=== PATIENT | female | born 1950 | race Caucasian/White ===

== ENCOUNTER → 2016-09-15 | Outpatient (CLI) | payer MEDICARE ==
--- NOTE | 2016-09-18 09:15 | MM ---
Reason for exam: screening (asymptomatic). Last mammogram was performed 12 years ago. History: Patient is postmenopausal, has history of other cancer at age 38, and is nulliparous. Physical Findings: A clinical breast exam by your physician is recommended on an annual basis and results should be correlated with mammographic findings. MG 3D Screening Mammo W/Cad Bilateral CC and MLO view(s) were taken. Prior study comparison: September 05, 2004, left breast diagnostic mammogram. March 02, 2004, left breast special view mammogram. There are scattered fibroglandular densities. Benign calcifications. There is no discrete abnormality. No significant changes when compared with prior studies. ASSESSMENT: Benign, BI-RAD 2 RECOMMENDATION: Routine screening mammogram of both breasts in 1 year.
== END | disposition home or self-care (01) ==
LOC: MERGE 09-12 07:20 → RADMAMWWP 07:30
PROVIDERS: ATTEND Family Medicine
DX: Z12.31 Encounter for screening mammogram for malignant neoplasm of breast (principal)
CPT/HCPCS: 77063; G0202

== ENCOUNTER 2017-03-27 07:39 | Day surgery (SDC) | payer MEDICARE ==
[2017-03-23 09:06] VITALS: BMI 36.7
[~2017-03-27 07:39] MED LIST: LACTATED RINGERS 1,000 ML IV SCH
[2017-03-27 08:08] VITALS: TEMP 97.7
[2017-03-27 08:09] LABS: Glucose,Whole Blood 184 mg/dL (75-99)
[2017-03-27] MEDS ORDERED: LIDOCAINE 1% 20 ML VIAL (10MG/ML) FOR IV START INTRADERMA ONE (08:10)
[2017-03-27] MEDS ORDERED: PROPOFOL 10 MG/ML 20 ML VIAL IV ONE (08:46)
[2017-03-27 09:15] VITALS: RESP 18
--- NOTE | 2017-03-27 09:19 | P.PCN ---
Date of Procedure: 03/27/17 Preoperative Diagnosis: Postoperative Diagnosis: Procedure(s) Performed: Procedure: Colonoscopy and polypectomy. Preoperative diagnosis: Screening for neoplasia. Postoperative diagnosis: 1. Sigmoid diverticulosis with no evidence of acute diverticulitis or strictures. 2. Two small polyps snared at around the splenic and hepatic flexures but no large polyps or cancer. 3. Less than ideal preparation. Preparation: HalfLytely prep. Sedation: Was provided by anesthesia. Brief clinical history: The patient is a 67-year-old female who is referred for this evaluation for screening for neoplasia. She had a prior colonoscopy around 10 years ago. She has no abdominal complaints bleeding or anemia. She does have some change in bowels for some time and she reported passing pebble- like stools whenever she has to urinate. No bleeding or other alarm symptoms. No family history of colon cancer. Procedure: With the patient on her left lateral decubitus position and after informed consent and adequate sedation, the perianal area was inspected and it did not show any fissures or fistulas. There were no masses felt on digital rectal examination. The Olympus CFQ 160L video colonoscope was then inserted in the rectum in the usual fashion and advanced to the cecum. The preparation was less than ideal especially on the left side with solid fecal material and fecal debris that could not be washed off totally. There were multiple diverticular orifices seen scattered in the sigmoid with no evidence of acute diverticulitis or strictures. The mucosa appeared healthy. There were 2 small polyps one around the hepatic flexure and one around the splenic flexure which were snared and retrieved by suction but there were no large polyps or cancer. The patient tolerated the procedure well. Plan: The patient was reassured. Discussed dietary measures. Will await pathology results. I anticipate repeating this exam in 3 years. She will follow-up with you as planned. Implants: Indications for Procedure: Operative Findings: Description of Procedure:
[2017-03-27 09:46] LABS: Glucose,Whole Blood 183 mg/dL (75-99)
[2017-03-27 09:47] VITALS: BP 117/78; PULSE 66
== END 2017-03-27 10:00 | disposition home or self-care (01) ==
LOC: ORWHC2ENDO 07:39
DX: Z12.11 Encounter for screening for malignant neoplasm of colon (principal); D12.3 Benign neoplasm of transverse colon; K63.5 Polyp of colon; K57.30 Diverticulosis of large intestine without perforation or abscess without bleeding; J44.9 Chronic obstructive pulmonary disease, unspecified; E11.9 Type 2 diabetes mellitus without complications; I10 Essential (primary) hypertension; E78.5 Hyperlipidemia, unspecified; Z79.84 Long term (current) use of oral hypoglycemic drugs; Z79.51 Long term (current) use of inhaled steroids; Z79.899 Other long term (current) drug therapy
CPT/HCPCS: 88305; 45385; J2704

== ENCOUNTER → 2017-10-10 | Outpatient (CLI) | payer MEDICARE ==
--- NOTE | 2017-10-15 10:22 | MM ---
Reason for exam: screening (asymptomatic). Last mammogram was performed 1 year and 1 month ago. History: Patient is postmenopausal, has history of other cancer at age 38, and is nulliparous. Physical Findings: A clinical breast exam by your physician is recommended on an annual basis and results should be correlated with mammographic findings. MG 3D Screening Mammo W/Cad Bilateral CC and MLO view(s) were taken. Prior study comparison: September 15, 2016, bilateral MG 3d screening mammo w/cad. September 05, 2004, left breast diagnostic mammogram. There are scattered fibroglandular densities. No significant changes when compared with prior studies. ASSESSMENT: Negative, BI-RAD 1 RECOMMENDATION: Routine screening mammogram of both breasts in 1 year.
== END | disposition home or self-care (01) ==
LOC: RADMAMWWP 06:59
PROVIDERS: ATTEND Family Medicine
DX: Z12.31 Encounter for screening mammogram for malignant neoplasm of breast (principal)
CPT/HCPCS: 77063; 77067

== ENCOUNTER → 2018-06-19 | Outpatient (CLI) | payer MEDICARE ==
--- NOTE | 2018-06-19 10:46 | XR ---
EXAMINATION TYPE: XR chest 2V DATE OF EXAM: 06/19/2018 COMPARISON: 02/05/2012r INDICATION: Dizziness difficulty breathing TECHNIQUE: Frontal and lateral views of the chest are obtained. FINDINGS: The heart size is mildly prominent. The pulmonary vasculature is normal. There is a large thin walled cavitary area within the right upper lobe with an air-fluid level measur ing 7.8 x 9.5 cm. This may be slightly thicker along the inferior lateral right margin. This appears to been interval finding. CT chest is recommended for additional evaluation.. IMPRESSION: 1. Large cavitation within the right upper lobe with an air-fluid level. Additional workup is recomme nded. Infectious etiology should be considered. Neoplasm should be considered within the differential . A [place] level critical message alert has been initiated for Antonio Miranda MD via the [employer] Critical Results System on 06/19/2018 10:43 AM. This message alert has been sent to Antonio Miranda MD via the preferences provided by the clinician for the receipt of Radiology Critical F indings. Message ID [id number].
[2018-06-19 11:27] LABS: Basophils # (A) 0.1 k/uL (0-0.2); Basophils % (A) 1 %; Eosinophils # (A) 0.5 k/uL (0-0.7); Eosinophils % (A) 4 %; HCT 34.6 % (34.0-46.0); HGB 11.1 gm/dL (11.4-16.0); Lymphocytes # (A) 2.3 k/uL (1.0-4.8); Lymphocytes % (A) 17 %; MCHC 32.1 g/dL (31.0-37.0); MCV 90.3 fL (80.0-100.0); Mean Platelet Volume 6.9; Monocytes # (A) 0.7 k/uL (0-1.0); Monocytes % (A) 5 %; Neutrophils # (A) 9.8 k/uL (1.3-7.7); Neutrophils % (A) 72 %; Platelet Count 497 k/uL (150-450); RBC 3.83 m/uL (3.80-5.40); RDW 15.3 % (11.5-15.5); WBC 13.6 k/uL (3.8-10.6)
[2018-06-19 16:59] LABS: Albumin 4.3 g/dL (3.80-4.90); Albumin/Globulin Ratio 1.65 (1.20-2.10); Anion Gap 8.9 mmol/L (4.00-12.00); Carbon Dioxide 27.1 mmol/L (21.6-31.8); Globulin 2.6 g/dL (2.1-3.7); Potassium 4.3 mmol/L (3.5-5.5); Total Bilirubin 0.4 mg/dL (0.2-1.2); Total Protein 6.9 g/dL (6.2-8.2)
[2018-06-21 10:37] LABS: Calcium 13.8 mg/dL (8.7-10.3)
== END | disposition home or self-care (01) ==
LOC: LABWHC1 09:46
PROVIDERS: ATTEND Internal Medicine Cardiovascular Disease
DX: R06.02 Shortness of breath (principal); R60.0 Localized edema
CPT/HCPCS: 36415; 71046; 80053; 83880; 85025

== ENCOUNTER 2018-07-03 16:13 | Inpatient (IN) | payer MEDICARE ==
--- NOTE | 2018-07-03 16:50 | ED ---
General Adult HPI - General Chief complaint: Recheck/Abnormal Lab/Rx Stated complaint: high calcium levels Time Seen by Provider: 07/03/18 16:21 Source: patient, RN notes reviewed Mode of arrival: wheelchair Limitations: no limitations - History of Present Illness Initial comments: Patient is a pleasant 68-year-old female presenting to the emergency department with concern for hypercalcemia. Patient has a difficult time providing history. Patient apparently has been having right hip discomfort for several months and decided to see a staff radiologist for this. Patient wanted her heart checked first. Patient did have x-rays done showing mass on the right side of the lung and was referred to oncologist. Blood work was done there yesterday. Patient received a call today stating that her calcium level was too high and that she would have to come to the hospital. Patient was also made aware that she would need a biopsy done. Patient denies muscle weakness. Patient still has right hip pain which is in the sciatic region. Patient believes she has sciatica. Has not had x-rays done of her right hip. - Related Data Home Medications Medication Instructions Recorded Confirmed Albuterol Nebulized [Ventolin 2.5 mg INHALATION RT-BID PRN 03/23/17 07/03/18 Nebulized] Budesonide/Formoterol Fumarate 2 puff INHALATION RT-HS 03/23/17 07/03/18 [Symbicort 160-4.5 Mcg Inhaler] Cholecalciferol [Vitamin D3] 2,000 unit PO DAILY 03/23/17 07/03/18 Hydrochlorothiazide 25 mg PO DAILY 03/23/17 07/03/18 Krill Oil 500 mg PO DAILY 03/23/17 07/03/18 Lisinopril 40 mg PO DAILY 03/23/17 07/03/18 Simvastatin [Zocor] 20 mg PO HS 03/23/17 07/03/18 Tiotropium [place] [Spiriva] 1 cap INHALATION RT-DAILY 03/23/17 07/03/18 Albuterol Sulfate [Proair Hfa] 2 puff INHALATION RT-Q6H PRN 07/03/18 07/03/18 Hydrocodone/Acetaminophen [[place] 1 tab PO Q4H PRN 07/03/18 07/03/18 10-325] Naproxen [Naprosyn] 500 mg PO Q12HR PRN 07/03/18 07/03/18 amLODIPine [Norvasc] 10 mg PO HS 07/03/18 07/03/18 sitaGLIPtin PHOS/metFORMIN HCL 1 tab PO BID 07/03/18 07/03/18 [Janumet 50-1,000 mg Tablet] Allergies Allergy/AdvReac Type Severity Reaction Status Date / Time No Known Allergies Allergy Verified 07/03/18 16:50 Review of Systems ROS Statement: Those systems with pertinent positive or pertinent negative responses have been documented in the HPI. ROS Other: All systems not noted in ROS Statement are negative. Constitutional: Denies: fever Eyes: Denies: eye pain ENT: Denies: ear pain Respiratory: Denies: cough Cardiovascular: Reports: chest pain (Has been going on for months) Endocrine: Reports: fatigue Gastrointestinal: Denies: abdominal pain Genitourinary: Denies: dysuria Musculoskeletal: Reports: arthralgia (Right hip/sciatic region) Skin: Denies: rash Neurological: Denies: headache Past Medical History Past Medical History: Cancer, COPD, Diabetes Mellitus, Hyperlipidemia, Hypertension Additional Past Medical History / Comment(s): MALIGNANT MELANOMA BACK-REMOVED History of Any Multi-Drug Resistant Organisms: None Reported Past Surgical History: Adenoidectomy, Joint Replacement, Tonsillectomy Additional Past Surgical History / Comment(s): AMPLATZERA ASD OCCLUDER 2002. LT GILBERT X 2. COLONOSCOPY. MELANOMA REMOVED FROM BACK. BILAT CATARACTS Past Anesthesia/Blood Transfusion Reactions: No Reported Reaction Past Psychological History: No Psychological Hx Reported Smoking Status: Current every day smoker Past Alcohol Use History: None Reported Past Drug Use History: None Reported - Past Family History Sister(s) Family Medical History: Cancer Mother Family Medical History: Cancer Father Family Medical History: Cancer Daughter(s) Family Medical History: Cancer Brother(s) Family Medical History: Cancer General Exam Limitations: no limitations General appearance: alert, in no apparent distress Head exam: Present: atraumatic Eye exam: Present: normal appearance, PERRL ENT exam: Present: normal oropharynx Neck exam: Present: normal inspection Respiratory exam: Present: wheezes (Patient states this is chronic and does not want a breathing treatment at this time. Patient does take them at home) Cardiovascular Exam: Present: regular rate, normal rhythm GI/Abdominal exam: Present: soft. Absent: tenderness Extremities exam: Present: normal inspection, full ROM. Absent: tenderness (No hip tenderness), calf tenderness Back exam: Present: normal inspection Neurological exam: Present: alert. Absent: motor sensory deficit Psychiatric exam: Present: normal affect, normal mood Skin exam: Present: normal color Course Vital Signs 07/03/18 16:18 Temperature 97.6 F Pulse Rate 96 Respiratory 20 Rate Blood Pressure 138/81 O2 Sat by Pulse 96 Oximetry EKG Findings - EKG Comments: EKG Findings:: Sinus rhythm at 90. NM 192. QRS 100. QT 338. QTC 413. Right axis. Incomplete right bundle-branch block. Nonspecific ST-T. Medical Decision Making - Medical Decision Making Patient reevaluated and updated. Case was discussed in detail with practitioner Malik, covering for Dr. Rocha, who will admit for Dr. Ariza. Patient case also discussed in detail with Dr. Reynolds who does recommend IV fluids as well as biphosphonate. - Lab Data Result diagrams: 07/03/18 16:40 07/03/18 16:40 Lab Results 07/03/18 07/03/18 07/03/18 Range/Units 16:40 16:40 16:40 WBC 12.1 H (3.8-10.6) k/uL RBC 3.74 L (3.80-5.40) m/uL Hgb 10.6 L (11.4-16.0) gm/dL Hct 33.2 L (34.0-46.0) % MCV 88.8 (80.0-100.0) fL MCH 28.2 (25.0-35.0) pg MCHC 31.8 (31.0-37.0) g/dL RDW 15.0 (11.5-15.5) % Plt Count 454 H (150-450) k/uL Neutrophils % 74 % Lymphocytes % 15 % Monocytes % 4 % Eosinophils % 4 % Basophils % 0 % Neutrophils # 9.0 H (1.3-7.7) k/uL Lymphocytes # 1.8 (1.0-4.8) k/uL Monocytes # 0.5 (0-1.0) k/uL Eosinophils # 0.5 (0-0.7) k/uL Basophils # 0.1 (0-0.2) k/uL PT 9.8 (9.0-12.0) sec INR 0.9 (<1.2) APTT 25.3 (22.0-30.0) sec Sodium 136 L (137-145) mmol/L Potassium 5.0 (3.5-5.1) mmol/L Chloride 101 (98-107) mmol/L Carbon Dioxide 26 (22-30) mmol/L Anion Gap 9 mmol/L BUN 28 H (7-17) mg/dL Creatinine 1.37 H (0.52-1.04) mg/dL Est GFR (CKD-EPI)AfAm 46 (>60 ml/min/1.73 sqM) Est GFR (CKD-EPI)NonAf 40 (>60 ml/min/1.73 sqM) Glucose 111 H (74-99) mg/dL Calcium 14.4 H* (8.4-10.2) mg/dL Ionized Calcium Rishi 7.4 H* (4.5-5.3) mg/dL Magnesium 1.6 (1.6-2.3) mg/dL Total Bilirubin 0.8 (0.2-1.3) mg/dL AST 25 (14-36) U/L ALT 21 (9-52) U/L Alkaline Phosphatase 75 (38-126) U/L Total Protein 7.4 (6.3-8.2) g/dL Albumin 3.8 (3.5-5.0) g/dL TSH 1.220 (0.465-4.680) mIU/L Free T4 1.54 (0.78-2.19) ng/dL Free T3 pg/mL 2.7 L (2.8-5.3) pg/ml - Radiology Data Interpreted by me: Chest x-ray has concern for right upper lobe mass. X-ray of the right hip has concern for bony abnormality in the proximal femur. Critical Care Time Critical Care Time: Yes Total Critical Care Time: 32 Disposition Clinical Impression: Hypercalcemia Disposition: ADMITTED IP TO THIS [facility] Condition: Serious Is patient prescribed a controlled substance at d/c from ED?: No Referrals: Bairon Ariza III, MD [Primary Care Provider] - 1-2 days Decision Time: 18:44
[2018-07-03 17:09] LABS: Basophils # (A) 0.1 k/uL (0-0.2); Basophils % (A) 0 %; Eosinophils # (A) 0.5 k/uL (0-0.7); Eosinophils % (A) 4 %; HCT 33.2 % (34.0-46.0); HGB 10.6 gm/dL (11.4-16.0); Lymphocytes # (A) 1.8 k/uL (1.0-4.8); Lymphocytes % (A) 15 %; MCH 28.2 pg (25.0-35.0); MCHC 31.8 g/dL (31.0-37.0); MCV 88.8 fL (80.0-100.0); Mean Platelet Volume 7.2; Monocytes # (A) 0.5 k/uL (0-1.0); Monocytes % (A) 4 %; Neutrophils % (A) 74 %; Platelet Count 454 k/uL (150-450); RBC 3.74 m/uL (3.80-5.40); WBC 12.1 k/uL (3.8-10.6)
[2018-07-03 17:15] LABS: INR 0.9 (<1.2); Partial Thromboplastin Time 25.3 sec (22.0-30.0); Prothrombin Time 9.8 sec (9.0-12.0)
[2018-07-03 17:19] LABS: Ionized Calcium 7.4 mg/dL (4.5-5.3)
[2018-07-03] MEDS ORDERED: SODIUM CHLORIDE 0.9% 1,000 ML IV STA (17:22)
[2018-07-03] MEDS ORDERED: SODIUM CHLORIDE 0.9% 500 ML 500 ML IV STA (17:22)
[2018-07-03 17:27] LABS: Albumin 3.8 g/dL (3.5-5.0); Magnesium 1.6 mg/dL (1.6-2.3); Total Bilirubin 0.8 mg/dL (0.2-1.3); Total Protein 7.4 g/dL (6.3-8.2)
[2018-07-03 17:42] LABS: Calcium 14.4 mg/dL (8.4-10.2)
[2018-07-03 17:44] LABS: T4, Free (Free Thyroxine) 1.54 ng/dL (0.78-2.19)
[2018-07-03] MEDS ORDERED: ZOLEDRONIC ACID 4 MG in SODIUM CHLORIDE 0.9% 100 ML IV ONE (18:45)
[2018-07-03] MEDS ORDERED: NALOXONE 0.4 MG/ML 1 ML VIAL IV PRN (18:46)
--- NOTE | 2018-07-03 19:33 | XR ---
EXAMINATION TYPE: XR Hip RT and AP Pelvis DATE OF EXAM: 07/03/2018 COMPARISON: NONE HISTORY: Hip pain TECHNIQUE: A single AP view of the pelvis is obtained. Two views of the right hip are obtained. FINDINGS: There is a 4 cm destructive lesion involving the lateral cortex of the subtrochanteric righ t femur. I see no fracture line. Hip joint spaces fairly normal. The pelvic ring is intact. There is left hip prosthesis. Sacroiliac joints appear intact. IMPRESSION: Large destructive lesion in the proximal femur suggestive of tumor. Follow-up is recommended. No frac ture seen.
--- NOTE | 2018-07-03 19:35 | XR ---
EXAMINATION TYPE: XR chest 2V DATE OF EXAM: 07/03/2018 COMPARISON: 06/19/2018 HISTORY: Dysrhythmia TECHNIQUE: Frontal and lateral views of the chest are obtained. FINDINGS: There is some linear and nodular infiltrate in the right upper lobe. Heart is enlarged. Th ere is no heart failure. There are chest leads. Density in the right upper lobe relates to a right up per lobe cavity. The bony thorax is intact. IMPRESSION: 8 cm cavitary lesion in the right upper lobe not significantly different than old chest x-ray. This could relate to infected pneumatocele or necrotic tumor or emphysema with infection. Stab le cardiomegaly. No heart failure.
[2018-07-03] MEDS: SODIUM CHLORIDE 0.9% 1,000 ML IV SCH (21:46)
[2018-07-03] MEDS ORDERED: IPRATROPIUM-ALBUTEROL 3 ML NEB INHALATION PRN (21:59)
[2018-07-03] MEDS ORDERED: ACETAMINOPHEN TAB 325 MG TAB PO PRN (22:03)
[2018-07-03] MEDS ORDERED: ONDANSETRON 4 MG/2 ML VIAL IVP PRN (22:03)
[2018-07-03] MEDS: MELATONIN 3 MG TABLET PO SCH (22:29)
[2018-07-03] MEDS: ATORVASTATIN 10 MG TAB PO SCH (22:29)
[2018-07-03] MEDS: HYDROcodone/APAP 10-325MG 1 EACH TAB PO PRN (22:30)
[2018-07-03 23:06] LABS: Creatine Kinase 124 U/L (30-135)
[2018-07-03 23:19] LABS: Creatine Kinase MB 2.1 ng/mL (0.0-2.4); Troponin I <0.012 ng/mL (0.000-0.034)
[2018-07-04] MEDS: SODIUM CHLORIDE 0.9% 1,000 ML IV SCH ×4 (03:54→23:23)
[2018-07-04 05:44] LABS: Glucose,Whole Blood 104 mg/dL (75-99)
[2018-07-04] MEDS: INSULIN ASPART 100 UNIT/ML 1 ML 10 ML VIAL SQ SCH ×4 (06:52→21:10)
[2018-07-04 06:56] LABS: Basophils # (A) 0.1 k/uL (0-0.2); Basophils % (A) 1 %; Eosinophils # (A) 0.6 k/uL (0-0.7); Eosinophils % (A) 7 %; HCT 31.4 % (34.0-46.0); HGB 9.9 gm/dL (11.4-16.0); Lymphocytes # (A) 1.6 k/uL (1.0-4.8); Lymphocytes % (A) 18 %; MCH 28.8 pg (25.0-35.0); MCHC 31.6 g/dL (31.0-37.0); MCV 91.2 fL (80.0-100.0); Mean Platelet Volume 6.3; Monocytes # (A) 0.5 k/uL (0-1.0); Monocytes % (A) 6 %; Neutrophils # (A) 5.7 k/uL (1.3-7.7); Neutrophils % (A) 65 %; Platelet Count 419 k/uL (150-450); RBC 3.44 m/uL (3.80-5.40); RDW 15.1 % (11.5-15.5); WBC 8.8 k/uL (3.8-10.6)
[2018-07-04 07:08] LABS: Albumin 2.9 g/dL (3.5-5.0); Magnesium 1.6 mg/dL (1.6-2.3); Phosphorus 3.1 mg/dL (2.5-4.5); Potassium 4.1 mmol/L (3.5-5.1); Total Bilirubin 0.5 mg/dL (0.2-1.3); Total Protein 5.9 g/dL (6.3-8.2)
[2018-07-04 07:17] LABS: Calcium 13.7 mg/dL (8.4-10.2)
[2018-07-04] MEDS: IPRATROPIUM 0.5 MG/2.5 ML NEBU INHALATION SCH ×2 (07:48→11:18)
[2018-07-04] MEDS: IPRATROPIUM-ALBUTEROL 3 ML NEB INHALATION SCH ×4 (07:48→19:28)
[2018-07-04] MEDS: CHOLECALCIFEROL 1,000 UNIT TAB PO SCH (08:55)
[2018-07-04] MEDS: CALCITONIN INJ 200 UNIT/ML (MDV) VIAL SQ SCH ×2 (09:55→22:12)
[2018-07-04] MEDS: HYDROcodone/APAP 10-325MG 1 EACH TAB PO PRN (09:55)
--- NOTE | 2018-07-04 10:33 | P.CRDCN ---
History of Present Illness Consult date: 07/04/18 Requesting physician: Lynda Rocha Chief complaint: Right hip pain, shortness of breath History of present illness: This is a pleasant 68-year-old female with history of hypertension, hyperlipidemia, COPD, significant history of smoking, who was recently seen Dr. Miranda in the office as a new patient. She was evaluated there because of symptoms of shortness of breath and bilateral leg swelling. Patient had a CAT scan of the chest which showed right upper lobe large thick-walled cavitary mass with nodular borders, right hilar mediastinal tissue mass, and extensive mediastinal adenopathy most compatible with metastatic lung carcinoma. Bronchoscopy or percutaneous biopsy of the right apical pleural mass could provide a definitive diagnosis. Left pulmonary nodules are subcentimeter nonspecific. Numerous metastatic right pulmonary nodules are noted. Patient was at the office yesterday underwent an echocardiogram with Doppler study and also had a Holter monitor placed. She presented to the hospital on this occasion mainly with symptoms of right hip pain which was quite severe, she also was in to see her oncologist yesterday and was recommended to come to the hospital for admission because of elevated calcium levels. She had a chest x- ray performed here which showed an 8 cm cavitary lesion in the right upper lobe not significantly different than her prior x-ray. An x-ray of the right hip and pelvis was performed which revealed a large destructive lesion in the proximal femur suggestive of tumor. EKG performed on arrival here showed a normal sinus rhythm with occasional PVC, incomplete right bundle branch block pattern, possible right ventricular hypertrophy and nonspecific ST-T wave changes. Blood pressure on arrival here 138/80 with a heart rate in the 90s, 96 % on room air. Blood pressure this morning 128/60 with a heart rate in the 60s , 91% on room air. White blood cell count on admission 12.1, hemoglobin 10.6, sodium 136, potassium 5.0, BUN 28, creatinine 1.3. Calcium level on admission 14.4, ionized calcium measurement 7.4. Magnesium 1.6 troponin negative. TSH 1.2, free T4 1 0.5, free T3 2 0.7. This morning's labs, white blood cell count 8.8, hemoglobin 9.9, platelet count 419. Sodium 137, potassium 4.1, BUN 23 and creatinine 1.4. At the time of my examination this morning, the patient's main complaint is that of severe pain in her right hip. She denies any chest discomfort, she does have a persistent productive cough. Past Medical History Past Medical History: Cancer, COPD, Diabetes Mellitus, Hyperlipidemia, Hypertension Additional Past Medical History / Comment(s): MALIGNANT MELANOMA BACK-REMOVED History of Any Multi-Drug Resistant Organisms: None Reported Past Surgical History: Adenoidectomy, Joint Replacement, Tonsillectomy Additional Past Surgical History / Comment(s): AMPLATZERA ASD OCCLUDER 2002. LT GILBERT X 2. COLONOSCOPY. MELANOMA REMOVED FROM BACK. BILAT CATARACTS Past Anesthesia/Blood Transfusion Reactions: No Reported Reaction Past Psychological History: No Psychological Hx Reported Smoking Status: Current every day smoker Past Alcohol Use History: None Reported Additional Past Alcohol Use History / Comment(s): SMOKES 1/2 - 1 PPD SINCE AGE 21 Past Drug Use History: None Reported - Past Family History Sister(s) Family Medical History: Cancer Mother Family Medical History: Cancer Father Family Medical History: Cancer Daughter(s) Family Medical History: Cancer Brother(s) Family Medical History: Cancer Medications and Allergies Home Medications Medication Instructions Recorded Confirmed Type Albuterol Nebulized [Ventolin 2.5 mg INHALATION RT-BID PRN 03/23/17 07/03/18 History Nebulized] Budesonide/Formoterol Fumarate 2 puff INHALATION RT-HS 03/23/17 07/03/18 History [Symbicort 160-4.5 Mcg Inhaler] Cholecalciferol [Vitamin D3] 2,000 unit PO DAILY 03/23/17 07/03/18 History Hydrochlorothiazide 25 mg PO DAILY 03/23/17 07/03/18 History Krill Oil 500 mg PO DAILY 03/23/17 07/03/18 History Lisinopril 40 mg PO DAILY 03/23/17 07/03/18 History Simvastatin [Zocor] 20 mg PO HS 03/23/17 07/03/18 History Tiotropium [place] [Spiriva] 1 cap INHALATION RT-DAILY 03/23/17 07/03/18 History Albuterol Sulfate [Proair Hfa] 2 puff INHALATION RT-Q6H PRN 07/03/18 07/03/18 History Hydrocodone/Acetaminophen [[place] 1 tab PO Q4H PRN 07/03/18 07/03/18 History 10-325] Naproxen [Naprosyn] 500 mg PO Q12HR PRN 07/03/18 07/03/18 History amLODIPine [Norvasc] 10 mg PO HS 07/03/18 07/03/18 History sitaGLIPtin PHOS/metFORMIN HCL 1 tab PO BID 07/03/18 07/03/18 History [Janumet 50-1,000 mg Tablet] Allergies Allergy/AdvReac Type Severity Reaction Status Date / Time No Known Allergies Allergy Verified 07/03/18 16:50 Physical Exam Vitals: Vital Signs Temp Pulse Pulse Resp BP BP Pulse Ox 07/04/18 08:00 97.0 F L 68 16 128/66 91 L 07/04/18 03:51 97.0 F L 66 17 134/67 93 L 07/03/18 23:47 97.9 F 88 18 136/77 92 L 07/03/18 20:00 80 19 07/03/18 19:42 73 19 153/73 97 07/03/18 19:36 98.0 F 87 17 135/75 93 L 07/03/18 16:18 97.6 F 96 20 138/81 96 Intake and Output 07/03/18 07/04/18 07/04/18 22:59 06:59 14:59 Intake Total 220 Balance 220 Intake: Oral 220 Other: Voiding Method Toilet Toilet # Voids 1 1 Weight 88.451 kg 88.8 kg PHYSICAL EXAMINATION: GENERAL: 68-year-old female in no acute distress at the time of my examination HEENT: Head is atraumatic, normocephalic. Pupils equal, round. Sclera anicteric. Conjunctiva are clear. Mucous membranes of the mouth are moist. Neck is supple. There is no elevated jugular venous pressure. No carotid bruit is heard. HEART EXAMINATION: Heart S1, S2 normal. No murmur or gallop heard. CHEST EXAMINATION: Lungs reveal scattered coarse rhonchi throughout. ABDOMEN: Soft, nontender. Bowel sounds are heard. No organomegaly noted. EXTREMITIES: 2+ peripheral pulses with evidence of peripheral edema and no calf tenderness noted. NEUROLOGIC patient is awake, alert and oriented X3. . Results - Results Results: EKG shows a normal sinus rhythm with occasional PVC, incomplete right bundle branch block pattern and nonspecific ST-T wave changes 07/04/18 06:24 07/04/18 06:24 Cardiac Enzymes 07/03/18 07/03/18 07/04/18 Range/Units 16:40 16:51 06:24 AST 25 14 (14-36) U/L CK-MB (CK-2) 2.1 (0.0-2.4) ng/mL Troponin I <0.012 (0.000-0.034) ng/mL Coagulation 07/03/18 Range/Units 16:40 PT 9.8 (9.0-12.0) sec APTT 25.3 (22.0-30.0) sec CBC 07/03/18 07/04/18 Range/Units 16:40 06:24 WBC 12.1 H 8.8 (3.8-10.6) k/uL RBC 3.74 L 3.44 L (3.80-5.40) m/uL Hgb 10.6 L 9.9 L (11.4-16.0) gm/dL Hct 33.2 L 31.4 L (34.0-46.0) % Plt Count 454 H 419 (150-450) k/uL Comprehensive Metabolic Panel 07/03/18 07/04/18 Range/Units 16:40 06:24 Sodium 136 L 137 (137-145) mmol/L Potassium 5.0 4.1 (3.5-5.1) mmol/L Chloride 101 106 (98-107) mmol/L Carbon Dioxide 26 27 (22-30) mmol/L BUN 28 H 23 H (7-17) mg/dL Creatinine 1.37 H 1.40 H (0.52-1.04) mg/dL Glucose 111 H 96 (74-99) mg/dL Calcium 14.4 H* 13.7 H* (8.4-10.2) mg/dL AST 25 14 (14-36) U/L ALT 21 16 (9-52) U/L Alkaline Phosphatase 75 70 (38-126) U/L Total Protein 7.4 5.9 L (6.3-8.2) g/dL Albumin 3.8 2.9 L (3.5-5.0) g/dL Current Medications Generic Name Dose Route Start Last Admin Trade Name Freq PRN Reason Stop Dose Admin Acetaminophen 650 mg 07/03/18 22:03 Tylenol Tab PO Q6HR PRN Fever and/ or Pain Hydrocodone Bitart/Acetaminophen 1 each 07/03/18 21:58 07/04/18 09:55 [place] 10 PO 1 each Q4H PRN Administration Pain Albuterol/Ipratropium 3 ml 07/04/18 08:00 07/04/18 07:48 Duoneb 0.5 Mg-3 Mg/3 Ml Soln INHALATION Not Given RT-QID MABLE Albuterol/Ipratropium 3 ml 07/03/18 21:59 Duoneb 0.5 Mg-3 Mg/3 Ml Soln INHALATION RT-Q2H PRN Shortness Of Breath Or Wheezing Atorvastatin Calcium 10 mg 07/03/18 21:00 07/03/18 22:29 Lipitor PO 10 mg HS MABLE Administration Budesonide/Formoterol Fumarate 2 puff 07/04/18 20:00 Symbicort 160-4.5 Mcg Inhaler INHALATION RT-HS MABLE Calcitonin [place] 350 unit 07/04/18 09:15 07/04/18 09:55 Miacalcin SQ 07/05/18 21:01 350 unit Q12HR MABLE Administration Cholecalciferol 2,000 unit 07/04/18 09:00 07/04/18 08:55 Vitamin D3 PO 2,000 unit DAILY MABLE Administration Hydromorphone HCl 0.5 mg 07/03/18 22:01 Dilaudid IVP Q4HR PRN Breakthrough Pain Sodium Chloride 1,000 mls @ 150 mls/hr 07/03/18 19:00 07/04/18 08:55 Saline 0.9% IV 150 mls/hr .Q6H40M MABLE Administration Insulin Aspart 0 unit 07/04/18 07:30 07/04/18 06:52 Novolog SQ Not Given ACHS [facility] Protocol Ipratropium [place] 0.5 mg 07/04/18 08:00 07/04/18 07:48 Atrovent Nebulized INHALATION Not Given RT-QID MABLE Melatonin 6 mg 07/03/18 22:15 07/03/18 22:29 Melatonin PO 6 mg HS MABLE Administration Naloxone HCl 0.2 mg 07/03/18 18:46 Narcan IV Q2M PRN Opioid Reversal Ondansetron HCl 4 mg 07/03/18 22:03 Zofran IVP Q6HR PRN Nausea And Vomiting Intake and Output 07/03/18 07/04/18 07/04/18 22:59 06:59 14:59 Intake Total 220 Balance 220 Intake: Oral 220 Other: Voiding Method Toilet Toilet # Voids 1 1 Weight 88.451 kg 88.8 kg 07/04/18 06:24 07/04/18 06:24 EKG Interpretations (text) EKG shows a normal sinus rhythm with occasional PVC, incomplete right bundle branch block pattern and nonspecific ST-T wave changes Assessment and Plan Plan: Assessment and plan #1 symptoms of severe right hip pain with evidence of a large destructive lesion in the proximal femur suggestive of tumor. #2 hypercalcemia #3 right upper lobe cavitary mass noted on computed tomography scan and chest x- ray. Oncology following. #4 hypertension #5 hyperlipidemia #6 nicotine dependence #7 COPD Plan Patient had an echocardiogram with Doppler study performed in the office yesterday we will get a report of that. She still has a 24-hour Holter monitor on, we'll continue to monitor her here. We will resume the patient's Norvasc and hydrochlorothiazide. Continue current therapy. DNP note has been reviewed, I agree with a documented findings and plan of care. Patient was seen and examined.
[2018-07-04] MEDS: HYDROmorphone 1 MG/ML 1 ML SYRINGE IVP PRN ×3 (10:45→21:22)
[2018-07-04 12:03] LABS: Glucose,Whole Blood 125 mg/dL (75-99)
[2018-07-04] MEDS ORDERED: ALBUTEROL NEBULIZED 2.5 MG/3 ML INHALATION PRN (12:46)
[2018-07-04] MEDS ORDERED: ALBUTEROL INHALER 60 PUFF/8 GM INHALER INHALATION PRN (12:46)
--- NOTE | 2018-07-04 12:46 | P.HPIM ---
History of Present Illness Present is a very pleasant 68-year-old female admitted for hypercalcemia. Patient is hypotensive because concussion going up to 14.5. Patient was recently diagnosed with cancer after the biopsy of her right upper lobe. Patient is chronic smoker smokes about 1 pack per day does have history of COPD not in acute exacerbation. Patient denied any fevers chills nausea vomiting abdominal pain. Patient is presently on zolindronic acid, IV fluids at 1 50 mL per hour and calcitonin. Patient's creatinine is bit worse to 1.4. Recent creatinine appears to be around 1.3. Patient denied any significant shortness of breath patient is comparing of right hip pain undergoing bone scan. Review of Systems REVIEW OF SYSTEMS: CONSTITUTIONAL: No fever, no malaise, no fatigue. HEENT: No recent visual problems or hearing problems. Denied any sore throat. CARDIOVASCULAR: No chest pain, orthopnea, PND, no palpitations, no syncope. PULMONARY: No shortness of breath, no cough, no hemoptysis. GASTROINTESTINAL: No diarrhea, no nausea, no vomiting, no abdominal pain. Normoactive bowel sounds. NEUROLOGICAL: No headaches, no weakness, no numbness. HEMATOLOGICAL: Denies any bleeding or petechiae. GENITOURINARY: Denies any burning micturition, frequency, or urgency. MUSCULOSKELETAL/RHEUMATOLOGICAL: Denies any joint pain, swelling, or any muscle pain. ENDOCRINE: Denies any polyuria or polydipsia. The rest of the 14-point review of systems is negative. Past Medical History Past Medical History: Cancer, COPD, Diabetes Mellitus, Hyperlipidemia, Hypertension Additional Past Medical History / Comment(s): MALIGNANT MELANOMA BACK-REMOVED History of Any Multi-Drug Resistant Organisms: None Reported Past Surgical History: Adenoidectomy, Joint Replacement, Tonsillectomy Additional Past Surgical History / Comment(s): AMPLATZERA ASD OCCLUDER 2001. LT GILBERT X 2. COLONOSCOPY. MELANOMA REMOVED FROM BACK. BILAT CATARACTS Past Anesthesia/Blood Transfusion Reactions: No Reported Reaction Past Psychological History: No Psychological Hx Reported Smoking Status: Current every day smoker Past Alcohol Use History: None Reported Additional Past Alcohol Use History / Comment(s): SMOKES 1/2 - 1 PPD SINCE AGE 21 Past Drug Use History: None Reported - Past Family History Sister(s) Family Medical History: Cancer Mother Family Medical History: Cancer Father Family Medical History: Cancer Daughter(s) Family Medical History: Cancer Brother(s) Family Medical History: Cancer Medications and Allergies Home Medications Medication Instructions Recorded Confirmed Type Albuterol Nebulized [Ventolin 2.5 mg INHALATION RT-BID PRN 03/23/17 07/03/18 History Nebulized] Budesonide/Formoterol Fumarate 2 puff INHALATION RT-HS 03/23/17 07/03/18 History [Symbicort 160-4.5 Mcg Inhaler] Cholecalciferol [Vitamin D3] 2,000 unit PO DAILY 03/23/17 07/03/18 History Hydrochlorothiazide 25 mg PO DAILY 03/23/17 07/03/18 History Krill Oil 500 mg PO DAILY 03/23/17 07/03/18 History Lisinopril 40 mg PO DAILY 03/23/17 07/03/18 History Simvastatin [Zocor] 20 mg PO HS 03/23/17 07/03/18 History Tiotropium [place] [Spiriva] 1 cap INHALATION RT-DAILY 03/23/17 07/03/18 History Albuterol Sulfate [Proair Hfa] 2 puff INHALATION RT-Q6H PRN 07/03/18 07/03/18 History Hydrocodone/Acetaminophen [[place] 1 tab PO Q4H PRN 07/03/18 07/03/18 History 10-325] Naproxen [Naprosyn] 500 mg PO Q12HR PRN 07/03/18 07/03/18 History amLODIPine [Norvasc] 10 mg PO HS 07/03/18 07/03/18 History sitaGLIPtin PHOS/metFORMIN HCL 1 tab PO BID 07/03/18 07/03/18 History [Janumet 50-1,000 mg Tablet] Allergies Allergy/AdvReac Type Severity Reaction Status Date / Time No Known Allergies Allergy Verified 07/03/18 16:50 Physical Exam Vitals: Vital Signs Temp Pulse Pulse Resp BP BP Pulse Ox 07/04/18 12:00 97.1 F L 71 16 127/73 94 L 07/04/18 11:12 72 07/04/18 11:02 72 07/04/18 08:00 97.0 F L 68 16 128/66 91 L 07/04/18 03:51 97.0 F L 66 17 134/67 93 L 07/03/18 23:47 97.9 F 88 18 136/77 92 L 07/03/18 20:00 80 19 07/03/18 19:42 73 19 153/73 97 07/03/18 19:36 98.0 F 87 17 135/75 93 L 07/03/18 16:18 97.6 F 96 20 138/81 96 Intake and Output 07/03/18 07/04/18 07/04/18 22:59 06:59 14:59 Intake Total 820 Balance 820 Intake: Intake, IV Titration 600 Amount Sodium Chloride 0.9% 1, 600 000 ml @ 150 mls/hr IV . Q6H40M [facility] Rx#:[id number] Oral 220 Other: Voiding Method Toilet Toilet # Voids 1 1 1 Weight 88.451 kg 88.8 kg 88.8 kg PHYSICAL EXAMINATION: GENERAL: The patient is alert and oriented x3, not in any acute distress. Well developed, well nourished. HEENT: Pupils are round and equally reacting to light. EOMI. No scleral icterus. No conjunctival pallor. Normocephalic, atraumatic. No pharyngeal erythema. No thyromegaly. CARDIOVASCULAR: S1 and S2 present. No murmurs, rubs, or gallops. PULMONARY: Chest is clear to auscultation, no wheezing or crackles. ABDOMEN: Soft, nontender, nondistended, normoactive bowel sounds. No palpable organomegaly. MUSCULOSKELETAL: No joint swelling or deformity. EXTREMITIES: No cyanosis, clubbing, or pedal edema. NEUROLOGICAL: Gross neurological examination did not reveal any focal deficits. SKIN: No rashes. Results CBC & Chem 7: 07/04/18 06:24 07/04/18 06:24 Labs: Abnormal Lab Results - Last 24 Hours (Table) 07/03/18 07/03/18 07/04/18 Range/Units 16:40 16:40 05:40 WBC 12.1 H (3.8-10.6) k/uL RBC 3.74 L (3.80-5.40) m/uL Hgb 10.6 L (11.4-16.0) gm/dL Hct 33.2 L (34.0-46.0) % Plt Count 454 H (150-450) k/uL Neutrophils # 9.0 H (1.3-7.7) k/uL Sodium 136 L (137-145) mmol/L BUN 28 H (7-17) mg/dL Creatinine 1.37 H (0.52-1.04) mg/dL Glucose 111 H (74-99) mg/dL POC Glucose (mg/dL) 104 H (75-99) mg/dL Calcium 14.4 H* (8.4-10.2) mg/dL Ionized Calcium Rishi 7.4 H* (4.5-5.3) mg/dL Total Protein (6.3-8.2) g/dL Albumin (3.5-5.0) g/dL Free T3 pg/mL 2.7 L (2.8-5.3) pg/ml 07/04/18 07/04/18 07/04/18 Range/Units 06:24 06:24 11:31 WBC (3.8-10.6) k/uL RBC 3.44 L (3.80-5.40) m/uL Hgb 9.9 L (11.4-16.0) gm/dL Hct 31.4 L (34.0-46.0) % Plt Count (150-450) k/uL Neutrophils # (1.3-7.7) k/uL Sodium (137-145) mmol/L BUN 23 H (7-17) mg/dL Creatinine 1.40 H (0.52-1.04) mg/dL Glucose (74-99) mg/dL POC Glucose (mg/dL) 125 H (75-99) mg/dL Calcium 13.7 H* (8.4-10.2) mg/dL Ionized Calcium Rishi (4.5-5.3) mg/dL Total Protein 5.9 L (6.3-8.2) g/dL Albumin 2.9 L (3.5-5.0) g/dL Free T3 pg/mL (2.8-5.3) pg/ml Thrombosis Risk Factor Assmnt - Choose All That Apply Each Factor Represents 1 point: Obesity (BMI >25) Each Risk Factor Represents 2 Points: Age 61-74 years, Malignancy Thrombosis Risk Factor Assessment Total Risk Factor Score: 5 Thrombosis Risk Factor Assessment Level: High Risk Assessment and Plan Plan: - hypercalcemia: Secondary to malignancy: Continue with IV fluids, zoledronic acid and calcitonin. Bone scan as mentioned above because for right hip pain -Lung cancer type of lung cancer is unknown probably metastatic stage IV -Hypertension -Hyperlipidemia -COPD without any acute exacerbation - nicotine dependence For above-mentioned chronic pelvic medical problems patient will be resumed and continued on appropriate home medications
[2018-07-04 13:45] LABS: Hemoglobin A1C 5.7 % (4.0-6.0)
--- NOTE | 2018-07-04 15:46 | P.CNPUL ---
History of Present Illness Consult date: 07/04/18 Reason for consult: lung mass History of present illness: Is a 68-year-old here patient, a chronic smoker with known history of COPD diabetes hypertension hyperlipidemia, presented to the hospital because of a worsening right hip pain. This pain started approximately 2 weeks ago to the point where the patient was unable to put any weight on her right hip. She was initially seen by cardiology. As part of her workup, she had a chest x-ray that abnormal and following that she underwent a CAT scan of the chest that showed a large cavitating thick-walled lesion in the right upper lobe in addition to right hilar and mediastinal mass and extensive mediastinal lymphadenopathy consistent with primary bronchogenic cancer, likely of a squamous cell type due to the extensive cavitation seen in the right upper lobe. The CAT scan also showed pulmonary nodules on the left that were subcentimeter. These were however consistent with metastatic disease knowing that the patient has several metastatic right sided pulmonary lesions also. X- ray of the hip was also completed and the patient had a large destructive lesion in the proximal femur suggestive of malignancy/metastatic involvement. The patient came into the hospital because of the right hip pain and shortness of breath and generalized weakness. Electrodes were done and the patient's creatinine was at 1.4 and a calcium level at a time of admission was 14.4. The patient was given IV fluids. The patient was given Zomig and they're monitoring the calcium level for now. She has chronic exertional dyspnea. She has a chronic congested cough. No hemoptysis. No pleurisy. No previous TB exposure. She has [id number] smoking history. The patient will be seen by hematology oncology. Altered mentation. No change in the voice characteristics. Review of Systems Constitutional: Denies chills, Denies fever Eyes: denies as per HPI, denies blurred vision, denies bulging eye, denies decreased vision, denies diplopia, denies discharge, denies dry eye Ears: deny: decreased hearing, ear discharge, earache, tinnitus Ears, nose, mouth and throat: Reports as per HPI Breasts: absent: as per HPI, change in shape, gynecomastia, masses, nipple discharge, pain, skin changes, swelling Cardiovascular: Reports decreased exercise tolerance, Reports dyspnea on exertion Respiratory: Reports cough, Reports dyspnea, Reports wheezing Gastrointestinal: Denies abdominal pain, Denies diarrhea, Denies nausea, Denies vomiting Genitourinary: Denies dysuria, Denies hematuria Menstruation: Reports as per HPI Musculoskeletal: Reports gait dysfunction, Reports hot joints (Right hip pain) Musculoskeletal: absent: ankle pain, ankle stiffness, ankle swelling Integumentary: Denies pruritus, Denies rash Neurological: Denies numbness, Denies weakness Psychiatric: Reports as per HPI Endocrine: Reports as per HPI Hematologic/Lymphatic: Reports as per HPI Allergic/Immunologic: Reports as per HPI Past Medical History Past Medical History: Cancer, COPD, Diabetes Mellitus, Hyperlipidemia, Hypertension Additional Past Medical History / Comment(s): MALIGNANT MELANOMA BACK-REMOVED History of Any Multi-Drug Resistant Organisms: None Reported Past Surgical History: Adenoidectomy, Joint Replacement, Tonsillectomy Additional Past Surgical History / Comment(s): AMPLATZERA ASD OCCLUDER 2002. LT GILBERT X 2. COLONOSCOPY. MELANOMA REMOVED FROM BACK. BILAT CATARACTS Past Anesthesia/Blood Transfusion Reactions: No Reported Reaction Past Psychological History: No Psychological Hx Reported Smoking Status: Current every day smoker Past Alcohol Use History: None Reported Additional Past Alcohol Use History / Comment(s): SMOKES 1/2 - 1 PPD SINCE AGE 21 Past Drug Use History: None Reported - Past Family History Sister(s) Family Medical History: Cancer Mother Family Medical History: Cancer Father Family Medical History: Cancer Daughter(s) Family Medical History: Cancer Brother(s) Family Medical History: Cancer Medications and Allergies Home Medications Medication Instructions Recorded Confirmed Type Albuterol Nebulized [Ventolin 2.5 mg INHALATION RT-BID PRN 03/23/17 07/03/18 History Nebulized] Budesonide/Formoterol Fumarate 2 puff INHALATION RT-HS 03/23/17 07/03/18 History [Symbicort 160-4.5 Mcg Inhaler] Cholecalciferol [Vitamin D3] 2,000 unit PO DAILY 03/23/17 07/03/18 History Hydrochlorothiazide 25 mg PO DAILY 03/23/17 07/03/18 History Krill Oil 500 mg PO DAILY 03/23/17 07/03/18 History Lisinopril 40 mg PO DAILY 03/23/17 07/03/18 History Simvastatin [Zocor] 20 mg PO HS 03/23/17 07/03/18 History Tiotropium [place] [Spiriva] 1 cap INHALATION RT-DAILY 03/23/17 07/03/18 History Albuterol Sulfate [Proair Hfa] 2 puff INHALATION RT-Q6H PRN 07/03/18 07/03/18 History Hydrocodone/Acetaminophen [[place] 1 tab PO Q4H PRN 07/03/18 07/03/18 History 10-325] Naproxen [Naprosyn] 500 mg PO Q12HR PRN 07/03/18 07/03/18 History amLODIPine [Norvasc] 10 mg PO HS 07/03/18 07/03/18 History sitaGLIPtin PHOS/metFORMIN HCL 1 tab PO BID 07/03/18 07/03/18 History [Janumet 50-1,000 mg Tablet] Allergies Allergy/AdvReac Type Severity Reaction Status Date / Time No Known Allergies Allergy Verified 07/03/18 16:50 Physical Exam Vitals: Vital Signs Temp Pulse Pulse Resp BP BP Pulse Ox 07/04/18 12:00 97.1 F L 71 16 127/73 94 L 07/04/18 11:12 72 07/04/18 11:02 72 07/04/18 08:00 97.0 F L 68 16 128/66 91 L 07/04/18 03:51 97.0 F L 66 17 134/67 93 L 07/03/18 23:47 97.9 F 88 18 136/77 92 L 07/03/18 20:00 80 19 07/03/18 19:42 73 19 153/73 97 07/03/18 19:36 98.0 F 87 17 135/75 93 L 07/03/18 16:18 97.6 F 96 20 138/81 96 Intake and Output 07/04/18 07/04/18 07/04/18 06:59 14:59 22:59 Intake Total 1060 Balance 1060 Intake: Intake, IV Titration 600 Amount Sodium Chloride 0.9% 1, 600 000 ml @ 150 mls/hr IV . Q6H40M [facility] Rx#:[id number] Oral 460 Other: Voiding Method Toilet # Voids 1 1 Weight 88.8 kg 88.8 kg Gen. appearance, comfortable likely distress. Head exam was generally normal. There was no scleral icterus or corneal arcus. Mucous membranes were moist. Neck was supple and without jugular venous distension, thyromegaly, or carotid bruits. Carotids were easily palpable bilaterally. There was no adenopathy. Lungs sounds are diminished bilaterally along with some few scattered expiratory wheezes throughout the lung palacios. Cardiac exam revealed the PMI to be normally situated and sized. The rhythm was regular and no extrasystoles were noted during several minutes of auscultation. The first and second heart sounds were normal and physiologic splitting of the second heart sound was noted. There were no murmurs, rubs, clicks, or gallops. Abdominal exam revealed normal bowel sounds. The abdomen was soft, non-tender, and without masses, organomegaly, or appreciable enlargement of the abdominal aorta. Examination of the extremities revealed easily palpable radial, femoral and pedal pulses. There was no cyanosis, clubbing or edema. Neurologically the patient is awake and alert and there is no focal neurological deficit. Gait is off as the patient is having right hip pain and she is unable to bear weight on the right hip. Examination of the skin revealed no evidence of significant rashes, suspicious appearing nevi or other concerning lesions. There is a scar in the upper back posteriorly related to a previous resection of a malignant melanoma. Results - Laboratory Findings CBC and BMP: 07/04/18 06:24 07/04/18 06:24 PT/INR, D-dimer PT 9.8 sec (9.0-12.0) 07/03/18 16:40 INR 0.9 (<1.2) 07/03/18 16:40 Abnormal lab findings: Abnormal Labs 07/03/18 07/03/18 07/04/18 16:40 16:40 05:40 WBC 12.1 H RBC 3.74 L Hgb 10.6 L Hct 33.2 L Plt Count 454 H Neutrophils # 9.0 H Sodium 136 L BUN 28 H Creatinine 1.37 H Glucose 111 H POC Glucose (mg/dL) 104 H Calcium 14.4 H* Ionized Calcium Rishi 7.4 H* Total Protein Albumin Free T3 pg/mL 2.7 L 07/04/1818 18 06:24 06:24 11:31 WBC RBC 3.44 L Hgb 9.9 L Hct 31.4 L Plt Count Neutrophils # Sodium BUN 23 H Creatinine 1.40 H Glucose POC Glucose (mg/dL) 125 H Calcium 13.7 H* Ionized Calcium Rishi Total Protein 5.9 L Albumin 2.9 L Free T3 pg/mL - Diagnostic Findings Chest x-ray: image reviewed CT scan - chest: image reviewed Assessment and Plan Plan: Assessment 1 right upper lobe cavitating mass with thick walled characteristics and nodular borders in addition to right hilar and mediastinal lymphadenopathy and a 7.5 cm soft tissue mass with extensive mediastinal lymphadenopathy consistent with metastatic lung carcinoma, highly suspect 7 cell carcinoma based on the extensive cavitation seen he had noted the patient also has pulmonary nodules bilaterally more so on the right. 2 right hip metastatic involvement with secondary pain and inability to walk and weightbearing 3 acute hypercalcemia secondary to metastatic carcinoma, this is secondary to skeletal involvement and skeletal metastases 4 COPD 5 chronic smoker 6 remote history of melanoma resected 7 retention 8 hyperlipidemia 9 smoker Plan Discussed the findings with the patient. The patient will need immediate radiation oncology consultation regarding the right hip metastatic involvement. She will also need a orthopedic consultation evaluation to assess the risk of fracture noted that there is a metastatic involvement of the right hip. The bronchoscopy will be done tomorrow and keep the patient appeared after midnight for bronchoscopy and chest but continue to aspirate of the right mediastinal mass to establish a tissue diagnosis. Meanwhile, the patient's acute hypercalcemia will be treated with IV fluids and the patient was given Zomig and a calcium level is on the decline. Insult medical oncology. Consult radiation oncology. Prognosis poor baseline above-mentioned comorbidities. I offered pain control. We'll follow.
--- NOTE | 2018-07-04 16:14 | NM ---
EXAMINATION TYPE: NM bone scan whole body DATE OF EXAM: 07/04/2018 COMPARISON: CT chest dated 06/27/2018 HISTORY: Lung mass Delayed whole-body scanning was performed following the injection of 24.4 mCi Tc 99m MDP. Images acq uired 4.25 hours post injection. FINDINGS: There is focal radiotracer uptake at the posterior approximately fourth left rib without CT correlate , likely related to degenerative change. Mild bilateral uptake is seen at the acromio clavicular join ts, sternoclavicular joints, glenohumeral joints, sacroiliac joints, hips, knees, ankles, and mid fee t. This uptake is likely from degenerative arthropathy. No suspicious focal radiotracer uptake is see n within the axial or appendicular skeleton. IMPRESSION: No suspicious findings to suggest metastasis. 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
[2018-07-04 17:15] LABS: Glucose,Whole Blood 135 mg/dL (75-99)
--- NOTE | 2018-07-04 17:32 | P.CONS ---
History of Present Illness - Reason for Consult Consult date: 07/04/18 lung mass, hypercalcemia Requesting physician: Toni Newsome - Chief Complaint sent to hospital per physician - History of Present Illness Mrs. Castro is a very pleasant female who saw Dr. Estrella in consult for the 1st time on 07/02. She states her symptoms started around October, she noted progressive dyspnea and right shoulder pain. She had a suspicious CXR which led to CT chest on 06/27/18 which revealed a very large cavitary lesion in RUL, 7.9 x 7.7 x 7.6cm, multiple adjacent satellite nodules, extensive mediastinal adenopathies, up to 4.9 cm node and right hilar adenopathy. She had been more fatigued and tired the last few months, 18lb wt. loss in 1 month, positive for exertional dyspnea, dry cough, no hemoptysis, right shoulder pain and progressive severe right hip pain since April, radiates to right thigh, 8- 9/10 in severity, limits mobility, denied headaches, vision changes, change in bowel habits, mild swelling in her legs. Plan was to proceed with biopsy and imaging, labs were done revealing a Ca++ of 14.2. Pt was contacted at home and directed to ER. Pt received zoledronic acid on admit, fluids started. Pulmonary, Radiation Oncology consulted Review of Systems 14 point ROS is negative except as stated in HPI Past Medical History Past Medical History: Cancer, COPD, Diabetes Mellitus, Hyperlipidemia, Hypertension Additional Past Medical History / Comment(s): MALIGNANT MELANOMA BACK-REMOVED History of Any Multi-Drug Resistant Organisms: None Reported Past Surgical History: Adenoidectomy, Joint Replacement, Tonsillectomy Additional Past Surgical History / Comment(s): AMPLATZERA ASD OCCLUDER 2001. LT GILBERT X 2. COLONOSCOPY. MELANOMA REMOVED FROM BACK. BILAT CATARACTS Past Anesthesia/Blood Transfusion Reactions: No Reported Reaction Past Psychological History: No Psychological Hx Reported Smoking Status: Current every day smoker Past Alcohol Use History: None Reported Additional Past Alcohol Use History / Comment(s): SMOKES 1/2 - 1 PPD SINCE AGE 21 Past Drug Use History: None Reported - Past Family History Sister(s) Family Medical History: Cancer Mother Family Medical History: Cancer Father Family Medical History: Cancer Daughter(s) Family Medical History: Cancer Brother(s) Family Medical History: Cancer Medications and Allergies Home Medications Medication Instructions Recorded Confirmed Type Albuterol Nebulized [Ventolin 2.5 mg INHALATION RT-BID PRN 03/23/17 07/03/18 History Nebulized] Budesonide/Formoterol Fumarate 2 puff INHALATION RT-HS 03/23/17 07/03/18 History [Symbicort 160-4.5 Mcg Inhaler] Cholecalciferol [Vitamin D3] 2,000 unit PO DAILY 03/23/17 07/03/18 History Hydrochlorothiazide 25 mg PO DAILY 03/23/17 07/03/18 History Krill Oil 500 mg PO DAILY 03/23/17 07/03/18 History Lisinopril 40 mg PO DAILY 03/23/17 07/03/18 History Simvastatin [Zocor] 20 mg PO HS 03/23/17 07/03/18 History Tiotropium [place] [Spiriva] 1 cap INHALATION RT-DAILY 03/23/17 07/03/18 History Albuterol Sulfate [Proair Hfa] 2 puff INHALATION RT-Q6H PRN 07/03/18 07/03/18 History Hydrocodone/Acetaminophen [[place] 1 tab PO Q4H PRN 07/03/18 07/03/18 History 10-325] Naproxen [Naprosyn] 500 mg PO Q12HR PRN 07/03/18 07/03/18 History amLODIPine [Norvasc] 10 mg PO HS 07/03/18 07/03/18 History sitaGLIPtin PHOS/metFORMIN HCL 1 tab PO BID 07/03/18 07/03/18 History [Janumet 50-1,000 mg Tablet] Allergies Allergy/AdvReac Type Severity Reaction Status Date / Time No Known Allergies Allergy Verified 07/03/18 16:50 Physical Exam Vitals: Vital Signs Temp Pulse Pulse Resp BP BP Pulse Ox 07/04/18 16:00 97.6 F 74 16 122/69 95 07/04/18 12:00 97.1 F L 71 16 127/73 94 L 07/04/18 11:12 72 07/04/18 11:02 72 07/04/18 08:00 97.0 F L 68 16 128/66 91 L 07/04/18 03:51 97.0 F L 66 17 134/67 93 L 07/03/18 23:47 97.9 F 88 18 136/77 92 L 07/03/18 20:00 80 19 07/03/18 19:42 73 19 153/73 97 07/03/18 19:36 98.0 F 87 17 135/75 93 L Intake and Output 07/04/18 07/04/18 07/04/18 06:59 14:59 22:59 Intake Total 1060 Balance 1060 Intake: Intake, IV Titration 600 Amount Sodium Chloride 0.9% 1, 600 000 ml @ 150 mls/hr IV . Q6H40M [facility] Rx#:[id number] Oral 460 Other: Voiding Method Toilet # Voids 1 1 Weight 88.8 kg 88.8 kg - Constitutional General appearance: cooperative, mild distress, obese - EENT Eyes: anicteric sclerae, EOMI ENT: hearing grossly normal, normal oropharynx - Neck Neck: no lymphadenopathy - Respiratory Respiratory: bilateral: diminished, rales - Cardiovascular Rhythm: regular Heart sounds: normal: S1, S2 Abnormal Heart Sounds: no systolic murmur, no diastolic murmur, no rub, no S3 Gallop, no S4 Gallop, no click, no other leg Peripheral Edema: bilateral: Trace - Gastrointestinal General gastrointestinal: no absent bowel sounds, no decreased bowel sounds, no distended, no hepatomegaly, no hyperactive bowel sounds, normal bowel sounds, no organomegaly, no rigid, no scaphoid, soft, no splenomegaly, no tenderness, no umbilical hernia, no ventral hernia - Integumentary Integumentary: pale - Neurologic Neurologic: CNII-XII intact - Musculoskeletal Musculoskeletal: generalized weakness, strength equal bilaterally - Psychiatric Psychiatric: A&O x's 3, appropriate affect, intact judgment & insight Results CBC & Chem 7: 07/04/18 06:24 07/04/18 06:24 Labs: Abnormal Lab Results - Last 24 Hours (Table) 07/03/18 07/04/18 07/04/18 Range/Units 16:40 05:40 06:24 RBC 3.44 L (3.80-5.40) m/uL Hgb 9.9 L (11.4-16.0) gm/dL Hct 31.4 L (34.0-46.0) % Sodium 136 L (137-145) mmol/L BUN 28 H (7-17) mg/dL Creatinine 1.37 H (0.52-1.04) mg/dL Glucose 111 H (74-99) mg/dL POC Glucose (mg/dL) 104 H (75-99) mg/dL Calcium 14.4 H* (8.4-10.2) mg/dL Ionized Calcium Rishi 7.4 H* (4.5-5.3) mg/dL Total Protein (6.3-8.2) g/dL Albumin (3.5-5.0) g/dL Free T3 pg/mL 2.7 L (2.8-5.3) pg/ml 07/04/18 07/04/18 07/04/18 Range/Units 06:24 11:31 16:40 RBC (3.80-5.40) m/uL Hgb (11.4-16.0) gm/dL Hct (34.0-46.0) % Sodium (137-145) mmol/L BUN 23 H (7-17) mg/dL Creatinine 1.40 H (0.52-1.04) mg/dL Glucose (74-99) mg/dL POC Glucose (mg/dL) 125 H 135 H (75-99) mg/dL Calcium 13.7 H* (8.4-10.2) mg/dL Ionized Calcium Rishi (4.5-5.3) mg/dL Total Protein 5.9 L (6.3-8.2) g/dL Albumin 2.9 L (3.5-5.0) g/dL Free T3 pg/mL (2.8-5.3) pg/ml Comments: Hip xray results reviewed Chest x-ray: report reviewed Assessment and Plan (1) Lung mass Narrative/Plan: Bone scan ordered Pending improvement of renal function for CT CAP and brain Pulmonary consult for evaluation and biopsy. Obvious concern is malignancy. Pending specimen collection and pathology Current Visit: Yes Status: Acute Priority: High Code(s): R91.8 - OTHER NONSPECIFIC ABNORMAL FINDING OF LUNG FIELD SNOMED Code(s): 294974461 (2) Hypercalcemia Narrative/Plan: Zoledronic acid given x 1, calcitonin ordered x 4 doses. IV hydration, Ca++ level daily Current Visit: Yes Status: Acute Priority: High Code(s): E83.52 - HYPERCALCEMIA SNOMED Code(s): 78324982 (3) Hip pain Narrative/Plan: Right hip pain, destructive lesion at proximal femur on xray report. Bone scan ordered. Radiation Oncology consulted already. Pain meds ordered. Meds to prevent narcotic induced constipation ordered. m Current Visit: Yes Status: Acute Priority: High Code(s): M25.559 - PAIN IN UNSPECIFIED HIP SNOMED Code(s): 65295877 Plan: GI/DVT prophylaxis Attests: I have performed H&P and developed impression and plan of pt care, discussed with dictator. I agree with dictated note, documented as a scribe.
[2018-07-04] MEDS: SYMBICORT 160-4.5 MCG INHALER INHALATION SCH (19:28)
[2018-07-04 20:40] LABS: Glucose,Whole Blood 127 mg/dL (75-99)
[2018-07-04] MEDS: MELATONIN 3 MG TABLET PO SCH (21:21)
[2018-07-04] MEDS: DOCUSATE 100 MG CAP PO SCH (21:22)
[2018-07-04] MEDS: ATORVASTATIN 10 MG TAB PO SCH (21:22)
[2018-07-05 05:30] LABS: Glucose,Whole Blood 133 mg/dL (75-99)
[2018-07-05] MEDS: PANTOPRAZOLE 40 MG TABLET PO SCH ×2 (05:30→17:35)
[2018-07-05] MEDS: INSULIN ASPART 100 UNIT/ML 1 ML 10 ML VIAL SQ SCH ×4 (05:30→21:32)
[2018-07-05] MEDS: SODIUM CHLORIDE 0.9% 1,000 ML IV SCH ×3 (05:32→17:35)
[2018-07-05] MEDS: HYDROcodone/APAP 10-325MG 1 EACH TAB PO PRN (05:32)
[2018-07-05 08:00] LABS: Calcium 11.5 mg/dL (8.4-10.2); Potassium 4.1 mmol/L (3.5-5.1)
--- NOTE | 2018-07-05 08:10 | P.CONS ---
History of Present Illness - Reason for Consult Consult date: 07/04/18 Right hip pain; Concern for metastatic lesion Requesting physician: Cayetano Louis - Chief Complaint I have leg pain - History of Present Illness Martha Castro is a pleasant 68 year old female who noted progressive dyspnea and right shoulder pain for four months. CT chest on 06/27/18 which revealed a large cavitary lesion in RUL, 7.9 x 7.7 x 7.6cm, multiple adjacent satellite nodules, extensive mediastinal adenopathy and right hilar adenopathy. Plain films visualized a destructive lesion in the right proximal femur. Martha complains of increasing fatigue, an 18lb wt. loss in 1 month, and progressive severe right hip pain since April. She was evaluated by Dr. Estrella as an outpatient. Labs were done revealing a Ca++ of 14.2. Pt was contacted at home and directed to ER. Review of Systems Constitutional: Reports anorexia, Reports chronic pain, Reports fatigue, Reports poor appetite Ears, nose, mouth and throat: Denies headache, Denies sore throat Respiratory: Reports dyspnea Musculoskeletal: Reports as per HPI, Reports limitation of motion Neurological: Denies numbness, Denies weakness Past Medical History Past Medical History: Cancer, COPD, Diabetes Mellitus, Hyperlipidemia, Hypertension Additional Past Medical History / Comment(s): MALIGNANT MELANOMA BACK-REMOVED History of Any Multi-Drug Resistant Organisms: None Reported Past Surgical History: Adenoidectomy, Joint Replacement, Tonsillectomy Additional Past Surgical History / Comment(s): AMPLATZERA ASD OCCLUDER 2002. LT GILBERT X 2. COLONOSCOPY. MELANOMA REMOVED FROM BACK. BILAT CATARACTS Past Anesthesia/Blood Transfusion Reactions: No Reported Reaction Past Psychological History: No Psychological Hx Reported Smoking Status: Current every day smoker Past Alcohol Use History: None Reported Additional Past Alcohol Use History / Comment(s): SMOKES 1/2 - 1 PPD SINCE AGE 21 Past Drug Use History: None Reported - Past Family History Sister(s) Family Medical History: Cancer Mother Family Medical History: Cancer Father Family Medical History: Cancer Daughter(s) Family Medical History: Cancer Brother(s) Family Medical History: Cancer Medications and Allergies Home Medications Medication Instructions Recorded Confirmed Type Albuterol Nebulized [Ventolin 2.5 mg INHALATION RT-BID PRN 03/23/17 07/03/18 History Nebulized] Budesonide/Formoterol Fumarate 2 puff INHALATION RT-HS 03/23/17 07/03/18 History [Symbicort 160-4.5 Mcg Inhaler] Cholecalciferol [Vitamin D3] 2,000 unit PO DAILY 03/23/17 07/03/18 History Hydrochlorothiazide 25 mg PO DAILY 03/23/17 07/03/18 History Krill Oil 500 mg PO DAILY 03/23/17 07/03/18 History Lisinopril 40 mg PO DAILY 03/23/17 07/03/18 History Simvastatin [Zocor] 20 mg PO HS 03/23/17 07/03/18 History Tiotropium [place] [Spiriva] 1 cap INHALATION RT-DAILY 03/23/17 07/03/18 History Albuterol Sulfate [Proair Hfa] 2 puff INHALATION RT-Q6H PRN 07/03/18 07/03/18 History Hydrocodone/Acetaminophen [[place] 1 tab PO Q4H PRN 07/03/18 07/03/18 History 10-325] Naproxen [Naprosyn] 500 mg PO Q12HR PRN 07/03/18 07/03/18 History amLODIPine [Norvasc] 10 mg PO HS 07/03/18 07/03/18 History sitaGLIPtin PHOS/metFORMIN HCL 1 tab PO BID 07/03/18 07/03/18 History [Janumet 50-1,000 mg Tablet] Allergies Allergy/AdvReac Type Severity Reaction Status Date / Time No Known Allergies Allergy Verified 07/03/18 16:50 Physical Exam Vitals: Vital Signs Temp Pulse Pulse Resp BP BP Pulse Ox 07/05/18 07:27 98.2 F 76 16 132/67 92 L 07/05/18 04:00 74 18 118/58 92 L 07/05/18 00:00 60 17 123/68 93 L 07/04/18 20:00 80 17 107/57 96 07/04/18 16:00 97.6 F 74 16 122/69 95 07/04/18 12:00 97.1 F L 71 16 127/73 94 L 07/04/18 11:12 72 07/04/18 11:02 72 07/04/18 08:00 97.0 F L 68 16 128/66 91 L Intake and Output 1207/05/18 07/05/18 22:59 06:59 14:59 Intake Total 1440 750 150 Balance 1440 750 150 Intake: Intake, IV Titration 1200 750 150 Amount Sodium Chloride 0.9% 1, 1200 750 150 000 ml @ 150 mls/hr IV . Q6H40M [facility] Rx#:[id number] Oral 240 Other: Voiding Method Toilet Toilet # Voids 3 1 Weight 92.1 kg - Constitutional General appearance: average body habitus - EENT Eyes: PERRLA - Neck Neck: normal ROM - Respiratory Respiratory: right: diminished, left: CTA - Cardiovascular Rhythm: regular - Neurologic Neurologic: CNII-XII intact - Musculoskeletal Tenderness over right proximal femur - Psychiatric Psychiatric: A&O x's 3, appropriate affect, intact judgment & insight Results CBC & Chem 7: 07/04/18 06:24 07/04/18 06:24 Labs: Abnormal Lab Results - Last 24 Hours (Table) 07/04/18 07/04/18 07/04/18 Range/Units 11:31 16:40 20:38 POC Glucose (mg/dL) 125 H 135 H 127 H (75-99) mg/dL 07/05/18 Range/Units 05:28 POC Glucose (mg/dL) 133 H (75-99) mg/dL Assessment and Plan Assessment: Martha Castro is a pleasant 68 year old female with imaging consistent for lung cancer with concerns for possible metastatic disease to the right femur Plan: 1) Right upper lobe cavitating mass with extensive mediastinal adenopathy- Patient scheduled for possible bronchoscopy on 07/05/18 for tissue. Medical oncology ordering staging work up. 2) Right subtrochanteric femur lesion- Patient having difficulty weight bearing. Orthopaedics consulted to determine stability. May need biopsy if stabilization not necessary. Will certainly require palliative XRT if consistent with malignancy. 3) Acute hypercalcemia secondary to metastatic carcinoma. Improving. Managed by primary medical team. 4) Pain. Controlled with [place] and dilaudid
[2018-07-05] MEDS: DOCUSATE 100 MG CAP PO SCH ×2 (08:13→20:28)
[2018-07-05] MEDS: CHOLECALCIFEROL 1,000 UNIT TAB PO SCH (08:13)
[2018-07-05] MEDS: HYDROmorphone 1 MG/ML 1 ML SYRINGE IVP PRN ×3 (08:14→20:27)
[2018-07-05] MEDS: IPRATROPIUM-ALBUTEROL 3 ML NEB INHALATION SCH ×4 (08:45→20:27)
[2018-07-05] MEDS: CALCITONIN INJ 200 UNIT/ML (MDV) VIAL SQ SCH ×2 (10:15→20:29)
[2018-07-05 12:30] LABS: Glucose,Whole Blood 113 mg/dL (75-99)
--- NOTE | 2018-07-05 12:53 | XR ---
EXAMINATION TYPE: XR Hip Complete RT DATE OF EXAM: 07/05/2018 COMPARISON: 07/03/2018 HISTORY: Pain TECHNIQUE: 2 view right hip FINDINGS: Femoral head articulates with the acetabulum. Joint space narrowing is present. Some mild f emoral head spurring is noted. No acute fractures evident. There is loss of the lateral cortex of the proximal metadiaphysis. A lytic lesion should be considere d. Additional workup is recommended. IMPRESSION: 1. Persistence of a lytic lesion within the proximal right metadiaphyseal femur. 2. Mild osteoarthritic degenerative change right hip.
[2018-07-05] MEDS ORDERED: PROPOFOL 10 MG/ML 20 ML VIAL IV ONE (14:04)
[2018-07-05] MEDS ORDERED: MIDAZOLAM 2 MG/2 ML VIAL ONE (14:04)
[2018-07-05] MEDS ORDERED: LIDOCAINE 1% INJ 10MG/ML (20 ML MDV) ONE (14:04)
[2018-07-05] MEDS ORDERED: KETAMINE 10 MG/ML 20 ML VIAL ONE (14:04)
--- NOTE | 2018-07-05 14:17 | P.CNOR ---
History of Present Illness - [facility] Consult date: 07/05/18 Consult reason: other (Metastatic lesion right proximal femur.) History of present illness: This is a 68-year-old female with no prior known history of cancer. She presented with shoulder pain to her primary care physician. She was seen by cardiology for workup. During the workup it was noted that she had some abnormalities on chest x-ray. Subsequent chest CT revealed lesions in the right upper lobe with mediastinal masses and hilar lymphadenopathy. She also complained of right hip pain. X-rays revealed a fairly large pathologic lesion to the right proximal femur with cortical erosion. She is admitted to [facility] for further treatment. We are consulted for orthopedic evaluation of her right femoral lesion. She states that she has pain in the right hip, particularly with weightbearing. She reports no recent fall or trauma. A bone scan was performed which was read as essentially negative. In doing the bone scan, I do see some increased uptake to the right proximal femur. The patient is scheduled for a bronchoscopy today. Past Medical History Past Medical History: Cancer, COPD, Diabetes Mellitus, Hyperlipidemia, Hypertension Additional Past Medical History / Comment(s): MALIGNANT MELANOMA BACK-REMOVED History of Any Multi-Drug Resistant Organisms: None Reported Past Surgical History: Adenoidectomy, Joint Replacement, Tonsillectomy Additional Past Surgical History / Comment(s): AMPLATZERA ASD OCCLUDER 2002. LT GILBERT X 2. COLONOSCOPY. MELANOMA REMOVED FROM BACK. BILAT CATARACTS Past Anesthesia/Blood Transfusion Reactions: No Reported Reaction Past Psychological History: No Psychological Hx Reported Smoking Status: Current every day smoker Past Alcohol Use History: None Reported Additional Past Alcohol Use History / Comment(s): SMOKES 1/2 - 1 PPD SINCE AGE 21 Past Drug Use History: None Reported - Past Family History Sister(s) Family Medical History: Cancer Mother Family Medical History: Cancer Father Family Medical History: Cancer Daughter(s) Family Medical History: Cancer Brother(s) Family Medical History: Cancer Medications and Allergies Home Medications Medication Instructions Recorded Confirmed Type Albuterol Nebulized [Ventolin 2.5 mg INHALATION RT-BID PRN 03/23/17 07/03/18 History Nebulized] Budesonide/Formoterol Fumarate 2 puff INHALATION RT-HS 03/23/17 07/03/18 History [Symbicort 160-4.5 Mcg Inhaler] Cholecalciferol [Vitamin D3] 2,000 unit PO DAILY 03/23/17 07/03/18 History Hydrochlorothiazide 25 mg PO DAILY 03/23/17 07/03/18 History Krill Oil 500 mg PO DAILY 03/23/17 07/03/18 History Lisinopril 40 mg PO DAILY 03/23/17 07/03/18 History Simvastatin [Zocor] 20 mg PO HS 03/23/17 07/03/18 History Tiotropium [place] [Spiriva] 1 cap INHALATION RT-DAILY 03/23/17 07/03/18 History Albuterol Sulfate [Proair Hfa] 2 puff INHALATION RT-Q6H PRN 07/03/18 07/03/18 History Hydrocodone/Acetaminophen [[place] 1 tab PO Q4H PRN 07/03/18 07/03/18 History 10-325] Naproxen [Naprosyn] 500 mg PO Q12HR PRN 07/03/18 07/03/18 History amLODIPine [Norvasc] 10 mg PO HS 07/03/18 07/03/18 History sitaGLIPtin PHOS/metFORMIN HCL 1 tab PO BID 07/03/18 07/03/18 History [Janumet 50-1,000 mg Tablet] Allergies Allergy/AdvReac Type Severity Reaction Status Date / Time No Known Allergies Allergy Verified 07/03/18 16:50 Physical Examination This is a pleasant 68-year-old female in no acute distress. She is alert and oriented 3. Friends are present at bedside. Exam of the head neck reveal no obvious deformity. She has fairly good cervical spine motion without difficulty or pain. No pain with palpation about the cervical spine or paraspinal musculature. Exam of the upper extremities reveals no obvious deformity. She has fairly good shoulder, elbow, wrist and finger motion bilaterally. Neurovascular status to the upper extremities is intact. Exam of the lower extremities reveals no obvious deformity or shortening. There is mild hip pain with internal and external rotation. Straight leg raise is negative. She has full foot and ankle motion without difficulty or pain. Neurovascular status to the lower extremities is intact. Results X-rays of the pelvis and right femur reveal a lytic lesion about the proximal femur with lateral cortical wall erosion. Whole-body bone scan reveals increased uptake to the right proximal femur. No other areas of unusual uptake noted. - Labs Labs: Abnormal Lab Results - Last 24 Hours (Table) 07/04/18 07/04/18 07/05/18 Range/Units 16:40 20:38 05:28 Chloride (98-107) mmol/L Creatinine (0.52-1.04) mg/dL Glucose (74-99) mg/dL POC Glucose (mg/dL) 135 H 127 H 133 H (75-99) mg/dL Calcium (8.4-10.2) mg/dL 07/05/18 07/05/18 Range/Units 07:03 12:27 Chloride 109 H (98-107) mmol/L Creatinine 1.23 H (0.52-1.04) mg/dL Glucose 112 H (74-99) mg/dL POC Glucose (mg/dL) 113 H (75-99) mg/dL Calcium 11.5 H (8.4-10.2) mg/dL H & H 07/03/18 07/04/18 Range/Units 16:40 06:24 Hgb 10.6 L 9.9 L (11.4-16.0) gm/dL Hct 33.2 L 31.4 L (34.0-46.0) % Coagulation 07/03/18 Range/Units 16:40 INR 0.9 (<1.2) Result Diagrams: 07/04/18 06:24 07/05/18 07:03 Assessment and Plan (1) Osteolytic lesion due to metastasis Current Visit: Yes Status: Acute Code(s): C79.51 - SECONDARY MALIGNANT NEOPLASM OF BONE SNOMED Code(s): 03479213 (2) Lung mass Current Visit: Yes Status: Acute Priority: High Code(s): R91.8 - OTHER NONSPECIFIC ABNORMAL FINDING OF LUNG FIELD SNOMED Code(s): 454712271 (3) Lytic bone lesion of right femur Current Visit: Yes Status: Acute Code(s): M89.9 - DISORDER OF BONE, UNSPECIFIED SNOMED Code(s): 44104215 Plan: The clinical and x-ray findings are discussed with the patient. She will be having a bronchoscopy today. It is recommended she have prophylactic intramedullary nailing of the right hip and femur. The procedures been discussed in detail including the possible risks and outcomes of surgery. She is to remain non-weight bearing to toe-touch weightbearing to the right lower extremity with walker. We have tentatively scheduled surgery for July 08. We anticipate the possible need for inpatient rehab postoperatively.
--- NOTE | 2018-07-05 14:31 | P.PN ---
Subjective Patient is admitted for hypercalcemia which is improving at this point of time patient received the solids chronic acid yesterday. Patient is on IV fluids which will be continued creatinine improved to 1.4. Patient is having a lot of hip pain patient has a lesion in the hip area for which patient the will go for prophylactic Surgical procedure for her right hip patient is to have osteolytic lesion due to metastasis primary being lung cancer patient is undergoing bronchoscopy and biopsy today. A she is comparing of severe pain in the hip area but unable to tolerate Dilaudid very well. Patient will be started on tramadol can you with Tylenol. We cannot use morphine because of her poor renal function bone scan was done yesterday which did not show any other significant bony lesions. Objective - Vital Signs Vital signs: Vital Signs Temp 98.0 F 07/05/18 12:00 Pulse 66 07/05/18 12:00 Resp 16 07/05/18 12:00 BP 122/67 07/05/18 12:00 Pulse Ox 94 L 07/05/18 12:00 Intake & Output 07/04/18 07/05/18 07/05/18 18:59 06:59 18:59 Intake Total 2500 750 150 Balance 2500 750 150 Weight 88.8 kg 92.1 kg Intake: Intake, IV Titration 1800 750 150 Amount Sodium Chloride 0.9% 1, 1800 750 150 000 ml @ 150 mls/hr IV . Q6H40M [facility] Rx#:[id number] Oral 700 Other: Voiding Method Toilet # Voids 3 1 - Exam PHYSICAL EXAMINATION: GENERAL: The patient is alert and oriented x3, not in any acute distress. Well developed, well nourished. HEENT: Pupils are round and equally reacting to light. EOMI. No scleral icterus. No conjunctival pallor. Normocephalic, atraumatic. No pharyngeal erythema. No thyromegaly. CARDIOVASCULAR: S1 and S2 present. No murmurs, rubs, or gallops. PULMONARY: Chest is clear to auscultation, no wheezing or crackles. ABDOMEN: Soft, nontender, nondistended, normoactive bowel sounds. No palpable organomegaly. MUSCULOSKELETAL: No joint swelling or deformity. EXTREMITIES: No cyanosis, clubbing, or pedal edema. NEUROLOGICAL: Gross neurological examination did not reveal any focal deficits. SKIN: No rashes. - Labs CBC & Chem 7: 07/04/18 06:24 07/05/18 07:03 Labs: Abnormal Lab Results - Last 24 Hours (Table) 07/04/18 07/04/18 07/05/18 Range/Units 16:40 20:38 05:28 Chloride (98-107) mmol/L Creatinine (0.52-1.04) mg/dL Glucose (74-99) mg/dL POC Glucose (mg/dL) 135 H 127 H 133 H (75-99) mg/dL Calcium (8.4-10.2) mg/dL 07/05/18 07/05/18 Range/Units 07:03 12:27 Chloride 109 H (98-107) mmol/L Creatinine 1.23 H (0.52-1.04) mg/dL Glucose 112 H (74-99) mg/dL POC Glucose (mg/dL) 113 H (75-99) mg/dL Calcium 11.5 H (8.4-10.2) mg/dL Assessment and Plan Plan: - hypercalcemia: Secondary to malignancy: Continue with IV fluids, zoledronic acid and calcitonin. Bone scan did not show any other lesions. Serum calcium improved to 11 IV fluids at this time. -Osteolytic right hip lesions: Arthritic surgery evaluated the patient. -Possible Lung cancer type of lung cancer is unknown probably metastatic stage IV, is undergoing biopsy today -Hypertension -Hyperlipidemia -COPD without any acute exacerbation - nicotine dependence For above-mentioned chronic pelvic medical problems patient will be resumed and continued on appropriate home medications
[2018-07-05] MEDS ORDERED: SODIUM CHLORIDE 0.9% 1,000 ML IV ONE (14:33)
--- NOTE | 2018-07-05 15:39 | P.PN ---
Subjective Progress Note Date: 07/05/18 Principal diagnosis: Right upper lobe cavitating mass with thick walled characteristics and nodular borders in addition to the right perihilar mediastinal lymphadenopathy. A 68-year-old female patient, a chronic smoker with known history of COPD diabetes hypertension hyperlipidemia, presented to the hospital because of a worsening right hip pain. This pain started approximately 2 weeks ago to the point where the patient was unable to put any weight on her right hip. She was initially seen by cardiology. As part of her workup, she had a chest x-ray that abnormal and following that she underwent a CAT scan of the chest that showed a large cavitating thick-walled lesion in the right upper lobe in addition to right hilar and mediastinal mass and extensive mediastinal lymphadenopathy consistent with primary bronchogenic cancer, likely of a squamous cell type due to the extensive cavitation seen in the right upper lobe. The CAT scan also showed pulmonary nodules on the left that were subcentimeter. These were however consistent with metastatic disease knowing that the patient has several metastatic right sided pulmonary lesions also. X- ray of the hip was also completed and the patient had a large destructive lesion in the proximal femur suggestive of malignancy/metastatic involvement. The patient came into the hospital because of the right hip pain and shortness of breath and generalized weakness. Electrodes were done and the patient's creatinine was at 1.4 and a calcium level at a time of admission was 14.4. The patient was given IV fluids. The patient was given Zomig and they're monitoring the calcium level for now. She has chronic exertional dyspnea. She has a chronic congested cough. No hemoptysis. No pleurisy. No previous TB exposure. She has [id number] smoking history. The patient will be seen by hematology oncology. Altered mentation. No change in the voice characteristics. The patient is seen again today 07/05/2018 in follow-up on the selective care unit. She is currently awake and alert in no acute distress. She is breathing a bit easier today as compared to yesterday. He is maintaining good O2 saturations in the 90s on room air. She's been afebrile. Hemodynamically stable. Whole-body bone scan revealed no areas of suspicion suggestive of metastasis. X-ray of the right hip revealed a persistence of a lytic lesion within the proximal right mid diaphyseal femur. Orthopedics is recommending a prophylactic intramedullary nailing of the right hip and femur. This is tentatively scheduled for July 08. She is scheduled for bronchoscopy with FNA and core biopsy of the right mediastinal mass today of the with Dr. Louis. Objective - Vital Signs Vital signs: Vital Signs Temp 98.0 F 07/05/18 12:00 Pulse 66 07/05/18 12:00 Resp 16 07/05/18 12:00 BP 122/67 07/05/18 12:00 Pulse Ox 94 L 07/05/18 12:00 Intake & Output 07/04/18 07/05/18 07/05/18 18:59 06:59 18:59 Intake Total 2500 750 900 Balance 2500 750 900 Weight 88.8 kg 92.1 kg Intake: IV 750 Intake, IV Titration 1800 750 150 Amount Sodium Chloride 0.9% 1, 1800 750 150 000 ml @ 150 mls/hr IV . Q6H40M [facility] Rx#:[id number] Oral 700 Other: Voiding Method Toilet # Voids 3 1 - Exam Gen. appearance, comfortable no acute distress. On room air. Head exam was generally normal. There was no scleral icterus or corneal arcus. Mucous membranes were moist. Neck was supple and without jugular venous distension, thyromegaly, or carotid bruits. Carotids were easily palpable bilaterally. There was no adenopathy. Lungs sounds are diminished bilaterally along with some few scattered expiratory wheezes throughout the lung palacios. Cardiac exam revealed the PMI to be normally situated and sized. The rhythm was regular and no extrasystoles were noted during several minutes of auscultation. The first and second heart sounds were normal and physiologic splitting of the second heart sound was noted. There were no murmurs, rubs, clicks, or gallops. Abdominal exam revealed normal bowel sounds. The abdomen was soft, non-tender, and without masses, organomegaly, or appreciable enlargement of the abdominal aorta. Examination of the extremities revealed easily palpable radial, femoral and pedal pulses. There was no cyanosis, clubbing or edema. Neurologically the patient is awake and alert and there is no focal neurological deficit. Gait is off as the patient is having right hip pain and she is unable to bear weight on the right hip. Examination of the skin revealed no evidence of significant rashes, suspicious appearing nevi or other concerning lesions. There is a scar in the upper back posteriorly related to a previous resection of a malignant melanoma. - Labs CBC & Chem 7: 07/04/18 06:24 07/05/18 07:03 Labs: Abnormal Lab Results - Last 24 Hours (Table) 07/04/18 07/04/18 07/05/18 Range/Units 16:40 20:38 05:28 Chloride (98-107) mmol/L Creatinine (0.52-1.04) mg/dL Glucose (74-99) mg/dL POC Glucose (mg/dL) 135 H 127 H 133 H (75-99) mg/dL Calcium (8.4-10.2) mg/dL 07/05/18 07/05/18 Range/Units 07:03 12:27 Chloride 109 H (98-107) mmol/L Creatinine 1.23 H (0.52-1.04) mg/dL Glucose 112 H (74-99) mg/dL POC Glucose (mg/dL) 113 H (75-99) mg/dL Calcium 11.5 H (8.4-10.2) mg/dL Assessment and Plan Assessment: Assessment: 1 right upper lobe cavitating mass with thick walled characteristics and nodular borders in addition to right hilar and mediastinal lymphadenopathy and a 7.5 cm soft tissue mass with extensive mediastinal lymphadenopathy consistent with metastatic lung carcinoma, highly suspect 7 cell carcinoma based on the extensive cavitation seen he had noted the patient also has pulmonary nodules bilaterally more so on the right. 2 right hip metastatic involvement with secondary pain and inability to walk and weightbearing 3 acute hypercalcemia secondary to metastatic carcinoma, this is secondary to skeletal involvement and skeletal metastases. Improved to 11.5 today. 4 COPD 5 chronic smoker 6 remote history of melanoma resected 7 retention 8 hyperlipidemia 9 smoker Plan: The patient was seen and evaluated by Dr. Louis. The plan is for bronchoscopy with biopsies today. Orthopedics is planning for prophylactic intramedullary nailing of the right hip and femur on 07/08/2018. In the interim , we'll continue with her current medication. Her hypercalcemia has improved. We will continue to follow make further recommendations based on her clinical status. I, the cosigning physician, performed a history & physical examination of the patient. Lungs sounds with few scattered rhonchi. Maintaining good O2 saturations in the 90s on room air. I discussed the assessment and plan of care with my nurse practitioner, Alla Lazar. I attest to the above note as dictated by her.
[2018-07-05 17:10] LABS: Glucose,Whole Blood 135 mg/dL (75-99)
--- NOTE | 2018-07-05 17:21 | CONS ---
CONSULTATION REASON FOR CONSULTATION: Renal failure. HISTORY OF PRESENT ILLNESS: Patient is a 68-year-old female who was admitted to the hospital with weakness, not feeling well. She was found to have a serum calcium of 14.5. Patient denies any prior history of hypercalcemia. She denies any prior history of kidney disease as well. Serum creatinine was 1.37 and 1.4 yesterday. Today it is down to 1.2. Patient is maintained on normal saline. Her calcium is down to 11.5 mg/dL. Patient denies use of any calcium supplements prior to admission. I do not see a vitamin D or PTH level. Patient did have a CT scan which showed evidence of a large cavitary lesion in the right upper lobe with multiple adjacent satellite nodules and extensive mediastinal lymphadenopathy and hilar adenopathy. This was being worked up as outpatient and patient was sent into the hospital because her calcium was noted to be elevated as outpatient. Patient received zoledronate on admission. PAST MEDICAL HISTORY: 1. Type 2 diabetes. 2. COPD. 3. Hyperlipidemia. 4. Hypertension. 5. History of malignant melanoma on the back. PAST SURGICAL HISTORY: 1. Adenoidectomy. 2. Joint replacement. 3. Tonsillectomy. 4. Cataract surgery. SOCIAL HISTORY: Positive for smoking. No history of drug abuse or alcohol abuse. MEDICATIONS: Medications at home included: 1. Hydrochlorothiazide. 2. Lisinopril. 3. Albuterol. 4. Zocor. 5. Norvasc. 6. Naprosyn. 7. Janumet. ALLERGIES: NONE. PHYSICAL EXAMINATION: Patient is currently comfortable, awake, alert, oriented x3. She is not in any acute distress. Blood pressure 122/67, heart rate 66 per minute. Patient is afebrile. EXAMINATION OF THE HEART: S1, S2. EXAMINATION OF LUNGS: Bilateral breath sounds are heard. ABDOMEN: Soft, non-tender. Examination of lower extremities shows no significant edema. WICK TENDER exam is grossly intact. Labs show sodium 137, potassium 4.1, chloride 106, BUN 23, serum creatinine 1.4, calcium 13.7, hemoglobin 9.9 g/dL. ASSESSMENT: 1. Acute kidney injury associated with hypercalcemia, currently maintained on IV fluids. We will repeat labs in a.m. Renal function has improved with improvement in the calcium. 2. Hypercalcemia, most likely associated with underlying malignancy. I will check a PTH level to document adequate parathyroid suppression. Patient has already received zoledronate. We will continue with the normal saline for now. Patient is advised to avoid use of any calcium supplements. Repeat labs in a.m. 3. Lytic lesion in the right femur with mediastinal lymphadenopathy and right lung cavitary tree lesion, being followed by Oncology and Orthopedics. Pathology on the biopsy is currently pending. Thank you for this consultation. We will continue to follow the patient with you during her hospitalization. MMODL / IJN: [id number] /
--- NOTE | 2018-07-05 17:45 | P.PN ---
Subjective Progress Note Date: 07/05/18 This is a 68-year-old female who was recently seen in the office for symptoms of shortness of breath and pedal swelling. Chest x-ray subsequently showed evidence of cavitating lesion in the right lung. Patient is also found to have hypercalcemia. She is also diagnosed to have metastatic CA to the hip bone. Patient had a bronchoscopy today, biopsy. There is a plan for possible radiation therapy for the hip home. On the echocardiogram done in the office, there was a suspicious mass in the right atrium. We're going to discuss with tourist information assistant. If it is necessary to establish the nature of the mass in the right atrium, we may consider SAMUEL examination. If he doesn't make any difference for therapeutic approach, we may not proceed with SAMUEL. Patient is feeling slightly better. Doesn't appear to be acute distress. We'll continue current medical therapy Objective - Vital Signs Vital signs: Vital Signs Temp 97.8 F 07/05/18 15:40 Pulse 64 07/05/18 15:40 Resp 16 07/05/18 15:40 BP 118/58 07/05/18 15:40 Pulse Ox 99 07/05/18 15:40 Intake & Output 07/04/18 07/05/18 07/05/18 18:59 06:59 18:59 Intake Total 2500 750 2100 Balance 2500 750 2100 Weight 88.8 kg 92.1 kg Intake: IV 750 Intake, IV Titration 8516 802 6495 Amount Sodium Chloride 0.9% 1, 0808 173 1918 000 ml @ 150 mls/hr IV . Q6H40M [facility] Rx#:[id number] Oral 700 Other: Voiding Method Toilet # Voids 3 1 4 - Exam GENERAL EXAM: Patient is alert and oriented and doesn't appear to be in any acute distress HEENT: Normocephalic. Normal reaction of pupils, equal size, normal range of extraocular motion. No erythema or exudates in the throat. NECK: No masses, no nuchal rigidity. CHEST: No chest wall deformity. LUNGS: Equal air entry with no crackles or wheeze. HEART: S1 and S2 normal with no audible mumurs or gallops. Regular rhythm, femorals equal on both sides.. ABDOMEN: No hepatosplenomegaly, normal bowel sounds, no guarding or rigidity. SKIN: No rashes CENTRAL NERVOUS SYSTEM: No focal deficits. EXTREMITIES: Bilateral edema - Labs CBC & Chem 7: 07/04/18 06:24 07/05/18 07:03 Labs: Abnormal Lab Results - Last 24 Hours (Table) 07/04/18 07/05/18 07/05/18 Range/Units 20:38 05:28 07:03 Chloride 109 H (98-107) mmol/L Creatinine 1.23 H (0.52-1.04) mg/dL Glucose 112 H (74-99) mg/dL POC Glucose (mg/dL) 127 H 133 H (75-99) mg/dL Calcium 11.5 H (8.4-10.2) mg/dL 07/05/18 07/05/18 Range/Units 12:27 16:56 Chloride (98-107) mmol/L Creatinine (0.52-1.04) mg/dL Glucose (74-99) mg/dL POC Glucose (mg/dL) 113 H 135 H (75-99) mg/dL Calcium (8.4-10.2) mg/dL Assessment and Plan (1) Status post device closure of ASD Current Visit: Yes Status: Acute Code(s): Z87.74 - PERSONAL HISTORY OF CONGENITAL MALFORM OF HEART AND CIRC SYS SNOMED Code(s): 364795090 (2) Hip pain Current Visit: Yes Status: Acute Priority: High Code(s): M25.559 - PAIN IN UNSPECIFIED HIP SNOMED Code(s): 18292327 (3) Hypercalcemia Current Visit: Yes Status: Acute Priority: High Code(s): E83.52 - HYPERCALCEMIA SNOMED Code(s): 61180463 (4) Lung mass Current Visit: Yes Status: Acute Priority: High Code(s): R91.8 - OTHER NONSPECIFIC ABNORMAL FINDING OF LUNG FIELD SNOMED Code(s): 030925644 (5) Lytic bone lesion of right femur Current Visit: Yes Status: Acute Code(s): M89.9 - DISORDER OF BONE, UNSPECIFIED SNOMED Code(s): 59735940 Plan: Continue current medical therapy. Suspicious mass in the right atrium. We will consider SAMUEL examination, if it makes any difference in therapeutic approach.
--- NOTE | 2018-07-05 18:34 | P.PCN ---
Date of Procedure: 07/05/18 Preoperative Diagnosis: Right upper lobe mass, mediastinal lymphadenopathy/mass Postoperative Diagnosis: Same Procedure(s) Performed: Flexible bronchoscopy, transbronchial needle aspirate of the right paratracheal mass Anesthesia: MAC Surgeon: Cayetano Louis Estimated Blood Loss (ml): 0 Pathology: other Condition: stable Disposition: floor Operative Findings: This procedure was done and the endoscopy suite with anesthetic agents being administered by anesthesia the bedside. After achieving adequate sedation flexible bronchoscope was inserted to the right nostril was advanced upper airway. Examination of the posterior pharynx, larynx epiglottis and vocal cords was done and there was significant amount of adipose tissue circumferentially and the pharyngeal and laryngeal wall along with dynamic obstruction consistent with [place]. Epiglottis was identified. Arytenoids vallecula and the vocal cords were visualized and the structures were within normal limits. A total of 2 mL of 1% lidocaine was applied to the vocal cords and following that the bronchoscope was advanced upper trachea and examination second bronchial tree was done. The trachea was patent yet there was dynamic obstruction consistent with tracheal bronchomalacia. There was some looseness for secretions scattered throughout the tracheal wall occupying the posterior membranous surface. Therapy care was suctioning was done and the rest or secretions were all suctioned out without any major difficulties. The airway inspection was completed. The trachea right upper lobe bronchus regular lobe bronchus right lower lobe bronchus and then the left upper and left lower lobe bronchus and the left mainstem bronchus appropriate and within normal limits. The bronchoscope was then moved to the distal trachea and transbronchial needle aspirate of the right paratracheal mass was done. I utilized a 19-gauge cytology and 21-gauge histology done. A total of 4 passes were taken and adequacy of the samples was confirmed by pathology the bedside. No bleeding was encountered. Patient to return procedure well without any complications. Bronchoscope was removed and the patient was transferred recovery in stable condition.
[2018-07-05] MEDS: SYMBICORT 160-4.5 MCG INHALER INHALATION SCH (20:27)
[2018-07-05] MEDS: MELATONIN 3 MG TABLET PO SCH (20:28)
[2018-07-05] MEDS: ATORVASTATIN 10 MG TAB PO SCH (20:28)
[2018-07-05 21:22] LABS: Glucose,Whole Blood 112 mg/dL (75-99)
[2018-07-05] MEDS: traMADol 50 MG TAB PO PRN (21:35)
[2018-07-06] MEDS: SODIUM CHLORIDE 0.9% 1,000 ML IV SCH ×4 (01:28→19:58)
[2018-07-06] MEDS: HYDROmorphone 1 MG/ML 1 ML SYRINGE IVP PRN ×5 (01:47→23:05)
[2018-07-06] MEDS: traMADol 50 MG TAB PO PRN ×3 (04:09→18:58)
[2018-07-06 06:36] LABS: Glucose,Whole Blood 127 mg/dL (75-99)
[2018-07-06] MEDS: INSULIN ASPART 100 UNIT/ML 1 ML 10 ML VIAL SQ SCH ×4 (06:58→21:51)
[2018-07-06] MEDS: IPRATROPIUM-ALBUTEROL 3 ML NEB INHALATION SCH ×4 (07:23→19:39)
[2018-07-06] MEDS: SYMBICORT 160-4.5 MCG INHALER INHALATION SCH ×2 (07:24→19:39)
[2018-07-06] MEDS: HYDROcodone/APAP 10-325MG 1 EACH TAB PO PRN ×3 (08:23→19:57)
[2018-07-06] MEDS: DOCUSATE 100 MG CAP PO SCH ×2 (08:24→19:57)
[2018-07-06] MEDS: CHOLECALCIFEROL 1,000 UNIT TAB PO SCH (08:24)
[2018-07-06] MEDS: PANTOPRAZOLE 40 MG TABLET PO SCH ×2 (08:24→17:59)
--- NOTE | 2018-07-06 10:43 | P.PN ---
Subjective Patient is seen in follow-up for acute kidney injury and hypercalcemia. Calcium level was down to 11.5 and creatinine was down to 1.23 as of yesterday. Patient's currently sitting up in chair. Oral intake is fair. No vomiting or diarrhea. Admits to good urine output. She is maintained on normal saline at 1 50 mL an hour. Vital signs are stable. General: The patient appeared well nourished and normally developed. HEENT: Head exam is unremarkable. Neck is without jugular venous distension. LUNGS: Lungs are clear to auscultation and percussion. Breath sounds decreased. HEART: Rate and Rhythm are regular. First and second heart sounds normal. No murmurs, rubs or gallops. ABDOMEN: Abdominal exam reveals normal bowel sounds. Non-tender and non- distended. No evidence of peritonitis. EXTREMITITES: Trace edema. Objective - Vital Signs Vital signs: Vital Signs Temp 97.5 F L 07/06/18 08:20 Pulse 73 07/06/18 08:20 Resp 16 07/06/18 08:20 BP 127/76 07/06/18 08:20 Pulse Ox 94 L 07/06/18 08:20 Intake & Output 07/05/18 07/06/18 07/06/18 18:59 06:59 18:59 Intake Total 2340 1500 Balance 2340 1500 Weight 93.4 kg Intake: IV 750 Intake, IV Titration 1350 1500 Amount Sodium Chloride 0.9% 1, 1350 1500 000 ml @ 150 mls/hr IV . Q6H40M [facility] Rx#:[id number] Oral 240 Other: # Voids 4 1 1 - Labs CBC & Chem 7: 07/04/18 06:24 07/05/18 07:03 Labs: Abnormal Lab Results - Last 24 Hours (Table) 07/05/18 07/05/18 07/05/18 Range/Units 12:27 16:56 21:20 POC Glucose (mg/dL) 113 H 135 H 112 H (75-99) mg/dL 07/06/18 Range/Units 06:32 POC Glucose (mg/dL) 127 H (75-99) mg/dL Assessment and Plan Plan: Assessment: 1. Nonoliguric acute kidney injury secondary to hypercalcemia-induced ATN. Creatinine around 1.23 as of yesterday. 2. Hypercalcemia secondary to underlying malignancy most likely. Patient is status post calcitonin as well as zoledronic acid. Improving. 3. Right lung cavitary treated lesion as well as right femur lytic lesion being followed by oncology and orthopedics. Plan: I will decrease the rate of normal saline to 100 mL an hour. Follow-up PTH. Encourage oral intake. Repeat electrolytes in the morning.
[2018-07-06 12:02] LABS: Glucose,Whole Blood 110 mg/dL (75-99)
--- NOTE | 2018-07-06 12:32 | P.PN ---
Subjective Patient is admitted for hypercalcemia which is improving at this point of time patient received the solids chronic acid yesterday. Patient is on IV fluids which will be continued creatinine improved to 1.4. Patient is having a lot of hip pain patient has a lesion in the hip area for which patient the will go for prophylactic Surgical procedure for her right hip patient is to have osteolytic lesion due to metastasis primary being lung cancer patient is undergoing bronchoscopy and biopsy today. A she is comparing of severe pain in the hip area but unable to tolerate Dilaudid very well. Patient will be started on tramadol can you with Tylenol. We cannot use morphine because of her poor renal function bone scan was done yesterday which did not show any other significant bony lesions. 07/06/2018 Patient's hypercalcemia improved patient is still having pain in the right leg and patient will undergo intramedullary nailing tomorrow patient had a biopsy of lung mass yesterday. And discussed the patient regarding surgical procedure for her. Had serum calcium and serum creatinine improved Hip. Constitutional: Denied any fatigue denied any fever. Cardio vascular: denied any chest pain, palpitations Gastrointestinal denied any nausea vomiting Pulmonary: Denied any shortness of breath cough Neurologic denied any new focal deficits All inpatient medications were reviewed and appropriate changes in these medications as dictated in the interval history and assessment and plan. Objective - Vital Signs Vital signs: Vital Signs Temp 97.5 F L 07/06/18 08:20 Pulse 72 07/06/18 11:28 Resp 16 07/06/18 08:20 BP 127/76 07/06/18 08:20 Pulse Ox 94 L 07/06/18 08:20 Intake & Output 07/05/18 07/06/18 07/06/18 18:59 06:59 18:59 Intake Total 2340 1500 190 Balance 2340 1500 190 Weight 93.4 kg Intake: IV 750 Intake, IV Titration 1350 1500 Amount Sodium Chloride 0.9% 1, 1350 1500 000 ml @ 150 mls/hr IV . Q6H40M [facility] Rx#:[id number] Oral 240 190 Other: # Voids 4 1 1 - Exam PHYSICAL EXAMINATION: GENERAL: The patient is alert and oriented x3, not in any acute distress. Well developed, well nourished. HEENT: Pupils are round and equally reacting to light. EOMI. No scleral icterus. No conjunctival pallor. Normocephalic, atraumatic. No pharyngeal erythema. No thyromegaly. CARDIOVASCULAR: S1 and S2 present. No murmurs, rubs, or gallops. PULMONARY: Minimal expiratory wheezing on exam ABDOMEN: Soft, nontender, nondistended, normoactive bowel sounds. No palpable organomegaly. MUSCULOSKELETAL: No joint swelling or deformity. EXTREMITIES: No cyanosis, clubbing, or pedal edema. NEUROLOGICAL: Gross neurological examination did not reveal any focal deficits. SKIN: No rashes. - Labs CBC & Chem 7: 07/04/18 06:24 07/05/18 07:03 Labs: Abnormal Lab Results - Last 24 Hours (Table) 07/05/18 07/05/18 07/05/18 Range/Units 12:27 16:56 21:20 POC Glucose (mg/dL) 113 H 135 H 112 H (75-99) mg/dL 07/06/18 07/06/18 Range/Units 06:32 11:57 POC Glucose (mg/dL) 127 H 110 H (75-99) mg/dL Assessment and Plan Plan: - hypercalcemia: Secondary to malignancy: Continue with IV fluids, zoledronic acid and calcitonin. Bone scan did not show any other lesions. Serum calcium improved to 11 IV fluids at this time. Improved as well -Osteolytic right hip lesions: Orthopedic surgery evaluated the patient and patient will go for intramedullary nailing Correa -Possible Lung cancer type of lung cancer is unknown probably metastatic stage IV, is undergoing biopsy today -Hypertension -Hyperlipidemia -COPD we will exacerbation patient is on inhaled steroids and inhalational treatments. - nicotine dependence For above-mentioned chronic pelvic medical problems patient will be resumed and continued on appropriate home medications
--- NOTE | 2018-07-06 13:33 | P.PN ---
Subjective Progress Note Date: 07/06/18 A 68-year-old female patient, a chronic smoker with known history of COPD diabetes hypertension hyperlipidemia, presented to the hospital because of a worsening right hip pain. This pain started approximately 2 weeks ago to the point where the patient was unable to put any weight on her right hip. She was initially seen by cardiology. As part of her workup, she had a chest x-ray that abnormal and following that she underwent a CAT scan of the chest that showed a large cavitating thick-walled lesion in the right upper lobe in addition to right hilar and mediastinal mass and extensive mediastinal lymphadenopathy consistent with primary bronchogenic cancer, likely of a squamous cell type due to the extensive cavitation seen in the right upper lobe. The CAT scan also showed pulmonary nodules on the left that were subcentimeter. These were however consistent with metastatic disease knowing that the patient has several metastatic right sided pulmonary lesions also. X- ray of the hip was also completed and the patient had a large destructive lesion in the proximal femur suggestive of malignancy/metastatic involvement. The patient came into the hospital because of the right hip pain and shortness of breath and generalized weakness. Electrodes were done and the patient's creatinine was at 1.4 and a calcium level at a time of admission was 14.4. The patient was given IV fluids. The patient was given Zomig and they're monitoring the calcium level for now. She has chronic exertional dyspnea. She has a chronic congested cough. No hemoptysis. No pleurisy. No previous TB exposure. She has [id number] smoking history. The patient will be seen by hematology oncology. Altered mentation. No change in the voice characteristics. The patient is seen again today 07/05/2018 in follow-up on the selective care unit. She is currently awake and alert in no acute distress. She is breathing a bit easier today as compared to yesterday. He is maintaining good O2 saturations in the 90s on room air. She's been afebrile. Hemodynamically stable. Whole-body bone scan revealed no areas of suspicion suggestive of metastasis. X-ray of the right hip revealed a persistence of a lytic lesion within the proximal right mid diaphyseal femur. Orthopedics is recommending a prophylactic intramedullary nailing of the right hip and femur. This is tentatively scheduled for July 08. She is scheduled for bronchoscopy with FNA and core biopsy of the right mediastinal mass today of the with Dr. Louis. On 07/06/2008 and I'm seeing this patient for a follow-up. Doing well. No respiratory difficulties. Bronchoscopy was done yesterday. No complications. Patient was seen by or so. The patient will require into maternity nailing of the right hip. This will be done on Sunday by Dr. Alvarez. No nausea. No vomiting. No headaches. No altered mentation. Pain is under good control. Tolerating diet. No other issues for now. Objective - Vital Signs Vital signs: Vital Signs Temp 97.5 F L 07/06/18 08:20 Pulse 72 07/06/18 11:28 Resp 16 07/06/18 08:20 BP 127/76 07/06/18 08:20 Pulse Ox 94 L 07/06/18 08:20 Intake & Output 07/05/18 07/06/18 07/06/18 18:59 06:59 18:59 Intake Total 2340 1500 430 Balance 2340 1500 430 Weight 93.4 kg Intake: IV 750 Intake, IV Titration 1350 1500 Amount Sodium Chloride 0.9% 1, 1350 1500 000 ml @ 150 mls/hr IV . Q6H40M [facility] Rx#:[id number] Oral 240 430 Other: # Voids 4 1 1 - Exam Gen. appearance, comfortable no acute distress. On room air. Head exam was generally normal. There was no scleral icterus or corneal arcus. Mucous membranes were moist. Neck was supple and without jugular venous distension, thyromegaly, or carotid bruits. Carotids were easily palpable bilaterally. There was no adenopathy. Lungs sounds are diminished bilaterally along with some few scattered expiratory wheezes throughout the lung palacios. Cardiac exam revealed the PMI to be normally situated and sized. The rhythm was regular and no extrasystoles were noted during several minutes of auscultation. The first and second heart sounds were normal and physiologic splitting of the second heart sound was noted. There were no murmurs, rubs, clicks, or gallops. Abdominal exam revealed normal bowel sounds. The abdomen was soft, non-tender, and without masses, organomegaly, or appreciable enlargement of the abdominal aorta. Examination of the extremities revealed easily palpable radial, femoral and pedal pulses. There was no cyanosis, clubbing or edema. Neurologically the patient is awake and alert and there is no focal neurological deficit. Gait is off as the patient is having right hip pain and she is unable to bear weight on the right hip. Examination of the skin revealed no evidence of significant rashes, suspicious appearing nevi or other concerning lesions. There is a scar in the upper back posteriorly related to a previous resection of a malignant melanoma. - Labs CBC & Chem 7: 07/04/18 06:24 07/05/18 07:03 Labs: Abnormal Lab Results - Last 24 Hours (Table) 07/05/18 07/05/18 07/06/18 Range/Units 16:56 21:20 06:32 POC Glucose (mg/dL) 135 H 112 H 127 H (75-99) mg/dL 07/06/18 Range/Units 11:57 POC Glucose (mg/dL) 110 H (75-99) mg/dL Assessment and Plan Plan: Assessment 1 right upper lobe cavitating mass with thick walled characteristics and nodular borders in addition to right hilar and mediastinal lymphadenopathy and a 7.5 cm soft tissue mass with extensive mediastinal lymphadenopathy consistent with metastatic lung carcinoma, highly suspect 7 cell carcinoma based on the extensive cavitation seen he had noted the patient also has pulmonary nodules bilaterally more so on the right. The patient is post bronchoscopy and transbronchial needle aspirate of the paratracheal mass and the final path results are still pending. 2 right hip metastatic involvement with secondary pain and inability to walk and weightbearing, currently awaiting a surgical intervention and nailing of the hip 3 acute hypercalcemia secondary to metastatic carcinoma, this is secondary to skeletal involvement and skeletal metastases, improving and the calcium level is improved 4 COPD 5 chronic smoker 6 remote history of melanoma resected 7 retention 8 hyperlipidemia 9 smoker Plan Pulmonary status is stable. Awaiting final path results from the bronchoscopy. We'll proceed with intramedullary nailing of the right hip to reduce the risk of fracture in the future. Pain is under good control. Continue to follow.
--- NOTE | 2018-07-06 14:09 | P.PN ---
Subjective Progress Note Date: 07/06/18 This is a 68-year-old female who was recently seen in the office for symptoms of shortness of breath and pedal swelling. Chest x-ray subsequently showed evidence of cavitating lesion in the right lung. Patient is also found to have hypercalcemia. She is also diagnosed to have metastatic CA to the hip bone. Patient had a bronchoscopy today, biopsy. There is a plan for possible radiation therapy for the hip. On the echocardiogram done in the office, there was a suspicious mass in the right atrium. We're going to discuss with control systems designer. If it is necessary to establish the nature of the mass in the right atrium, we may consider SAMUEL examination. If he doesn't make any difference for therapeutic approach, we may not proceed with SAMUEL. Patient is feeling slightly better. Doesn't appear to be acute distress. We'll continue current medical therapy 07/06: patient has been seen and examined today. She is sitting up in a recliner and appears to be comfortable. No respiratory distress and patient denies shortness of breath. Orthopedics may plan for intramedullary nailing of the right hip on Sunday. There is no plan for SAMUEL at this time. Heart rate has been running in the 70s, pulse ox 94% on room air.blood pressure 127/76. Objective - Vital Signs Vital signs: Vital Signs Temp 97.5 F L 07/06/18 08:20 Pulse 72 07/06/18 11:28 Resp 16 07/06/18 08:20 BP 127/76 07/06/18 08:20 Pulse Ox 94 L 07/06/18 08:20 Intake & Output 07/05/18 07/06/18 07/06/18 18:59 06:59 18:59 Intake Total 2340 1500 430 Balance 2340 1500 430 Weight 93.4 kg Intake: IV 750 Intake, IV Titration 1350 1500 Amount Sodium Chloride 0.9% 1, 1350 1500 000 ml @ 150 mls/hr IV . Q6H40M [facility] Rx#:[id number] Oral 240 430 Other: # Voids 4 1 1 - Exam GENERAL EXAM: Patient is alert and oriented and doesn't appear to be in any acute distresswhile at rest HEENT: Normocephalic. Normal reaction of pupils, equal size, normal range of extraocular motion. No erythema or exudates in the throat. NECK: No masses, no nuchal rigidity. CHEST: No chest wall deformity. LUNGS: Equal air entry with no crackles or wheeze. HEART: S1 and S2 normal with no audible mumurs or gallops. Regular rhythm, femorals equal on both sides.. ABDOMEN: No hepatosplenomegaly, normal bowel sounds, no guarding or rigidity. SKIN: No rashes CENTRAL NERVOUS SYSTEM: No focal deficits. EXTREMITIES: Bilateral edema - Labs CBC & Chem 7: 07/04/18 06:24 07/05/18 07:03 Labs: Abnormal Lab Results - Last 24 Hours (Table) 07/05/18 07/05/18 07/06/18 Range/Units 16:56 21:20 06:32 POC Glucose (mg/dL) 135 H 112 H 127 H (75-99) mg/dL 07/06/18 Range/Units 11:57 POC Glucose (mg/dL) 110 H (75-99) mg/dL Assessment and Plan Plan: #1 severe right hip pain with evidence of a large destructive lesion with most likely lung cancer with metastatic disease. #2 hypercalcemiasecondary to metastatic disease secondary to skeletal involvement. #3 right upper lobe cavitary mass consistent with metastatic lung cancerstatus post bronchoscopy and biopsy. #4 hypertension #5 hyperlipidemia #6 nicotine dependence #7 COPD #8 acute kidney injury secondary to hypercalcemia-induced ATN Plan At this time, no plan for SAMUEL as this will not alter her treatment plan.continue treatment plan per consultants. Nurse practitioner note has been reviewed, I agree with the documented findings and plan of care. Patient has been seen and examined.
--- NOTE | 2018-07-06 16:22 | PN ---
PROGRESS NOTE Mrs. Patrizia Castro is a lady who has what seems to be a cavitary lesion in her lung and metastatic carcinoma of the lung with metastasis to the hip area with pain. She is being seen by Pulmonology, Radiation Therapy, and also Orthopedic Surgery. She has history of percutaneous ASD closure in the past. It appears that there may be a question of a thrombus in her right atrium. An echo in the office, which was a transthoracic echo, suggested that. However, we will for now await further input from Pulmonology, Radiation Oncology and Orthopedic Surgery before doing any invasive intervention. SAMUEL echo will not be done at this time, but we will certainly perform that down the road if it is going to change the management approach. Patient's overall prognosis remains quite guarded. Patient is a smoker and has multiple comorbid issues as well. Prognosis remains guarded. MMODL / IJN: [id number] /
[2018-07-06 16:32] LABS: Glucose,Whole Blood 97 mg/dL (75-99)
[2018-07-06] MEDS: ATORVASTATIN 10 MG TAB PO SCH (19:57)
[2018-07-06] MEDS: MELATONIN 3 MG TABLET PO SCH (19:57)
[2018-07-06 20:53] LABS: Glucose,Whole Blood 165 mg/dL (75-99)
[2018-07-07] MEDS: traMADol 50 MG TAB PO PRN ×3 (02:09→20:51)
[2018-07-07] MEDS: PANTOPRAZOLE 40 MG TABLET PO SCH ×2 (05:57→17:45)
[2018-07-07] MEDS: SODIUM CHLORIDE 0.9% 1,000 ML IV SCH ×2 (05:59→17:58)
[2018-07-07 06:03] LABS: Glucose,Whole Blood 104 mg/dL (75-99)
[2018-07-07] MEDS: INSULIN ASPART 100 UNIT/ML 1 ML 10 ML VIAL SQ SCH ×4 (06:09→21:07)
[2018-07-07 06:27] LABS: Albumin 2.8 g/dL (3.5-5.0); Magnesium 1.7 mg/dL (1.6-2.3); Potassium 4.4 mmol/L (3.5-5.1); Total Bilirubin 0.4 mg/dL (0.2-1.3); Total Protein 5.6 g/dL (6.3-8.2)
[2018-07-07] MEDS: DOCUSATE 100 MG CAP PO SCH ×2 (07:38→20:51)
[2018-07-07] MEDS: HYDROmorphone 1 MG/ML 1 ML SYRINGE IVP PRN ×4 (07:39→22:50)
[2018-07-07] MEDS: CHOLECALCIFEROL 1,000 UNIT TAB PO SCH (07:39)
[2018-07-07] MEDS: IPRATROPIUM-ALBUTEROL 3 ML NEB INHALATION SCH ×4 (07:58→20:02)
[2018-07-07] MEDS: HYDROcodone/APAP 10-325MG 1 EACH TAB PO PRN ×2 (09:55→16:39)
--- NOTE | 2018-07-07 10:01 | P.PN ---
Subjective Patient is seen in follow-up for acute kidney injury and hypercalcemia. Calcium level was down to 10 and creatinine down to 1.2. Patient's currently sitting up in chair. Oral intake is fair. No vomiting or diarrhea. Admits to good urine output. She is maintained on normal saline at 100 mL an hour. Vital signs are stable. General: The patient appeared well nourished and normally developed. HEENT: Head exam is unremarkable. Neck is without jugular venous distension. LUNGS: Lungs are clear to auscultation and percussion. Breath sounds decreased. HEART: Rate and Rhythm are regular. First and second heart sounds normal. No murmurs, rubs or gallops. ABDOMEN: Abdominal exam reveals normal bowel sounds. Non-tender and non- distended. No evidence of peritonitis. EXTREMITITES: Trace edema. Objective - Vital Signs Vital signs: Vital Signs Temp 97.1 F L 07/07/18 03:20 Pulse 80 07/07/18 08:09 Resp 18 07/07/18 08:00 BP 127/68 07/07/18 08:00 Pulse Ox 95 07/07/18 08:01 Intake & Output 07/06/18 07/07/18 07/07/18 18:59 06:59 18:59 Intake Total 550 500 120 Output Total 500 1 Balance 50 499 120 Weight 95 kg Intake: Intake, IV Titration 500 Amount Sodium Chloride 0.9% 1, 500 000 ml @ 100 mls/hr IV . Q10H [facility] Rx#:[id number] Oral 550 120 Output: Urine 500 Stool 1 Other: # Voids 1 1 - Labs CBC & Chem 7: 07/04/18 06:24 07/07/18 05:51 Labs: Abnormal Lab Results - Last 24 Hours (Table) 07/06/18 07/06/18 07/06/18 Range/Units 06:55 11:57 20:52 Chloride (98-107) mmol/L Creatinine (0.52-1.04) mg/dL POC Glucose (mg/dL) 110 H 165 H (75-99) mg/dL Total Protein (6.3-8.2) g/dL Albumin (3.5-5.0) g/dL PTH Intact 101.2 H (14.0-72.0) pg/mL 07/07/18 07/07/18 Range/Units 05:51 06:01 Chloride 113 H (98-107) mmol/L Creatinine 1.20 H (0.52-1.04) mg/dL POC Glucose (mg/dL) 104 H (75-99) mg/dL Total Protein 5.6 L (6.3-8.2) g/dL Albumin 2.8 L (3.5-5.0) g/dL PTH Intact (14.0-72.0) pg/mL Assessment and Plan Plan: Assessment: 1. Nonoliguric acute kidney injury secondary to hypercalcemia-induced ATN. Renal function improving. 2. Hypercalcemia secondary to underlying malignancy most likely. Patient is status post calcitonin as well as zoledronic acid. Improving. PTH level noted to be high at 101 - this raises concern for parathyroid etiology. 3. Right lung cavitary treated lesion as well as right femur lytic lesion being followed by oncology and orthopedics. Patient is status post biopsy of the lung mass and is scheduled to undergo surgical intervention of the hip tomorrow. Plan: I will decrease the rate of normal saline to 50 mL an hour. Check parathyroid nuclear scan. Encouraged oral intake. Repeat electrolytes in the morning. Monitor calcium level. May need to start Sensipar if calcium rises further as PTH is elevated.
[2018-07-07 11:46] LABS: Glucose,Whole Blood 107 mg/dL (75-99)
--- NOTE | 2018-07-07 12:17 | P.PN ---
Subjective Patient is admitted for hypercalcemia which is improving at this point of time patient received the solids chronic acid yesterday. Patient is on IV fluids which will be continued creatinine improved to 1.4. Patient is having a lot of hip pain patient has a lesion in the hip area for which patient the will go for prophylactic Surgical procedure for her right hip patient is to have osteolytic lesion due to metastasis primary being lung cancer patient is undergoing bronchoscopy and biopsy today. A she is comparing of severe pain in the hip area but unable to tolerate Dilaudid very well. Patient will be started on tramadol can you with Tylenol. We cannot use morphine because of her poor renal function bone scan was done yesterday which did not show any other significant bony lesions. 07/06/2018 Patient's hypercalcemia improved patient is still having pain in the right leg and patient will undergo intramedullary nailing tomorrow patient had a biopsy of lung mass yesterday. And discussed the patient regarding surgical procedure for her. Had serum calcium and serum creatinine improved Hip. 07/07/2018 Complaining of pain in the right hip area patient may have some bronchitis I'll start her on doxycycline. Patient will undergo parathyroid scan as her PTH is very high Constitutional: Denied any fatigue denied any fever. Cardio vascular: denied any chest pain, palpitations Gastrointestinal denied any nausea vomiting Pulmonary: Denied any shortness of breath cough Neurologic denied any new focal deficits All inpatient medications were reviewed and appropriate changes in these medications as dictated in the interval history and assessment and plan. Objective - Vital Signs Vital signs: Vital Signs Temp 97.1 F L 07/07/18 03:20 Pulse 76 07/07/18 11:46 Resp 18 07/07/18 11:41 BP 142/73 07/07/18 11:41 Pulse Ox 94 L 07/07/18 11:41 Intake & Output 07/06/18 07/07/18 07/07/18 18:59 06:59 18:59 Intake Total 550 500 120 Output Total 500 1 500 Balance 50 499 -380 Weight 95 kg Intake: Intake, IV Titration 500 Amount Sodium Chloride 0.9% 1, 500 000 ml @ 100 mls/hr IV . Q10H [facility] Rx#:[id number] Oral 550 120 Output: Urine 500 500 Stool 1 Other: # Voids 1 1 - Exam PHYSICAL EXAMINATION: GENERAL: The patient is alert and oriented x3, not in any acute distress. Well developed, well nourished. HEENT: Pupils are round and equally reacting to light. EOMI. No scleral icterus. No conjunctival pallor. Normocephalic, atraumatic. No pharyngeal erythema. No thyromegaly. CARDIOVASCULAR: S1 and S2 present. No murmurs, rubs, or gallops. PULMONARY: Minimal expiratory wheezing on exam ABDOMEN: Soft, nontender, nondistended, normoactive bowel sounds. No palpable organomegaly. MUSCULOSKELETAL: No joint swelling or deformity. EXTREMITIES: No cyanosis, clubbing, or pedal edema. NEUROLOGICAL: Gross neurological examination did not reveal any focal deficits. SKIN: No rashes. - Labs CBC & Chem 7: 07/04/18 06:24 07/07/18 05:51 Labs: Abnormal Lab Results - Last 24 Hours (Table) 07/06/18 07/06/18 07/07/18 Range/Units 06:55 20:52 05:51 Chloride 113 H (98-107) mmol/L Creatinine 1.20 H (0.52-1.04) mg/dL POC Glucose (mg/dL) 165 H (75-99) mg/dL Total Protein 5.6 L (6.3-8.2) g/dL Albumin 2.8 L (3.5-5.0) g/dL PTH Intact 101.2 H (14.0-72.0) pg/mL 07/07/18 07/07/18 Range/Units 06:01 11:34 Chloride (98-107) mmol/L Creatinine (0.52-1.04) mg/dL POC Glucose (mg/dL) 104 H 107 H (75-99) mg/dL Total Protein (6.3-8.2) g/dL Albumin (3.5-5.0) g/dL PTH Intact (14.0-72.0) pg/mL Assessment and Plan Plan: - hypercalcemia: Secondary to malignancy: Continue with IV fluids, zoledronic acid and calcitonin. Bone scan did not show any other lesions. Serum calcium improved to 11 IV fluids at this time. Improved as well. Most probable reason for her hypercalcemia is malignancy. In that case PTH should be low but her PTH is very high will undergo a thyroid scan tomorrow before intramedullary nailing -Osteolytic right hip lesions: Orthopedic surgery evaluated the patient and patient will go for intramedullary nailing -Possible Lung cancer type of lung cancer is unknown probably metastatic stage IV, had biopsy 2 days ago -Hypertension -Hyperlipidemia -COPD we will exacerbation patient is on inhaled steroids and inhalational treatments. - nicotine dependence For above-mentioned chronic pelvic medical problems patient will be resumed and continued on appropriate home medications
[2018-07-07] MEDS: DOXYCYCLINE 100 MG CAP PO SCH ×2 (13:34→20:52)
--- NOTE | 2018-07-07 14:20 | P.PN ---
Subjective Progress Note Date: 07/07/18 A 68-year-old female patient, a chronic smoker with known history of COPD diabetes hypertension hyperlipidemia, presented to the hospital because of a worsening right hip pain. This pain started approximately 2 weeks ago to the point where the patient was unable to put any weight on her right hip. She was initially seen by cardiology. As part of her workup, she had a chest x-ray that abnormal and following that she underwent a CAT scan of the chest that showed a large cavitating thick-walled lesion in the right upper lobe in addition to right hilar and mediastinal mass and extensive mediastinal lymphadenopathy consistent with primary bronchogenic cancer, likely of a squamous cell type due to the extensive cavitation seen in the right upper lobe. The CAT scan also showed pulmonary nodules on the left that were subcentimeter. These were however consistent with metastatic disease knowing that the patient has several metastatic right sided pulmonary lesions also. X- ray of the hip was also completed and the patient had a large destructive lesion in the proximal femur suggestive of malignancy/metastatic involvement. The patient came into the hospital because of the right hip pain and shortness of breath and generalized weakness. Electrodes were done and the patient's creatinine was at 1.4 and a calcium level at a time of admission was 14.4. The patient was given IV fluids. The patient was given Zomig and they're monitoring the calcium level for now. She has chronic exertional dyspnea. She has a chronic congested cough. No hemoptysis. No pleurisy. No previous TB exposure. She has [id number] smoking history. The patient will be seen by hematology oncology. Altered mentation. No change in the voice characteristics. The patient is seen again today 07/05/2018 in follow-up on the selective care unit. She is currently awake and alert in no acute distress. She is breathing a bit easier today as compared to yesterday. He is maintaining good O2 saturations in the 90s on room air. She's been afebrile. Hemodynamically stable. Whole-body bone scan revealed no areas of suspicion suggestive of metastasis. X-ray of the right hip revealed a persistence of a lytic lesion within the proximal right mid diaphyseal femur. Orthopedics is recommending a prophylactic intramedullary nailing of the right hip and femur. This is tentatively scheduled for July 08. She is scheduled for bronchoscopy with FNA and core biopsy of the right mediastinal mass today of the with Dr. Louis. On 07/06/2018 and I'm seeing this patient for a follow-up. Doing well. No respiratory difficulties. Bronchoscopy was done yesterday. No complications. Patient was seen by or so. The patient will require into maternity nailing of the right hip. This will be done on Sunday by Dr. Alvarez. No nausea. No vomiting. No headaches. No altered mentation. Pain is under good control. Tolerating diet. No other issues for now. On 07/07/2018, I'm seeing this patient for a follow-up. Doing well. No complaints. No nausea or vomiting. No chest pain. The right hip pain is still present specially when the patient stands up or walks or applies weight on the involved joints. The plan is to perform intramedullary pending of the joint tomorrow. This will stabilize the joint and decrease the risk of fractures. We'll still awaiting the final results from the bronchoscopy and the needle aspirate. The patient is otherwise doing well. She has no specific complaints. Objective - Vital Signs Vital signs: Vital Signs Temp 97.1 F L 07/07/18 03:20 Pulse 76 07/07/18 11:46 Resp 18 07/07/18 11:41 BP 142/73 07/07/18 11:41 Pulse Ox 94 L 07/07/18 11:41 Intake & Output 07/06/18 07/07/18 07/07/18 18:59 06:59 18:59 Intake Total 550 500 120 Output Total 500 1 950 Balance 50 499 -830 Weight 95 kg Intake: Intake, IV Titration 500 Amount Sodium Chloride 0.9% 1, 500 000 ml @ 50 mls/hr IV . Q20H [facility] Rx#:[id number] Oral 550 120 Output: Urine 500 950 Stool 1 Other: # Voids 1 1 - Exam Gen. appearance, comfortable no acute distress. On room air. Head exam was generally normal. There was no scleral icterus or corneal arcus. Mucous membranes were moist. Neck was supple and without jugular venous distension, thyromegaly, or carotid bruits. Carotids were easily palpable bilaterally. There was no adenopathy. Lungs sounds are diminished bilaterally along with some few scattered expiratory wheezes throughout the lung palacios. Cardiac exam revealed the PMI to be normally situated and sized. The rhythm was regular and no extrasystoles were noted during several minutes of auscultation. The first and second heart sounds were normal and physiologic splitting of the second heart sound was noted. There were no murmurs, rubs, clicks, or gallops. Abdominal exam revealed normal bowel sounds. The abdomen was soft, non-tender, and without masses, organomegaly, or appreciable enlargement of the abdominal aorta. Examination of the extremities revealed easily palpable radial, femoral and pedal pulses. There was no cyanosis, clubbing or edema. Neurologically the patient is awake and alert and there is no focal neurological deficit. Gait is off as the patient is having right hip pain and she is unable to bear weight on the right hip. Examination of the skin revealed no evidence of significant rashes, suspicious appearing nevi or other concerning lesions. There is a scar in the upper back posteriorly related to a previous resection of a malignant melanoma. - Labs CBC & Chem 7: 07/04/18 06:24 07/07/18 05:51 Labs: Abnormal Lab Results - Last 24 Hours (Table) 07/06/18 07/06/18 07/07/18 Range/Units 06:55 20:52 05:51 Chloride 113 H (98-107) mmol/L Creatinine 1.20 H (0.52-1.04) mg/dL POC Glucose (mg/dL) 165 H (75-99) mg/dL Total Protein 5.6 L (6.3-8.2) g/dL Albumin 2.8 L (3.5-5.0) g/dL PTH Intact 101.2 H (14.0-72.0) pg/mL 07/07/18 07/07/18 Range/Units 06:01 11:34 Chloride (98-107) mmol/L Creatinine (0.52-1.04) mg/dL POC Glucose (mg/dL) 104 H 107 H (75-99) mg/dL Total Protein (6.3-8.2) g/dL Albumin (3.5-5.0) g/dL PTH Intact (14.0-72.0) pg/mL Assessment and Plan Plan: Assessment 1 right upper lobe cavitating mass with thick walled characteristics and nodular borders in addition to right hilar and mediastinal lymphadenopathy and a 7.5 cm soft tissue mass with extensive mediastinal lymphadenopathy consistent with metastatic lung carcinoma, highly suspect 7 cell carcinoma based on the extensive cavitation seen he had noted the patient also has pulmonary nodules bilaterally more so on the right. The patient is post bronchoscopy and transbronchial needle aspirate of the paratracheal mass and the final path results are still pending. 2 right hip metastatic involvement with secondary pain and inability to walk and weightbearing, currently awaiting a surgical intervention and nailing of the hip 3 acute hypercalcemia secondary to metastatic carcinoma, this is secondary to skeletal involvement and skeletal metastases, improving and the calcium level is improved and currently is normalized down to 10.0. 4 COPD 5 chronic smoker 6 remote history of melanoma, resected 7 hypertension 8 hyperlipidemia 9 smoker Plan Surgery for tomorrow regarding the metastatic involvement of the right hip and the patient will need surgical intervention with intramedullary nailing of the hip. When he final path reports from the right costal. The transbronchial needle aspirate. We'll continue to follow. Calcium level is normalized and is down to 10.0.
--- NOTE | 2018-07-07 15:56 | PN ---
PROGRESS NOTE Mrs. Castro is a lady with lung CA with possible mets and also there are mets to the right hip and she is going for stabilizing surgery for the hip prior to any radiation for pain. She has smoked up until this admission. She has multiple comorbid conditions. I am recommending that we continue current therapy. Vital signs are stable. S1-S2 heard normally. Short systolic murmur noted. Lungs reveal diminished air entry over both bases. Abdomen and lower extremity exam unchanged. Plan is to continue current medical regimen. There is a question of a right atrial thrombus, but we will not do any intervention unless we have definitive plans. She is going for a hip surgery tomorrow and followed by radiation. Prognosis remains guarded. MMODL / IJN: [id number] /
[2018-07-07 16:40] LABS: Glucose,Whole Blood 104 mg/dL (75-99)
[2018-07-07] MEDS: SYMBICORT 160-4.5 MCG INHALER INHALATION SCH (20:02)
[2018-07-07] MEDS: ATORVASTATIN 10 MG TAB PO SCH (20:51)
[2018-07-07] MEDS: MELATONIN 3 MG TABLET PO SCH (20:52)
[2018-07-07 21:01] LABS: Glucose,Whole Blood 136 mg/dL (75-99)
[2018-07-08] MEDS: HYDROmorphone 1 MG/ML 1 ML SYRINGE IVP PRN ×4 (05:24→23:59)
[2018-07-08 06:11] LABS: Glucose,Whole Blood 107 mg/dL (75-99)
[2018-07-08] MEDS: INSULIN ASPART 100 UNIT/ML 1 ML 10 ML VIAL SQ SCH ×4 (06:16→21:15)
[2018-07-08] MEDS: PANTOPRAZOLE 40 MG TABLET PO SCH ×2 (06:16→20:00)
[2018-07-08 08:26] LABS: Calcium 9.9 mg/dL (8.4-10.2); Magnesium 1.6 mg/dL (1.6-2.3); Potassium 4.3 mmol/L (3.5-5.1)
[2018-07-08] MEDS: HYDROcodone/APAP 10-325MG 1 EACH TAB PO PRN ×2 (08:28→20:16)
[2018-07-08] MEDS: DOXYCYCLINE 100 MG CAP PO SCH ×2 (08:29→20:15)
[2018-07-08] MEDS: IPRATROPIUM-ALBUTEROL 3 ML NEB INHALATION SCH ×4 (09:40→20:01)
[2018-07-08 11:40] LABS: Glucose,Whole Blood 98 mg/dL (75-99)
[2018-07-08] MEDS ORDERED: ceFAZolin IN SWFI 2 GM/20 ML SYRINGE IVP ONE (12:47)
[2018-07-08] MEDS ORDERED: IV FLUID CONTINUATION 1,000 ML IV ONE (13:17)
--- NOTE | 2018-07-08 13:19 | P.PN ---
Subjective Progress Note Date: 07/08/18 Principal diagnosis: Right upper lobe cavitating mass, status post bronchoscopy and transbronchial needle aspirate biopsy A 68-year-old female patient, a chronic smoker with known history of COPD diabetes hypertension hyperlipidemia, presented to the hospital because of a worsening right hip pain. This pain started approximately 2 weeks ago to the point where the patient was unable to put any weight on her right hip. She was initially seen by cardiology. As part of her workup, she had a chest x-ray that abnormal and following that she underwent a CAT scan of the chest that showed a large cavitating thick-walled lesion in the right upper lobe in addition to right hilar and mediastinal mass and extensive mediastinal lymphadenopathy consistent with primary bronchogenic cancer, likely of a squamous cell type due to the extensive cavitation seen in the right upper lobe. The CAT scan also showed pulmonary nodules on the left that were subcentimeter. These were however consistent with metastatic disease knowing that the patient has several metastatic right sided pulmonary lesions also. X- ray of the hip was also completed and the patient had a large destructive lesion in the proximal femur suggestive of malignancy/metastatic involvement. The patient came into the hospital because of the right hip pain and shortness of breath and generalized weakness. Electrodes were done and the patient's creatinine was at 1.4 and a calcium level at a time of admission was 14.4. The patient was given IV fluids. The patient was given Zomig and they're monitoring the calcium level for now. She has chronic exertional dyspnea. She has a chronic congested cough. No hemoptysis. No pleurisy. No previous TB exposure. She has [id number] smoking history. The patient will be seen by hematology oncology. Altered mentation. No change in the voice characteristics. The patient is seen again today 07/05/2018 in follow-up on the selective care unit. She is currently awake and alert in no acute distress. She is breathing a bit easier today as compared to yesterday. He is maintaining good O2 saturations in the 90s on room air. She's been afebrile. Hemodynamically stable. Whole-body bone scan revealed no areas of suspicion suggestive of metastasis. X-ray of the right hip revealed a persistence of a lytic lesion within the proximal right mid diaphyseal femur. Orthopedics is recommending a prophylactic intramedullary nailing of the right hip and femur. This is tentatively scheduled for July 08. She is scheduled for bronchoscopy with FNA and core biopsy of the right mediastinal mass today of the with Dr. Louis. On 07/06/2018 and I'm seeing this patient for a follow-up. Doing well. No respiratory difficulties. Bronchoscopy was done yesterday. No complications. Patient was seen by or so. The patient will require into maternity nailing of the right hip. This will be done on Sunday by Dr. Alvarez. No nausea. No vomiting. No headaches. No altered mentation. Pain is under good control. Tolerating diet. No other issues for now. On 07/07/2018, I'm seeing this patient for a follow-up. Doing well. No complaints. No nausea or vomiting. No chest pain. The right hip pain is still present specially when the patient stands up or walks or applies weight on the involved joints. The plan is to perform intramedullary pending of the joint tomorrow. This will stabilize the joint and decrease the risk of fractures. We'll still awaiting the final results from the bronchoscopy and the needle aspirate. The patient is otherwise doing well. She has no specific complaints. On 07/08/2018 patient seen in follow-up on selective care unit. She is resting in bed, she scheduled for surgery intramedullary nailing of the hip. She denies any dyspnea, lung sounds are positive for wheezes and scattered rhonchi. Room air pulse ox is 95%, patient is afebrile, hemodynamically stable, transbronchial needle biopsy report is pending. No chest pain no worsening dyspnea at this time. Objective - Vital Signs Vital signs: Vital Signs Temp 97.5 F L 07/08/18 04:00 Pulse 74 07/08/18 13:07 Resp 20 07/08/18 09:40 BP 147/83 07/08/18 04:00 Pulse Ox 95 07/08/18 04:00 Intake & Output 07/07/18 07/08/18 07/08/18 18:59 06:59 18:59 Intake Total 360 525 Output Total 950 Balance -590 525 Weight 95.8 kg Intake: Intake, IV Titration 525 Amount Sodium Chloride 0.9% 1, 525 000 ml @ 50 mls/hr IV . Q20H [facility] Rx#:[id number] Oral 360 Output: Urine 950 Other: # Voids 1 - Exam Gen. appearance, comfortable no acute distress. On room air. Head exam was generally normal. There was no scleral icterus or corneal arcus. Mucous membranes were moist. Neck was supple and without jugular venous distension, thyromegaly, or carotid bruits. Carotids were easily palpable bilaterally. There was no adenopathy. Lungs sounds are diminished bilaterally along with some few scattered expiratory wheezes throughout the lung palacios. Cardiac exam revealed the PMI to be normally situated and sized. The rhythm was regular and no extrasystoles were noted during several minutes of auscultation. The first and second heart sounds were normal and physiologic splitting of the second heart sound was noted. There were no murmurs, rubs, clicks, or gallops. Abdominal exam revealed normal bowel sounds. The abdomen was soft, non-tender, and without masses, organomegaly, or appreciable enlargement of the abdominal aorta. Examination of the extremities revealed easily palpable radial, femoral and pedal pulses. There was no cyanosis, clubbing or edema. Neurologically the patient is awake and alert and there is no focal neurological deficit. Gait is off as the patient is having right hip pain and she is unable to bear weight on the right hip. Examination of the skin revealed no evidence of significant rashes, suspicious appearing nevi or other concerning lesions. There is a scar in the upper back posteriorly related to a previous resection of a malignant melanoma. - Labs CBC & Chem 7: 07/04/18 06:24 07/08/18 07:53 Labs: Abnormal Lab Results - Last 24 Hours (Table) 07/07/18 07/07/18 07/08/18 Range/Units 16:34 20:59 06:09 Chloride (98-107) mmol/L Creatinine (0.52-1.04) mg/dL POC Glucose (mg/dL) 104 H 136 H 107 H (75-99) mg/dL 07/08/18 Range/Units 07:53 Chloride 111 H (98-107) mmol/L Creatinine 1.27 H (0.52-1.04) mg/dL POC Glucose (mg/dL) (75-99) mg/dL Assessment and Plan Plan: Assessment: 1 right upper lobe cavitating mass with thick walled characteristics and nodular borders in addition to right hilar and mediastinal lymphadenopathy and a 7.5 cm soft tissue mass with extensive mediastinal lymphadenopathy consistent with metastatic lung carcinoma, highly suspect 7 cell carcinoma based on the extensive cavitation seen he had noted the patient also has pulmonary nodules bilaterally more so on the right. The patient is post bronchoscopy and transbronchial needle aspirate of the paratracheal mass and the final path results are still pending. 2 right hip metastatic involvement with secondary pain and inability to walk and weightbearing, currently awaiting a surgical intervention and nailing of the hip 3 acute hypercalcemia secondary to metastatic carcinoma, this is secondary to skeletal involvement and skeletal metastases, improving and the calcium level is improved and currently is normalized down to 10.0. 4 COPD 5 chronic smoker 6 remote history of melanoma, resected 7 hypertension 8 hyperlipidemia 9 smoker Plan: Still awaiting the results of the transbronchial needle biopsy. Patient denies any worsening dyspnea and chest pain, no hemoptysis, vitals signs are stable. Patient scheduled for surgical intervention involving the right hip. continue to follow with you I performed a history & physical examination of the patient and discussed their management with my nurse practitioner, Nicole Tyson. I reviewed the nurse practitioner's note and agree with the documented findings and plan of care. Lung sounds are positive for some scattered wheezes and rhonchi. The findings and the impression was discussed with the patient. I attest to the documentation by the nurse practitioner. Time with Patient: Less than 30
[2018-07-08 14:36] VITALS: BMI 36.2
[2018-07-08] MEDS ORDERED: MIDAZOLAM 2 MG/2 ML VIAL ONE (15:29)
[2018-07-08] MEDS ORDERED: PROPOFOL 10 MG/ML 20 ML VIAL IV ONE (15:29)
[2018-07-08] MEDS ORDERED: fentaNYL (PF) 50 MCG/ML 2 ML AMP ONE (15:29)
[2018-07-08] MEDS ORDERED: HYDROmorphone (PF) 1 MG/ML ONE (15:29)
[2018-07-08] MEDS ORDERED: KETAMINE 10 MG/ML 20 ML VIAL ONE (15:29)
[2018-07-08] MEDS ORDERED: LACTATED RINGERS 1,000 ML IV ONE (15:43)
[2018-07-08] MEDS ORDERED: SODIUM CHLORIDE 0.9% 100 ML with ceFAZolin 2,000 MG IV ONE ×2 (15:58)
[2018-07-08] MEDS ORDERED: ceFAZolin 1,000 MG in SODIUM CHLORIDE 0.9% 1,000 ML IRRIGATION ONE ×4 (16:11)
--- NOTE | 2018-07-08 16:22 | P.PN ---
Subjective Progress Note Date: 07/08/18 Progress note being dictated for Dr. Rocha. Interval history:Patient is admitted for hypercalcemia which is improving at this point of time patient received the solids chronic acid yesterday. Patient is on IV fluids which will be continued creatinine improved to 1.4. Patient is having a lot of hip pain patient has a lesion in the hip area for which patient the will go for prophylactic Surgical procedure for her right hip patient is to have osteolytic lesion due to metastasis primary being lung cancer patient is undergoing bronchoscopy and biopsy today. A she is comparing of severe pain in the hip area but unable to tolerate Dilaudid very well. Patient will be started on tramadol can you with Tylenol. We cannot use morphine because of her poor renal function bone scan was done yesterday which did not show any other significant bony lesions. 07/06/2018 Patient's hypercalcemia improved patient is still having pain in the right leg and patient will undergo intramedullary nailing tomorrow patient had a biopsy of lung mass yesterday. And discussed the patient regarding surgical procedure for her. Had serum calcium and serum creatinine improved Hip. 07/07/2018 Complaining of pain in the right hip area patient may have some bronchitis I'll start her on doxycycline. Patient will undergo parathyroid scan as her PTH is very high. 07/08/2018 patient unable to complete parathyroid scan. Awaiting intramedullary nailing today. Calcium and continues to improve down to 9.9. Creatinine 1.27. MRI of brain, patient declined. Positive cough sometimes productive. Maintaining O2 sats of 95% on room air. Afebrile. Bronchial biopsy report pending. Constitutional: Denied any fatigue denied any fever. Cardio vascular: denied any chest pain, palpitations Gastrointestinal denied any nausea vomiting Pulmonary: Denied any shortness of breath cough Neurologic denied any new focal deficits Active Medications Acetaminophen (Tylenol Tab) 650 mg PO Q6HR PRN PRN Reason: Fever and/ or Pain Hydrocodone Bitart/Acetaminophen (Bartlett 10) 1 each PO Q4H PRN PRN Reason: Pain Last Admin: 07/08/18 08:28 Dose: 1 each Albuterol/Ipratropium (Duoneb 0.5 Mg-3 Mg/3 Ml Soln) 3 ml INHALATION RT-QID MABLE Last Admin: 07/08/18 15:35 Dose: Not Given Albuterol/Ipratropium (Duoneb 0.5 Mg-3 Mg/3 Ml Soln) 3 ml INHALATION RT-Q2H PRN PRN Reason: Shortness Of Breath Or Wheezing Atorvastatin Calcium (Lipitor) 10 mg PO [facility] Last Admin: 07/07/18 20:51 Dose: 10 mg Budesonide/Formoterol Fumarate (Symbicort 160-4.5 Mcg Inhaler) 2 puff INHALATION RT-HS [facility] Last Admin: 07/07/18 20:02 Dose: 2 puff Cholecalciferol (Vitamin D3) 2,000 unit PO DAILY [facility] Last Admin: 07/07/18 07:39 Dose: 2,000 unit Docusate Sodium (Colace) 100 mg PO BID [facility] Last Admin: 07/07/18 20:51 Dose: 100 mg Doxycycline Monohydrate (Vibramycin) 100 mg PO BID [facility] Last Admin: 07/08/18 08:29 Dose: 100 mg Hydromorphone HCl (Dilaudid) 0.5 mg IVP Q4HR PRN PRN Reason: Breakthrough Pain Last Admin: 07/08/18 11:41 Dose: 0.5 mg Sodium Chloride (Saline 0.9%) 1,000 mls @ 50 mls/hr IV .Q20H [facility] Last Admin: 07/07/18 17:58 Dose: Not Given Insulin Aspart (Novolog) 0 unit SQ ACHS [facility]; Protocol Last Admin: 07/08/18 06:16 Dose: Not Given Melatonin (Melatonin) 6 mg PO [facility] Last Admin: 07/07/18 20:52 Dose: 6 mg Naloxone HCl (Narcan) 0.2 mg IV Q2M PRN PRN Reason: Opioid Reversal Ondansetron HCl (Zofran) 4 mg IVP Q6HR PRN PRN Reason: Nausea And Vomiting Pantoprazole Sodium (Protonix) 40 mg PO AC-BID [facility] Last Admin: 07/08/18 06:16 Dose: Not Given Tramadol HCl (Ultram) 50 mg PO QID PRN PRN Reason: Mild Pain Last Admin: 07/07/18 20:51 Dose: 50 mg Objective - Vital Signs Vital signs: Vital Signs Temp 98.7 F 07/08/18 13:19 Pulse 76 07/08/18 13:19 Resp 20 07/08/18 13:19 BP 157/69 07/08/18 13:19 Pulse Ox 94 L 07/08/18 13:19 Intake & Output 07/07/18 07/08/18 07/08/18 18:59 06:59 18:59 Intake Total 360 525 50 Output Total 950 2 Balance -590 525 48 Weight 95.8 kg 95.8 kg Intake: IV 50 Intake, IV Titration 525 Amount Sodium Chloride 0.9% 1, 525 000 ml @ 50 mls/hr IV . Q20H [facility] Rx#:[id number] Oral 360 Output: Urine 950 Stool 2 Other: Voiding Method Bedside Commode # Voids 1 - Exam GENERAL: The patient is sitting up at bedside, alert and oriented x3, not in any acute distress. Well developed, well nourished. HEENT: Pupils are round and equally reacting to light. EOMI. No scleral icterus. No conjunctival pallor. Normocephalic, atraumatic. CARDIOVASCULAR: S1 and S2 present. No murmurs, rubs, or gallops. PULMONARY: Bilateral bases diminished, scattered rhonchi and wheezing ABDOMEN: Soft, nontender, nondistended, normoactive bowel sounds. No palpable organomegaly. MUSCULOSKELETAL: No joint swelling or deformity. EXTREMITIES: No cyanosis, clubbing, or pedal edema. NEUROLOGICAL: Gross neurological examination did not reveal any focal deficits. SKIN: No rashes. - Labs CBC & Chem 7: 07/04/18 06:24 07/08/18 07:53 Labs: Abnormal Lab Results - Last 24 Hours (Table) 07/07/18 07/07/18 07/08/18 Range/Units 16:34 20:59 06:09 Chloride (98-107) mmol/L Creatinine (0.52-1.04) mg/dL POC Glucose (mg/dL) 104 H 136 H 107 H (75-99) mg/dL 07/08/18 Range/Units 07:53 Chloride 111 H (98-107) mmol/L Creatinine 1.27 H (0.52-1.04) mg/dL POC Glucose (mg/dL) (75-99) mg/dL Assessment and Plan Assessment: -Acute hypercalcemia: possibly Secondary to malignancy: Bone scan did not show any other lesions. Calcium normalized. -Osteolytic right hip lesions:intramedullary nailing today. -Possible Lung cancer type of lung cancer is unknown probably metastatic stage IV, status post biopsy biopsy, results pending -Hypertension -Hyperlipidemia -COPD, acute exacerbation patient is on inhaled steroids and inhalational treatments. - nicotine dependence Plan: Continue on current medication regime ,monitoring and symptomatic treatment. Unable to complete thyroid scan. Maintain nebulized bronchodilators. Maintain IV fluid hydration, zaledronic acid, calcitonin. NPO, scheduled for intramedullary nailing today. Bronchial biopsy pending. Prognosis guarded given multiple complex medical issues. The impression and plan of care has been dictated as directed. : I performed a history and examination of this patient, discussed the same with the dictator. I agree with the dictator's note ,documented as a scribe. Any additional findings or plans will be noted.
[2018-07-08] MEDS ORDERED: DIAZEPAM 5 MG TAB PO PRN (17:48)
[2018-07-08] MEDS ORDERED: TEMAZEPAM 15 MG CAP PO PRN (17:48)
[2018-07-08] MEDS ORDERED: MAGNESIUM HYDROXIDE 2,400 MG/10 ML CUP PO PRN (17:48)
[2018-07-08] MEDS ORDERED: NALOXONE 0.4 MG/ML 1 ML VIAL IV PRN (17:48)
[2018-07-08] MEDS ORDERED: HYDROmorphone 1 MG/ML 1 ML SYRINGE IVP PRN ×3 (17:48)
[2018-07-08] MEDS ORDERED: fentaNYL (PF) 50 MCG/ML 2 ML AMP IVP ONE ×2 (17:56→18:02)
[2018-07-08] MEDS ORDERED: MEPERIDINE 50 MG/ML SYRINGE IVP ONE (18:06)
[2018-07-08] MEDS ORDERED: HYDROmorphone 1 MG/ML 1 ML SYRINGE IVP ONE (18:25)
[2018-07-08] MEDS: CHOLECALCIFEROL 1,000 UNIT TAB PO SCH (19:58)
[2018-07-08] MEDS: SODIUM CHLORIDE 0.9% 1,000 ML IV SCH (19:58)
[2018-07-08] MEDS: DOCUSATE 100 MG CAP PO SCH ×2 (19:58→20:16)
[2018-07-08] MEDS: SYMBICORT 160-4.5 MCG INHALER INHALATION SCH (20:01)
[2018-07-08] MEDS: ATORVASTATIN 10 MG TAB PO SCH (20:15)
[2018-07-08] MEDS: LACTATED RINGERS 1,000 ML IV SCH (20:22)
[2018-07-08 20:38] LABS: Basophils % (A) 0 %; Eosinophils # (A) 0.4 k/uL (0-0.7); Eosinophils % (A) 3 %; HCT 38.7 % (34.0-46.0); HGB 12.1 gm/dL (11.4-16.0); Lymphocytes # (A) 1.1 k/uL (1.0-4.8); Lymphocytes % (A) 9 %; MCH 28.2 pg (25.0-35.0); MCHC 31.2 g/dL (31.0-37.0); MCV 90.5 fL (80.0-100.0); Mean Platelet Volume 7.2; Monocytes # (A) 0.6 k/uL (0-1.0); Monocytes % (A) 5 %; Neutrophils % (A) 81 %; Platelet Count 324 k/uL (150-450); RBC 4.28 m/uL (3.80-5.40); RDW 15.6 % (11.5-15.5); WBC 12.3 k/uL (3.8-10.6)
[2018-07-08 21:02] LABS: Glucose,Whole Blood 97 mg/dL (75-99)
[2018-07-08] MEDS: SENNOSIDES-DOCUSATE SODIUM 1 EACH TAB PO SCH (21:38)
--- NOTE | 2018-07-08 22:17 | PN ---
PROGRESS NOTE Patient is seen for followup for hypercalcemia and acute kidney injury. She is currently stable and feels much better. Her calcium has decreased significantly. Patient is scheduled for intramedullary nailing of her right femur. On examination this morning, when patient was seen, blood pressure was 142/73, heart rate 70 per minute. She is afebrile. EXAMINATION OF THE HEART: S1, S2. EXAMINATION OF LUNGS: Bilateral breath sounds are heard. ABDOMEN: Soft, non-tender. Examination of lower extremities shows no significant edema. IN[employer]IC[employer]ER exam is grossly intact. Labs show sodium 138, potassium 4.3, chloride 111, BUN 13, serum creatinine 1.27, hemoglobin 12.1 g/dL, calcium 9.9. ASSESSMENT: 1. Acute kidney injury secondary to hypercalcemia, currently improved. 2. Hypercalcemia secondary to malignancy and also secondary to hyperparathyroidism, as the PTH was significantly elevated at 101 for a calcium of around 13 when the PTH was drawn. Patient is scheduled for a parathyroid scan today. 3. Right lung mass, status post biopsy. Pathology is currently pending. PLAN: Continue IV fluids. Follow up on nuclear medicine parathyroid scan to rule out hyperparathyroidism. MMODL / IJN: [id number] /
[2018-07-08] MEDS: MELATONIN 3 MG TABLET PO SCH (23:20)
[2018-07-08] MEDS: ceFAZolin IN SWFI 2 GM/20 ML SYRINGE IVP SCH (23:22)
[2018-07-09 05:52] LABS: Glucose,Whole Blood 121 mg/dL (75-99)
[2018-07-09] MEDS: HYDROcodone/APAP 10-325MG 1 EACH TAB PO PRN ×4 (07:04→19:06)
[2018-07-09] MEDS: PANTOPRAZOLE 40 MG TABLET PO SCH ×2 (07:04→19:11)
[2018-07-09] MEDS: INSULIN ASPART 100 UNIT/ML 1 ML 10 ML VIAL SQ SCH ×4 (07:05→21:04)
[2018-07-09] MEDS: LACTATED RINGERS 1,000 ML IV SCH ×2 (07:07→20:07)
[2018-07-09] MEDS: HYDROmorphone 1 MG/ML 1 ML SYRINGE IVP PRN ×5 (07:26→23:26)
--- NOTE | 2018-07-09 08:35 | FL ---
Fluoroscopy INDICATION: Pain FINDINGS: Fluoroscopy time: 2 minutes 55 seconds. Images obtained: 7. IMPRESSIONS: 1. Documentation of fluoroscopy.
[2018-07-09] MEDS: DOCUSATE 100 MG CAP PO SCH ×2 (09:38→20:04)
[2018-07-09] MEDS: DOXYCYCLINE 100 MG CAP PO SCH ×2 (09:38→21:47)
[2018-07-09] MEDS: CHOLECALCIFEROL 1,000 UNIT TAB PO SCH (09:38)
[2018-07-09] MEDS: IPRATROPIUM-ALBUTEROL 3 ML NEB INHALATION SCH ×4 (10:51→19:54)
[2018-07-09 11:06] LABS: Calcium 9.4 mg/dL (8.4-10.2); Potassium 4.1 mmol/L (3.5-5.1)
[2018-07-09 11:50] LABS: Glucose,Whole Blood 113 mg/dL (75-99)
--- NOTE | 2018-07-09 12:11 | P.PN ---
Subjective Progress Note Date: 07/09/18 Principal diagnosis: Metastatic lesion right femur. Metastatic lung cancer. This is a 68-year-old female with metastatic lung cancer who was seen with complaint of right hip pain. She was found to have a large lesion in the right proximal femur with lateral cortical invasion. It is recommended she have prophylactic intramedullary nailing of the hip and femur. She is postop day 1 status post intramedullary nailing with long Synthes recon nail right hip. She is doing fairly well from an orthopedic standpoint. She states that her right hip and thigh pain is already improved. She states that she has decided to not have any chemotherapy or radiation treatment. Objective - Vital Signs Vital signs: Vital Signs Temp 98.2 F 07/09/18 08:00 Pulse 76 07/09/18 11:07 Resp 18 07/09/18 08:00 BP 143/74 07/09/18 08:00 Pulse Ox 98 07/09/18 08:00 Intake & Output 07/08/18 07/09/18 07/09/18 18:59 06:59 18:59 Intake Total 751 300 Output Total 102 650 1 Balance 649 -350 -1 Weight 95.8 kg 98.5 kg Intake: IV 751 Intake, IV Titration 300 Amount Lactated Ringers 1,000 ml 300 @ 100 mls/hr IV .Q10H [facility] Rx#:[id number] Output: Urine 650 Stool 2 1 Estimated Blood Loss 100 Other: Voiding Method Bedside Commode Bedside Commode - Exam This is a pleasant 60-year-old female in no acute distress. She is alert and oriented 3. Exam of the right lower extremity reveals that her dressing is clean, dry and intact. She has mild to moderate swelling to her knee and lower leg. +1 pitting edema to the lower leg. She has full foot and ankle motion without difficulty or pain. Neurovascular status to the lower extremity is intact. - Labs CBC & Chem 7: 07/08/18 19:56 07/09/18 10:28 Labs: Abnormal Lab Results - Last 24 Hours (Table) 07/08/18 07/09/18 07/09/18 Range/Units 19:56 05:51 10:28 WBC 12.3 H (3.8-10.6) k/uL RDW 15.6 H (11.5-15.5) % Neutrophils # 10.0 H (1.3-7.7) k/uL Chloride 109 H (98-107) mmol/L Creatinine 1.15 H (0.52-1.04) mg/dL Glucose 117 H (74-99) mg/dL POC Glucose (mg/dL) 121 H (75-99) mg/dL 07/09/18 Range/Units 11:43 WBC (3.8-10.6) k/uL RDW (11.5-15.5) % Neutrophils # (1.3-7.7) k/uL Chloride (98-107) mmol/L Creatinine (0.52-1.04) mg/dL Glucose (74-99) mg/dL POC Glucose (mg/dL) 113 H (75-99) mg/dL Assessment and Plan (1) Osteolytic lesion due to metastasis Current Visit: Yes Status: Acute Code(s): C79.51 - SECONDARY MALIGNANT NEOPLASM OF BONE SNOMED Code(s): 68547511 (2) Lung mass Current Visit: Yes Status: Acute Priority: High Code(s): R91.8 - OTHER NONSPECIFIC ABNORMAL FINDING OF LUNG FIELD SNOMED Code(s): 860143863 (3) Lytic bone lesion of right femur Current Visit: Yes Status: Acute Code(s): M89.9 - DISORDER OF BONE, UNSPECIFIED SNOMED Code(s): 10490774 Plan: The clinical findings are discussed with the patient. She is toe-touch weightbearing to the right lower extremity with walker. She may be discharged to home when cleared medically. She is to follow-up in 3 weeks.
[2018-07-09] MEDS: traMADol 50 MG TAB PO PRN ×2 (13:03→20:04)
[2018-07-09] MEDS: ceFAZolin IN SWFI 2 GM/20 ML SYRINGE IVP SCH (13:04)
--- NOTE | 2018-07-09 13:27 | P.PN ---
Subjective Progress Note Date: 07/09/18 Principal diagnosis: Right upper lobe cavitating mass, status post bronchoscopy and transbronchial needle aspirate biopsy A 68-year-old female patient, a chronic smoker with known history of COPD diabetes hypertension hyperlipidemia, presented to the hospital because of a worsening right hip pain. This pain started approximately 2 weeks ago to the point where the patient was unable to put any weight on her right hip. She was initially seen by cardiology. As part of her workup, she had a chest x-ray that abnormal and following that she underwent a CAT scan of the chest that showed a large cavitating thick-walled lesion in the right upper lobe in addition to right hilar and mediastinal mass and extensive mediastinal lymphadenopathy consistent with primary bronchogenic cancer, likely of a squamous cell type due to the extensive cavitation seen in the right upper lobe. The CAT scan also showed pulmonary nodules on the left that were subcentimeter. These were however consistent with metastatic disease knowing that the patient has several metastatic right sided pulmonary lesions also. X- ray of the hip was also completed and the patient had a large destructive lesion in the proximal femur suggestive of malignancy/metastatic involvement. The patient came into the hospital because of the right hip pain and shortness of breath and generalized weakness. Electrodes were done and the patient's creatinine was at 1.4 and a calcium level at a time of admission was 14.4. The patient was given IV fluids. The patient was given Zomig and they're monitoring the calcium level for now. She has chronic exertional dyspnea. She has a chronic congested cough. No hemoptysis. No pleurisy. No previous TB exposure. She has [id number] smoking history. The patient will be seen by hematology oncology. Altered mentation. No change in the voice characteristics. The patient is seen again today 07/05/2018 in follow-up on the selective care unit. She is currently awake and alert in no acute distress. She is breathing a bit easier today as compared to yesterday. He is maintaining good O2 saturations in the 90s on room air. She's been afebrile. Hemodynamically stable. Whole-body bone scan revealed no areas of suspicion suggestive of metastasis. X-ray of the right hip revealed a persistence of a lytic lesion within the proximal right mid diaphyseal femur. Orthopedics is recommending a prophylactic intramedullary nailing of the right hip and femur. This is tentatively scheduled for July 08. She is scheduled for bronchoscopy with FNA and core biopsy of the right mediastinal mass today of the with Dr. Louis. On 07/06/2018 and I'm seeing this patient for a follow-up. Doing well. No respiratory difficulties. Bronchoscopy was done yesterday. No complications. Patient was seen by or so. The patient will require into maternity nailing of the right hip. This will be done on Sunday by Dr. Alvarez. No nausea. No vomiting. No headaches. No altered mentation. Pain is under good control. Tolerating diet. No other issues for now. On 07/07/2018, I'm seeing this patient for a follow-up. Doing well. No complaints. No nausea or vomiting. No chest pain. The right hip pain is still present specially when the patient stands up or walks or applies weight on the involved joints. The plan is to perform intramedullary pending of the joint tomorrow. This will stabilize the joint and decrease the risk of fractures. We'll still awaiting the final results from the bronchoscopy and the needle aspirate. The patient is otherwise doing well. She has no specific complaints. On 07/08/2018 patient seen in follow-up on selective care unit. She is resting in bed, she scheduled for surgery intramedullary nailing of the hip. She denies any dyspnea, lung sounds are positive for wheezes and scattered rhonchi. Room air pulse ox is 95%, patient is afebrile, hemodynamically stable, transbronchial needle biopsy report is pending. No chest pain no worsening dyspnea at this time. On 07/09/2018 she seen in follow-up on selective care unit. He is postop day 1 post IT nail placement in the right femur. She is sitting up in the recliner, some [id number] discomfort in the right hip but no acute distress. Denies any dyspnea, lung sounds reveal some scattered rhonchi and appears to be less bronchospastic on today's exam. 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 Objective - Vital Signs Vital signs: Vital Signs Temp 98.2 F 07/09/18 08:00 Pulse 76 07/09/18 11:07 Resp 18 07/09/18 08:00 BP 143/74 07/09/18 08:00 Pulse Ox 98 07/09/18 08:00 Intake & Output 07/08/18 07/09/18 07/09/18 18:59 06:59 18:59 Intake Total 751 300 Output Total 102 650 1 Balance 649 -350 -1 Weight 95.8 kg 98.5 kg Intake: IV 751 Intake, IV Titration 300 Amount Lactated Ringers 1,000 ml 300 @ 100 mls/hr IV .Q10H [facility] Rx#:[id number] Output: Urine 650 Stool 2 1 Estimated Blood Loss 100 Other: Voiding Method Bedside Commode Bedside Commode - Exam Gen. appearance, comfortable no acute distress. On room air. Head exam was generally normal. There was no scleral icterus or corneal arcus. Mucous membranes were moist. Neck was supple and without jugular venous distension, thyromegaly, or carotid bruits. Carotids were easily palpable bilaterally. There was no adenopathy. Lungs sounds are diminished bilaterally with a few scattered rhonchi no wheezes Cardiac exam revealed the PMI to be normally situated and sized. The rhythm was regular and no extrasystoles were noted during several minutes of auscultation. The first and second heart sounds were normal and physiologic splitting of the second heart sound was noted. There were no murmurs, rubs, clicks, or gallops. Abdominal exam revealed normal bowel sounds. The abdomen was soft, non-tender, and without masses, organomegaly, or appreciable enlargement of the abdominal aorta. Examination of the extremities revealed easily palpable radial, femoral and pedal pulses. There was no cyanosis, clubbing or edema. Neurologically the patient is awake and alert and there is no focal neurological deficit. Gait is off as the patient is having right hip pain and she is unable to bear weight on the right hip. Examination of the skin revealed no evidence of significant rashes, suspicious appearing nevi or other concerning lesions. There is a scar in the upper back posteriorly related to a previous resection of a malignant melanoma. - Labs CBC & Chem 7: 07/08/18 19:56 07/09/18 10:28 Labs: Abnormal Lab Results - Last 24 Hours (Table) 07/08/18 07/09/18 07/09/18 Range/Units 19:56 05:51 10:28 WBC 12.3 H (3.8-10.6) k/uL RDW 15.6 H (11.5-15.5) % Neutrophils # 10.0 H (1.3-7.7) k/uL Chloride 109 H (98-107) mmol/L Creatinine 1.15 H (0.52-1.04) mg/dL Glucose 117 H (74-99) mg/dL POC Glucose (mg/dL) 121 H (75-99) mg/dL 07/09/18 Range/Units 11:43 WBC (3.8-10.6) k/uL RDW (11.5-15.5) % Neutrophils # (1.3-7.7) k/uL Chloride (98-107) mmol/L Creatinine (0.52-1.04) mg/dL Glucose (74-99) mg/dL POC Glucose (mg/dL) 113 H (75-99) mg/dL Assessment and Plan Plan: Assessment: 1 right upper lobe cavitating mass with thick walled characteristics and nodular borders in addition to right hilar and mediastinal lymphadenopathy and a 7.5 cm soft tissue mass with extensive mediastinal lymphadenopathy consistent with metastatic lung carcinoma, highly suspect 7 cell carcinoma based on the extensive cavitation seen he had noted the patient also has pulmonary nodules bilaterally more so on the right. The patient is post bronchoscopy and transbronchial needle aspirate of the paratracheal mass and the final path was positive for poorly differentiated squamous cell carcinoma 2 right hip metastatic involvement with secondary pain and inability to walk and weightbearing, currently awaiting a surgical intervention and nailing of the hip 3 acute hypercalcemia secondary to metastatic carcinoma, this is secondary to skeletal involvement and skeletal metastases, improving and the calcium level is improved and currently is normalized down to 10.0. 4 COPD 5 chronic smoker 6 remote history of melanoma, resected 7 hypertension 8 hyperlipidemia 9 smoker Plan: We shared the results of the transbronchial needle biopsy with the patient, oncology is following and they are to meet with the patient and discuss possible treatment options. Patient denies any worsening dyspnea, her right hip pain is reasonably controlled with pain medications. Less bronchospastic, still somewhat congested. Continue with nebulized bronchodilators. I performed a history & physical examination of the patient and discussed their management with my nurse practitioner, Nicole Tyson. I reviewed the nurse practitioner's note and agree with the documented findings and plan of care. Lung sounds are positive for some scattered rhonchi. The findings and the impression was discussed with the patient. I attest to the documentation by the nurse practitioner. Time with Patient: Less than 30
--- NOTE | 2018-07-09 14:01 | P.PN ---
Subjective Progress Note Date: 07/09/18 Principal diagnosis: lung mass, hip pain Pt seen today in f/u. She has voiced concerns about chemo. She has right hip pain, states it is controlled on urrent analgesics, has no other c/o on a 14 point ROS. Objective - Vital Signs Vital signs: Vital Signs Temp 98.2 F 07/09/18 08:00 Pulse 76 07/09/18 11:07 Resp 18 07/09/18 08:00 BP 143/74 07/09/18 08:00 Pulse Ox 98 07/09/18 08:00 Intake & Output 07/08/18 07/09/18 07/09/18 18:59 06:59 18:59 Intake Total 751 300 Output Total 102 650 1 Balance 649 -350 -1 Weight 95.8 kg 98.5 kg Intake: IV 751 Intake, IV Titration 300 Amount Lactated Ringers 1,000 ml 300 @ 100 mls/hr IV .Q10H [facility] Rx#:[id number] Output: Urine 650 Stool 2 1 Estimated Blood Loss 100 Other: Voiding Method Bedside Commode Bedside Commode - Constitutional General appearance: Present: cooperative, no acute distress, obese - EENT Eyes: Present: anicteric sclerae, EOMI ENT: Present: hearing grossly normal - Respiratory Respiratory: bilateral: diminished - Cardiovascular Rhythm: regular Heart sounds: normal: S1, S2 - Peripheral edema leg Peripheral Edema: bilateral: 1+ - Gastrointestinal General gastrointestinal: Present: normal bowel sounds, soft. Absent: absent bowel sounds, decreased bowel sounds, distended, hepatomegaly, hyperactive bowel sounds, organomegaly, rigid, scaphoid, splenomegaly, tenderness, umbilical hernia, ventral hernia - Neurologic Neurologic: Present: CNII-XII intact - Musculoskeletal Musculoskeletal: Present: strength equal bilaterally - Psychiatric Psychiatric: Present: A&O x's 3, appropriate affect, intact judgment & insight - Labs CBC & Chem 7: 07/08/18 19:56 07/09/18 10:28 Labs: Abnormal Lab Results - Last 24 Hours (Table) 07/08/18 07/09/18 07/09/18 Range/Units 19:56 05:51 10:28 WBC 12.3 H (3.8-10.6) k/uL RDW 15.6 H (11.5-15.5) % Neutrophils # 10.0 H (1.3-7.7) k/uL Chloride 109 H (98-107) mmol/L Creatinine 1.15 H (0.52-1.04) mg/dL Glucose 117 H (74-99) mg/dL POC Glucose (mg/dL) 121 H (75-99) mg/dL 07/09/18 Range/Units 11:43 WBC (3.8-10.6) k/uL RDW (11.5-15.5) % Neutrophils # (1.3-7.7) k/uL Chloride (98-107) mmol/L Creatinine (0.52-1.04) mg/dL Glucose (74-99) mg/dL POC Glucose (mg/dL) 113 H (75-99) mg/dL Assessment and Plan (1) Lung mass Narrative/Plan: S/P bronch and biopsy, pend pathology Current Visit: Yes Status: Acute Priority: High Code(s): R91.8 - OTHER NONSPECIFIC ABNORMAL FINDING OF LUNG FIELD SNOMED Code(s): 023983570 (2) Hypercalcemia Narrative/Plan: Suspect secondary to malignancy. Treated with bisphosphonate therapy and hydration. Ca++ normal today. Bone scan was negative for metastatic disease. Current Visit: Yes Status: Acute Priority: High Code(s): E83.52 - HYPERCALCEMIA SNOMED Code(s): 95228803 (3) Hip pain Narrative/Plan: Persistent, no evidence of malignancy on bone scan. Cont analgesics and titrate to comfort Current Visit: Yes Status: Acute Priority: High Code(s): M25.559 - PAIN IN UNSPECIFIED HIP SNOMED Code(s): 17677885 Plan: Patient's feelings are pretty strong regarding chemotherapy, she does not want to have chemotherapy. This is based on her experiences with her family members who have had cancer and chemotherapy in the past. Dr. Byrd explained to the patient the suspected diagnosis of lung cancer and current workup is not showing evidence of metastatic disease at this time. He discussed that in certain situations limited stage disease can be cured. He reviewed the importance of completion of workup so that prognosis can be estimated. This information would provide the patient and her family with some sort of comfort in understanding what can be expected or anticipated in the future. We also encouraged patient to consider that treatments for cancer have changed dramatically, including the use of nonchemo agents including immunotherapy and targeted biologic agents. Also, completing work up can help with pain control as well as symptom management (ie: symptomatic brain mets). Pt will discuss with her family. Additional testing at pt discretion. All questions answered. 1358: On revisiting the pt chart this afternoon, it appears an addendum was added to bone scan, there is a suspicious area that was treated by Orthopedics yesterday afternoon. Nailing was done with bone fragments sent for path. Will have to revisit pt and family in AM with this updated info. Path specimen will be sent for biomarker/genetic testing as it appears she has metastatic disease. Attests: I have performed H&P and developed impression and plan of pt care, discussed with dictator. I agree with dictated note, documented as a scribe.
--- NOTE | 2018-07-09 17:18 | P.PN ---
Subjective Progress Note Date: 07/09/18 Progress note being dictated for Dr. Rocha. Interval history:Patient is admitted for hypercalcemia which is improving at this point of time patient received the solids chronic acid yesterday. Patient is on IV fluids which will be continued creatinine improved to 1.4. Patient is having a lot of hip pain patient has a lesion in the hip area for which patient the will go for prophylactic Surgical procedure for her right hip patient is to have osteolytic lesion due to metastasis primary being lung cancer patient is undergoing bronchoscopy and biopsy today. A she is comparing of severe pain in the hip area but unable to tolerate Dilaudid very well. Patient will be started on tramadol can you with Tylenol. We cannot use morphine because of her poor renal function bone scan was done yesterday which did not show any other significant bony lesions. 07/06/2018 Patient's hypercalcemia improved patient is still having pain in the right leg and patient will undergo intramedullary nailing tomorrow patient had a biopsy of lung mass yesterday. And discussed the patient regarding surgical procedure for her. Had serum calcium and serum creatinine improved Hip. 07/07/2018 Complaining of pain in the right hip area patient may have some bronchitis I'll start her on doxycycline. Patient will undergo parathyroid scan as her PTH is very high. 07/08/2018 patient unable to complete parathyroid scan. Awaiting intramedullary nailing today. Calcium and continues to improve down to 9.9. Creatinine 1.27. MRI of brain, patient declined. Positive cough sometimes productive. Maintaining O2 sats of 95% on room air. Afebrile. Bronchial biopsy report pending. 07/09/18 status post IM nailing, postop day 1. Right hip pain currently controlled. 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 Met with oncology earlier today. Constitutional: Denied any fatigue denied any fever. Cardio vascular: denied any chest pain, palpitations Gastrointestinal denied any nausea vomiting Pulmonary: Denied any shortness of breath cough Neurologic denied any new focal deficits Active Medications Acetaminophen (Tylenol Tab) 650 mg PO Q6HR PRN PRN Reason: Fever and/ or Pain Hydrocodone Bitart/Acetaminophen ([place] 10) 1 each PO Q4H PRN PRN Reason: Pain Last Admin: 07/08/18 08:28 Dose: 1 each Albuterol/Ipratropium (Duoneb 0.5 Mg-3 Mg/3 Ml Soln) 3 ml INHALATION RT-QID [facility] Last Admin: 07/08/18 15:35 Dose: Not Given Albuterol/Ipratropium (Duoneb 0.5 Mg-3 Mg/3 Ml Soln) 3 ml INHALATION RT-Q2H PRN PRN Reason: Shortness Of Breath Or Wheezing Atorvastatin Calcium (Lipitor) 10 mg PO [facility] Last Admin: 07/07/18 20:51 Dose: 10 mg Budesonide/Formoterol Fumarate (Symbicort 160-4.5 Mcg Inhaler) 2 puff INHALATION RT-[facility] Last Admin: 07/07/18 20:02 Dose: 2 puff Cholecalciferol (Vitamin D3) 2,000 unit PO DAILY [facility] Last Admin: 07/07/18 07:39 Dose: 2,000 unit Docusate Sodium (Colace) 100 mg PO BID [facility] Last Admin: 07/07/18 20:51 Dose: 100 mg Doxycycline Monohydrate (Vibramycin) 100 mg PO BID [facility] Last Admin: 07/08/18 08:29 Dose: 100 mg Hydromorphone HCl (Dilaudid) 0.5 mg IVP Q4HR PRN PRN Reason: Breakthrough Pain Last Admin: 07/08/18 11:41 Dose: 0.5 mg Sodium Chloride (Saline 0.9%) 1,000 mls @ 50 mls/hr IV .Q20H [facility] Last Admin: 07/07/18 17:58 Dose: Not Given Insulin Aspart (Novolog) 0 unit SQ [facility]; Protocol Last Admin: 07/08/18 06:16 Dose: Not Given Melatonin (Melatonin) 6 mg PO [facility] Last Admin: 07/07/18 20:52 Dose: 6 mg Naloxone HCl (Narcan) 0.2 mg IV Q2M PRN PRN Reason: Opioid Reversal Ondansetron HCl (Zofran) 4 mg IVP Q6HR PRN PRN Reason: Nausea And Vomiting Pantoprazole Sodium (Protonix) 40 mg PO AC-BID [facility] Last Admin: 07/08/18 06:16 Dose: Not Given Tramadol HCl (Ultram) 50 mg PO QID PRN PRN Reason: Mild Pain Last Admin: 07/07/18 20:51 Dose: 50 mg Objective - Vital Signs Vital signs: Vital Signs Temp 98.2 F 07/09/18 08:00 Pulse 78 07/09/18 16:09 Resp 18 07/09/18 08:00 BP 143/74 07/09/18 08:00 Pulse Ox 98 07/09/18 08:00 Intake & Output 07/08/18 07/09/18 07/09/18 18:59 06:59 18:59 Intake Total 751 300 Output Total 102 650 1 Balance 649 -350 -1 Weight 95.8 kg 98.5 kg Intake: IV 751 Intake, IV Titration 300 Amount Lactated Ringers 1,000 ml 300 @ 100 mls/hr IV .Q10H [facility] Rx#:[id number] Output: Urine 650 Stool 2 1 Estimated Blood Loss 100 Other: Voiding Method Bedside Commode Bedside Commode - Exam GENERAL: The patient is sitting up in chair, alert and oriented x3, no acute distress. HEENT: Pupils are round and equally reacting to light. EOMI. No scleral icterus. No conjunctival pallor. Normocephalic, atraumatic. CARDIOVASCULAR: S1 and S2 present. No murmurs, rubs, or gallops. PULMONARY: Bilateral bases diminished, scattered rhonchi, no wheezing ABDOMEN: Soft, nontender, nondistended, normoactive bowel sounds. No palpable organomegaly. MUSCULOSKELETAL: No joint swelling or deformity. EXTREMITIES: No cyanosis, clubbing, or pedal edema. NEUROLOGICAL: Gross neurological examination did not reveal any focal deficits. SKIN: No rashes. - Labs CBC & Chem 7: 07/08/18 19:56 07/09/18 10:28 Labs: Abnormal Lab Results - Last 24 Hours (Table) 07/08/18 07/09/18 07/09/18 Range/Units 19:56 05:51 10:28 WBC 12.3 H (3.8-10.6) k/uL RDW 15.6 H (11.5-15.5) % Neutrophils # 10.0 H (1.3-7.7) k/uL Chloride 109 H (98-107) mmol/L Creatinine 1.15 H (0.52-1.04) mg/dL Glucose 117 H (74-99) mg/dL POC Glucose (mg/dL) 121 H (75-99) mg/dL 07/09/18 Range/Units 11:43 WBC (3.8-10.6) k/uL RDW (11.5-15.5) % Neutrophils # (1.3-7.7) k/uL Chloride (98-107) mmol/L Creatinine (0.52-1.04) mg/dL Glucose (74-99) mg/dL POC Glucose (mg/dL) 113 H (75-99) mg/dL Assessment and Plan Assessment: -Acute hypercalcemia: possibly Secondary to malignancy: Bone scan did not show any other lesions. Calcium normalized. 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 - Metastatic Lung cancer, status post biopsy reporting poorly differentiated squamous cell CA -Hypertension -Hyperlipidemia -COPD, acute exacerbation - nicotine dependence Plan: Continue on current medication regime ,monitoring and symptomatic treatment. Maintain nebulized bronchodilators. Oncology discussing options. Prognosis guarded given multiple complex medical issues. Discharge planning in progress for tomorrow. The impression and plan of care has been dictated as directed. : I performed a history and examination of this patient, discussed the same with the dictator. I agree with the dictator's note ,documented as a scribe. Any additional findings or plans will be noted.
[2018-07-09 17:31] LABS: Glucose,Whole Blood 122 mg/dL (75-99)
[2018-07-09] MEDS ORDERED: FUROSEMIDE 20 MG TAB PO STA (19:23)
[2018-07-09] MEDS: SYMBICORT 160-4.5 MCG INHALER INHALATION SCH (19:54)
--- NOTE | 2018-07-09 19:55 | PN ---
PROGRESS NOTE Patient is seen for followup for acute kidney injury and hypercalcemia. Her renal function continues to improve. Serum creatinine is now down to 1.15. However, patient appears mildly volume-overloaded. She did have her surgery yesterday. Patient had intramedullary nailing of the right hip. On examination today, blood pressure this morning was , heart rate of 78 per minute. Patient is afebrile. EXAMINATION OF THE HEART: S1, S2. EXAMINATION OF LUNGS: Bilateral breath sounds are heard. Decreased breath sounds at the bases. ABDOMEN: Soft, non-tender. Examination of lower extremities edema 1+ bilaterally. [employer] exam is grossly intact. Labs show sodium 137, potassium 4.1, chloride 109, BUN 14, serum creatinine 1.15. Calcium is 9.4. ASSESSMENT: 1. Acute kidney injury secondary to hypercalcemia, currently improved. 2. Hypercalcemia secondary to malignancy and hyperparathyroidism, as PTH was elevated at about 105 with a calcium of around 13. A parathyroid nuclear scan will be ordered down the road. 3. A lytic lesion in the right hip, status post intramedullary nailing. 4. Volume overload. I will discontinue all IV fluids. We will give a dose of Lasix, which can be given p.o. Repeat labs in a.m. MMODL / IJN: [id number] /
[2018-07-09] MEDS: ATORVASTATIN 10 MG TAB PO SCH (20:04)
[2018-07-09] MEDS: SENNOSIDES-DOCUSATE SODIUM 1 EACH TAB PO SCH (20:04)
[2018-07-09] MEDS: MELATONIN 3 MG TABLET PO SCH (20:04)
[2018-07-09 20:48] LABS: Glucose,Whole Blood 128 mg/dL (75-99)
[2018-07-10] MEDS: HYDROcodone/APAP 10-325MG 1 EACH TAB PO PRN ×5 (00:37→21:04)
[2018-07-10] MEDS: SODIUM CHLORIDE 0.9% 1,000 ML IV SCH (01:37)
[2018-07-10] MEDS: traMADol 50 MG TAB PO PRN ×4 (01:42→18:00)
[2018-07-10] MEDS: HYDROmorphone 1 MG/ML 1 ML SYRINGE IVP PRN ×7 (02:35→23:19)
[2018-07-10 06:08] LABS: Glucose,Whole Blood 87 mg/dL (75-99)
[2018-07-10] MEDS: INSULIN ASPART 100 UNIT/ML 1 ML 10 ML VIAL SQ SCH ×4 (06:21→21:05)
[2018-07-10] MEDS: PANTOPRAZOLE 40 MG TABLET PO SCH ×2 (06:31→18:00)
[2018-07-10 07:17] LABS: Basophils % (A) 0 %; Eosinophils # (A) 0.8 k/uL (0-0.7); Eosinophils % (A) 8 %; HCT 28.9 % (34.0-46.0); Lymphocytes # (A) 1.5 k/uL (1.0-4.8); Lymphocytes % (A) 15 %; MCH 28.7 pg (25.0-35.0); MCHC 31.8 g/dL (31.0-37.0); MCV 90.3 fL (80.0-100.0); Mean Platelet Volume 6.9; Monocytes # (A) 0.5 k/uL (0-1.0); Monocytes % (A) 5 %; Neutrophils # (A) 7.1 k/uL (1.3-7.7); Neutrophils % (A) 70 %; Platelet Count 408 k/uL (150-450); RDW 15.9 % (11.5-15.5); WBC 10.1 k/uL (3.8-10.6)
[2018-07-10 07:34] LABS: HGB 9.2 gm/dL (11.4-16.0)
[2018-07-10 07:40] LABS: Calcium 9.3 mg/dL (8.4-10.2); Potassium 4.2 mmol/L (3.5-5.1)
[2018-07-10] MEDS: IPRATROPIUM-ALBUTEROL 3 ML NEB INHALATION SCH ×4 (08:17→19:57)
[2018-07-10] MEDS: CHOLECALCIFEROL 1,000 UNIT TAB PO SCH (09:17)
[2018-07-10] MEDS: DOXYCYCLINE 100 MG CAP PO SCH ×2 (09:17→21:38)
[2018-07-10] MEDS: DOCUSATE 100 MG CAP PO SCH ×2 (09:18→21:04)
--- NOTE | 2018-07-10 11:04 | P.PN ---
Subjective Progress Note Date: 07/10/18 Principal diagnosis: Metastatic lesion right femur. Metastatic lung cancer. This is a 68-year-old female with metastatic lung cancer who was seen with complaint of right hip pain. She was found to have a large lesion in the right proximal femur with lateral cortical invasion. It is recommended she have prophylactic intramedullary nailing of the hip and femur. She is postop day 2 status post intramedullary nailing with long Synthes recon nail right hip. She is doing fairly well from an orthopedic standpoint. She states that her right hip and thigh pain is already improved. She states that she has decided to not have any chemotherapy or radiation treatment. Objective - Vital Signs Vital signs: Vital Signs Temp 97.0 F L 07/10/18 08:00 Pulse 76 07/10/18 08:27 Resp 17 07/10/18 08:00 BP 141/61 07/10/18 08:00 Pulse Ox 93 L 07/10/18 08:00 Intake & Output 07/09/18 07/10/18 07/10/18 18:59 06:59 18:59 Intake Total 540 138 Output Total 1653 1300 Balance -1113 -1300 138 Weight 92.4 kg Intake: IV 20 Invasive Line 4 20 Oral 540 118 Output: Urine 1650 1300 Stool 3 Other: Voiding Method Bedside Commode Bedside Commode # Voids 1 2 - Exam This is a pleasant 60-year-old female in no acute distress. She is alert and oriented 3. Exam of the right lower extremity reveals that her incisions look good. No erythema or ecchymosis. Dermabond tape is intact. No active drainage. She has mild to moderate swelling to her knee and lower leg. +1 pitting edema to the lower leg. She has full foot and ankle motion without difficulty or pain. Neurovascular status to the lower extremity is intact. - Labs CBC & Chem 7: 07/10/18 06:32 07/10/18 06:32 Labs: Abnormal Lab Results - Last 24 Hours (Table) 07/09/18 07/09/18 07/09/18 Range/Units 10:28 11:43 17:18 RBC (3.80-5.40) m/uL Hgb (11.4-16.0) gm/dL Hct (34.0-46.0) % RDW (11.5-15.5) % Eosinophils # (0-0.7) k/uL Sodium (137-145) mmol/L Chloride 109 H (98-107) mmol/L Creatinine 1.15 H (0.52-1.04) mg/dL Glucose 117 H (74-99) mg/dL POC Glucose (mg/dL) 113 H 122 H (75-99) mg/dL 07/09/18 07/10/18 07/10/18 Range/Units 20:46 06:32 06:32 RBC 3.20 L (3.80-5.40) m/uL Hgb 9.2 L D (11.4-16.0) gm/dL Hct 28.9 L (34.0-46.0) % RDW 15.9 H (11.5-15.5) % Eosinophils # 0.8 H (0-0.7) k/uL Sodium 136 L (137-145) mmol/L Chloride (98-107) mmol/L Creatinine 1.33 H (0.52-1.04) mg/dL Glucose (74-99) mg/dL POC Glucose (mg/dL) 128 H (75-99) mg/dL Assessment and Plan (1) Osteolytic lesion due to metastasis Current Visit: Yes Status: Acute Code(s): C79.51 - SECONDARY MALIGNANT NEOPLASM OF BONE SNOMED Code(s): 72097935 (2) Lung mass Current Visit: Yes Status: Acute Priority: High Code(s): R91.8 - OTHER NONSPECIFIC ABNORMAL FINDING OF LUNG FIELD SNOMED Code(s): 694102517 (3) Lytic bone lesion of right femur Current Visit: Yes Status: Acute Code(s): M89.9 - DISORDER OF BONE, UNSPECIFIED SNOMED Code(s): 39520316 Plan: The clinical findings are discussed with the patient. She is toe-touch weightbearing to the right lower extremity with walker. She may be discharged to home when cleared medically. She is to follow-up in 3 weeks.
[2018-07-10] MEDS ORDERED: FUROSEMIDE 10 MG/ML 2 ML VIAL IV ONE (11:26)
[2018-07-10 12:23] LABS: Glucose,Whole Blood 124 mg/dL (75-99)
--- NOTE | 2018-07-10 12:39 | P.PN ---
Subjective Progress Note Date: 07/10/18 Principal diagnosis: Right upper lobe cavitating mass, status post bronchoscopy and transbronchial needle aspirate biopsy A 68-year-old female patient, a chronic smoker with known history of COPD diabetes hypertension hyperlipidemia, presented to the hospital because of a worsening right hip pain. This pain started approximately 2 weeks ago to the point where the patient was unable to put any weight on her right hip. She was initially seen by cardiology. As part of her workup, she had a chest x-ray that abnormal and following that she underwent a CAT scan of the chest that showed a large cavitating thick-walled lesion in the right upper lobe in addition to right hilar and mediastinal mass and extensive mediastinal lymphadenopathy consistent with primary bronchogenic cancer, likely of a squamous cell type due to the extensive cavitation seen in the right upper lobe. The CAT scan also showed pulmonary nodules on the left that were subcentimeter. These were however consistent with metastatic disease knowing that the patient has several metastatic right sided pulmonary lesions also. X- ray of the hip was also completed and the patient had a large destructive lesion in the proximal femur suggestive of malignancy/metastatic involvement. The patient came into the hospital because of the right hip pain and shortness of breath and generalized weakness. Electrodes were done and the patient's creatinine was at 1.4 and a calcium level at a time of admission was 14.4. The patient was given IV fluids. The patient was given Zomig and they're monitoring the calcium level for now. She has chronic exertional dyspnea. She has a chronic congested cough. No hemoptysis. No pleurisy. No previous TB exposure. She has [id number] smoking history. The patient will be seen by hematology oncology. Altered mentation. No change in the voice characteristics. The patient is seen again today 07/05/2018 in follow-up on the selective care unit. She is currently awake and alert in no acute distress. She is breathing a bit easier today as compared to yesterday. He is maintaining good O2 saturations in the 90s on room air. She's been afebrile. Hemodynamically stable. Whole-body bone scan revealed no areas of suspicion suggestive of metastasis. X-ray of the right hip revealed a persistence of a lytic lesion within the proximal right mid diaphyseal femur. Orthopedics is recommending a prophylactic intramedullary nailing of the right hip and femur. This is tentatively scheduled for July 08. She is scheduled for bronchoscopy with FNA and core biopsy of the right mediastinal mass today of the with Dr. Louis. On 07/06/2018 and I'm seeing this patient for a follow-up. Doing well. No respiratory difficulties. Bronchoscopy was done yesterday. No complications. Patient was seen by or so. The patient will require into maternity nailing of the right hip. This will be done on Sunday by Dr. Alvarez. No nausea. No vomiting. No headaches. No altered mentation. Pain is under good control. Tolerating diet. No other issues for now. On 07/07/2018, I'm seeing this patient for a follow-up. Doing well. No complaints. No nausea or vomiting. No chest pain. The right hip pain is still present specially when the patient stands up or walks or applies weight on the involved joints. The plan is to perform intramedullary pending of the joint tomorrow. This will stabilize the joint and decrease the risk of fractures. We'll still awaiting the final results from the bronchoscopy and the needle aspirate. The patient is otherwise doing well. She has no specific complaints. On 07/08/2018 patient seen in follow-up on selective care unit. She is resting in bed, she scheduled for surgery intramedullary nailing of the hip. She denies any dyspnea, lung sounds are positive for wheezes and scattered rhonchi. Room air pulse ox is 95%, patient is afebrile, hemodynamically stable, transbronchial needle biopsy report is pending. No chest pain no worsening dyspnea at this time. On 07/09/2018 she seen in follow-up on selective care unit. He is postop day 1 post IT nail placement in the right femur. She is sitting up in the recliner, some [id number] discomfort in the right hip but no acute distress. Denies any dyspnea, lung sounds reveal some scattered rhonchi and appears to be less bronchospastic on today's exam. 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 On 07/10/2018 patient seen in follow-up on selective care unit. Any acute distress, lung sounds are positive for some scattered rhonchi and wheezes, no worsening dyspnea. Her pulse ox is 93%, vital signs are stable. Right hip pain is fairly well-controlled on current pain medications. Transbronchial needle aspirate biopsy of the paratracheal mass was found to be positive for poorly differentiated squamous cell carcinoma. Medical oncology is following Objective - Vital Signs Vital signs: Vital Signs Temp 97.0 F L 07/10/18 08:00 Pulse 76 07/10/18 12:05 Resp 17 07/10/18 08:00 BP 141/61 07/10/18 08:00 Pulse Ox 93 L 07/10/18 08:00 Intake & Output 07/09/18 07/10/18 07/10/18 18:59 06:59 18:59 Intake Total 540 138 Output Total 1653 1300 Balance -1113 -1300 138 Weight 92.4 kg Intake: IV 20 Invasive Line 4 20 Oral 540 118 Output: Urine 1650 1300 Stool 3 Other: Voiding Method Bedside Commode Bedside Commode # Voids 1 2 - Exam Gen. appearance, comfortable no acute distress. On room air. Head exam was generally normal. There was no scleral icterus or corneal arcus. Mucous membranes were moist. Neck was supple and without jugular venous distension, thyromegaly, or carotid bruits. Carotids were easily palpable bilaterally. There was no adenopathy. Lungs sounds are diminished bilaterally with a few scattered rhonchi no wheezes Cardiac exam revealed the PMI to be normally situated and sized. The rhythm was regular and no extrasystoles were noted during several minutes of auscultation. The first and second heart sounds were normal and physiologic splitting of the second heart sound was noted. There were no murmurs, rubs, clicks, or gallops. Abdominal exam revealed normal bowel sounds. The abdomen was soft, non-tender, and without masses, organomegaly, or appreciable enlargement of the abdominal aorta. Examination of the extremities revealed easily palpable radial, femoral and pedal pulses. There was no cyanosis, clubbing or edema. Neurologically the patient is awake and alert and there is no focal neurological deficit. Gait is off as the patient is having right hip pain and she is unable to bear weight on the right hip. Examination of the skin revealed no evidence of significant rashes, suspicious appearing nevi or other concerning lesions. There is a scar in the upper back posteriorly related to a previous resection of a malignant melanoma. - Labs CBC & Chem 7: 07/10/18 06:32 07/10/18 06:32 Labs: Abnormal Lab Results - Last 24 Hours (Table) 07/09/18 07/09/18 07/10/18 Range/Units 17:18 20:46 06:32 RBC 3.20 L (3.80-5.40) m/uL Hgb 9.2 L D (11.4-16.0) gm/dL Hct 28.9 L (34.0-46.0) % RDW 15.9 H (11.5-15.5) % Eosinophils # 0.8 H (0-0.7) k/uL Sodium (137-145) mmol/L Creatinine (0.52-1.04) mg/dL POC Glucose (mg/dL) 122 H 128 H (75-99) mg/dL 18 07/10/18 Range/Units 06:32 11:46 RBC (3.80-5.40) m/uL Hgb (11.4-16.0) gm/dL Hct (34.0-46.0) % RDW (11.5-15.5) % Eosinophils # (0-0.7) k/uL Sodium 136 L (137-145) mmol/L Creatinine 1.33 H (0.52-1.04) mg/dL POC Glucose (mg/dL) 124 H (75-99) mg/dL Assessment and Plan Plan: Assessment: 1 right upper lobe cavitating mass with thick walled characteristics and nodular borders in addition to right hilar and mediastinal lymphadenopathy and a 7.5 cm soft tissue mass with extensive mediastinal lymphadenopathy consistent with metastatic lung carcinoma, highly suspect 7 cell carcinoma based on the extensive cavitation seen he had noted the patient also has pulmonary nodules bilaterally more so on the right. The patient is post bronchoscopy and transbronchial needle aspirate of the paratracheal mass and the final path was positive for poorly differentiated squamous cell carcinoma 2 right hip metastatic involvement with secondary pain and inability to walk and weightbearing, currently awaiting a surgical intervention and nailing of the hip 3 acute hypercalcemia secondary to metastatic carcinoma, this is secondary to skeletal involvement and skeletal metastases, improving and the calcium level is improved and currently is normalized down to 10.0. 4 COPD 5 chronic smoker 6 remote history of melanoma, resected 7 hypertension 8 hyperlipidemia 9 smoker Plan: She was seen by medical oncology, please refer to their note. From pulmonary perspective no worsening dyspnea, some scattered rhonchi and wheezes, but no acute distress. Continue the nebulized bronchodilators. Vital signs are stable , no acute distress. I performed a history & physical examination of the patient and discussed their management with my nurse practitioner, Nicole Tyson. I reviewed the nurse practitioner's note and agree with the documented findings and plan of care. Lung sounds are positive for some scattered rhonchi. The findings and the impression was discussed with the patient. I attest to the documentation by the nurse practitioner. Time with Patient: Less than 30
--- NOTE | 2018-07-10 14:24 | P.PN ---
Subjective Progress Note Date: 07/10/18 Principal diagnosis: lung mass, hip pain Pt seen in f/u. Reviewed updated information on bone scan, orthopedic specimen pending and biopsy results. Pt is sitting at bedside, denies nausea, VANITA, her hip pain is fairly well controlled. Objective - Vital Signs Vital signs: Vital Signs Temp 97.0 F L 07/10/18 08:00 Pulse 76 07/10/18 12:05 Resp 17 07/10/18 08:00 BP 141/61 07/10/18 08:00 Pulse Ox 93 L 07/10/18 08:00 Intake & Output 07/09/18 07/10/18 07/10/18 18:59 06:59 18:59 Intake Total 540 138 Output Total 1653 1300 700 Balance -1113 -1300 -562 Weight 92.4 kg Intake: IV 20 Invasive Line 4 20 Oral 540 118 Output: Urine 1650 1300 700 Stool 3 Other: Voiding Method Bedside Commode Bedside Commode # Voids 1 2 - Constitutional Constitutional Comment(s): A&O x 4, NAD, respirations even and unlabored General appearance: Present: cooperative, no acute distress, obese - EENT Eyes: Present: anicteric sclerae, EOMI ENT: Present: hearing grossly normal - Peripheral edema leg Peripheral Edema: bilateral: 2+ - Integumentary Integumentary: Present: normal turgor - Neurologic Neurologic: Present: CNII-XII intact - Psychiatric Psychiatric: Present: A&O x's 3, appropriate affect, intact judgment & insight - Labs CBC & Chem 7: 07/10/18 06:32 07/10/18 06:32 Labs: Abnormal Lab Results - Last 24 Hours (Table) 07/09/18 07/09/18 07/10/18 Range/Units 17:18 20:46 06:32 RBC 3.20 L (3.80-5.40) m/uL Hgb 9.2 L D (11.4-16.0) gm/dL Hct 28.9 L (34.0-46.0) % RDW 15.9 H (11.5-15.5) % Eosinophils # 0.8 H (0-0.7) k/uL Sodium (137-145) mmol/L Creatinine (0.52-1.04) mg/dL POC Glucose (mg/dL) 122 H 128 H (75-99) mg/dL 07/10/18 07/10/18 Range/Units 06:32 11:46 RBC (3.80-5.40) m/uL Hgb (11.4-16.0) gm/dL Hct (34.0-46.0) % RDW (11.5-15.5) % Eosinophils # (0-0.7) k/uL Sodium 136 L (137-145) mmol/L Creatinine 1.33 H (0.52-1.04) mg/dL POC Glucose (mg/dL) 124 H (75-99) mg/dL Assessment and Plan (1) Lung mass Narrative/Plan: S/P bronch and biopsy. Squamous cell NSCLC diagnosis. Next Gen sequencing and PDL1 ordered on specimen. Dr. Byrd discussed diagnosis, role of biomarkers in determining treatment options , prognosis without treatment. Pt agreeable only to f/u with Dr. Estrella, appt in chart for a 3 weeks. This will be to discuss findings on nextgen sequencing and answer questions. Pt refused MRI brain and PET scan. Current Visit: Yes Status: Acute Priority: High Code(s): R91.8 - OTHER NONSPECIFIC ABNORMAL FINDING OF LUNG FIELD SNOMED Code(s): 411619247 (2) Hypercalcemia Narrative/Plan: Secondary to malignancy. Treated with bisphosphonate therapy and hydration. Current Visit: Yes Status: Acute Priority: High Code(s): E83.52 - HYPERCALCEMIA SNOMED Code(s): 14982809 (3) Hip pain Narrative/Plan: Pt had nailing with Orthopedics, path on bone fragments pending. Current Visit: Yes Status: Acute Priority: High Code(s): M25.559 - PAIN IN UNSPECIFIED HIP SNOMED Code(s): 99998490 Plan: attests: I have performed H&P and developed impression and plan of patient with dictator. I agree with dictated note, documented as a scribe.
[2018-07-10 16:55] LABS: Glucose,Whole Blood 129 mg/dL (75-99)
--- NOTE | 2018-07-10 17:26 | P.PN ---
Subjective Progress Note Date: 07/10/18 Progress note being dictated for Dr. Rocha. Interval history:Patient is admitted for hypercalcemia which is improving at this point of time patient received the solids chronic acid yesterday. Patient is on IV fluids which will be continued creatinine improved to 1.4. Patient is having a lot of hip pain patient has a lesion in the hip area for which patient the will go for prophylactic Surgical procedure for her right hip patient is to have osteolytic lesion due to metastasis primary being lung cancer patient is undergoing bronchoscopy and biopsy today. A she is comparing of severe pain in the hip area but unable to tolerate Dilaudid very well. Patient will be started on tramadol can you with Tylenol. We cannot use morphine because of her poor renal function bone scan was done yesterday which did not show any other significant bony lesions. 07/06/2018 Patient's hypercalcemia improved patient is still having pain in the right leg and patient will undergo intramedullary nailing tomorrow patient had a biopsy of lung mass yesterday. And discussed the patient regarding surgical procedure for her. Had serum calcium and serum creatinine improved Hip. 07/07/2018 Complaining of pain in the right hip area patient may have some bronchitis I'll start her on doxycycline. Patient will undergo parathyroid scan as her PTH is very high. 07/08/2018 patient unable to complete parathyroid scan. Awaiting intramedullary nailing today. Calcium and continues to improve down to 9.9. Creatinine 1.27. MRI of brain, patient declined. Positive cough sometimes productive. Maintaining O2 sats of 95% on room air. Afebrile. Bronchial biopsy report pending. 07/09/18 status post IM nailing, postop day 1. Right hip pain currently controlled. 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 Met with oncology earlier today. 07/10/2018 surgical pain improved. Met with oncology, discussing options of treatment. Currently states that she wishes to not proceed with any radiation or chemotherapy treatment. Denies any chest pain, palpitations or increasing shortness of breath. Objective - Vital Signs Vital signs: Vital Signs Temp 98.2 F 07/10/18 15:15 Pulse 115 H 07/10/18 16:00 Resp 17 07/10/18 16:00 BP 151/76 07/10/18 15:15 Pulse Ox 95 07/10/18 15:15 Intake & Output 07/09/18 07/10/18 07/10/18 18:59 06:59 18:59 Intake Total 540 178 Output Total 1653 1300 1501 Balance -1113 -1300 -1323 Weight 92.4 kg Intake: IV 60 Invasive Line 4 60 Oral 540 118 Output: Urine 1650 1300 1500 Stool 3 1 Other: Voiding Method Bedside Commode Bedside Commode Bedside Commode # Voids 1 2 - Exam GENERAL: Sitting up at side of bed, alert and oriented x3, no acute distress. HEENT: Pupils are round and equally reacting to light. EOMI. No scleral icterus. No conjunctival pallor. Normocephalic, atraumatic. CARDIOVASCULAR: S1 and S2 present. No murmurs, rubs, or gallops. PULMONARY: Bilateral bases diminished, scattered rhonchi, no wheezing ABDOMEN: Soft, nontender, nondistended, normoactive bowel sounds. No palpable organomegaly. MUSCULOSKELETAL: No joint swelling or deformity. EXTREMITIES: No cyanosis, clubbing, positive bilateral lower extremity edema. NEUROLOGICAL: Gross neurological examination did not reveal any focal deficits. SKIN: No rashes. Status post surgery. - Labs CBC & Chem 7: 07/10/18 06:32 07/10/18 06:32 Labs: Abnormal Lab Results - Last 24 Hours (Table) 07/09/18 07/09/18 07/10/18 Range/Units 17:18 20:46 06:32 RBC 3.20 L (3.80-5.40) m/uL Hgb 9.2 L D (11.4-16.0) gm/dL Hct 28.9 L (34.0-46.0) % RDW 15.9 H (11.5-15.5) % Eosinophils # 0.8 H (0-0.7) k/uL Sodium (137-145) mmol/L Creatinine (0.52-1.04) mg/dL POC Glucose (mg/dL) 122 H 128 H (75-99) mg/dL 07/10/18 07/10/18 07/10/18 Range/Units 06:32 11:46 16:52 RBC (3.80-5.40) m/uL Hgb (11.4-16.0) gm/dL Hct (34.0-46.0) % RDW (11.5-15.5) % Eosinophils # (0-0.7) k/uL Sodium 136 L (137-145) mmol/L Creatinine 1.33 H (0.52-1.04) mg/dL POC Glucose (mg/dL) 124 H 129 H (75-99) mg/dL Assessment and Plan Assessment: -Acute hypercalcemia: possibly Secondary to malignancy: Bone scan did not show any other lesions. Calcium normalized. 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 - Metastatic Lung cancer, status post biopsy reporting poorly differentiated squamous cell CA -Hypertension -Hyperlipidemia -COPD, acute exacerbation - nicotine dependence Plan: Continue on current medication regime ,monitoring and symptomatic treatment. Pain management. Thigh-high teds with bilateral lower extremity See wraps ordered. Maintain nebulized bronchodilators. Prognosis guarded given multiple complex medical issues. Discharge planning in progress. The impression and plan of care has been dictated as directed. : I performed a history and examination of this patient, discussed the same with the dictator. I agree with the dictator's note ,documented as a scribe. Any additional findings or plans will be noted.
[2018-07-10] MEDS: SYMBICORT 160-4.5 MCG INHALER INHALATION SCH (19:57)
[2018-07-10] MEDS: MELATONIN 3 MG TABLET PO SCH (21:04)
[2018-07-10] MEDS: SENNOSIDES-DOCUSATE SODIUM 1 EACH TAB PO SCH (21:04)
[2018-07-10] MEDS: ATORVASTATIN 10 MG TAB PO SCH (21:05)
[2018-07-10 21:06] LABS: Glucose,Whole Blood 124 mg/dL (75-99)
--- NOTE | 2018-07-10 21:47 | PN ---
PROGRESS NOTE HISTORY: The patient is seen for followup for acute kidney injury and hypercalcemia. Serum calcium has improved, currently staying at about 9.3. However, patient is currently volume overloaded. She is status post surgeries for intramedullary nailing of the right femur. The patient denies chest pain or shortness of breath. PHYSICAL EXAMINATION: Blood pressure this morning was 141/61, heart rate of 80 per minute. Patient is afebrile. Examination of the heart, S1, S2. Examination of lungs, bilateral breath sounds are heard. No crackles or wheezing is heard. Abdomen is soft, nontender. Exam of lower extremities shows edema 2+ bilaterally. LABS: Sodium 136, potassium 4.2, BUN 15, serum creatinine 1.3, hemoglobin 9.2 g/dL. ASSESSMENT: 1. Acute kidney injury, initially associated with hypercalcemia, which had improved. Serum creatinine is slightly high again postoperatively. No nephrotoxic agents on board. The patient is advised to continue to avoid NSAIDs as outpatient as well. 2. Volume overload. I will give her 1 dose of IV push Lasix. The patient is encouraged to increase oral protein intake. 3. Hypercalcemia associated with malignancy as well as possibly component of hyperparathyroidism. This can be worked up further as outpatient with a parathyroid nuclear scan. 4. Lytic lesion in the right femur, status post intramedullary nailing. 5. Right upper lobe lung mass with diagnosis of squamous cell non-small cell lung cancer. The patient will follow up as outpatient with Oncology. PLAN: Lasix x1. Increase oral protein intake. Repeat labs tomorrow. MMODL / IJN: [id number] /
[2018-07-11] MEDS: traMADol 50 MG TAB PO PRN ×2 (00:40→08:06)
[2018-07-11] MEDS: HYDROcodone/APAP 10-325MG 1 EACH TAB PO PRN ×3 (02:01→11:10)
[2018-07-11] MEDS: HYDROmorphone 1 MG/ML 1 ML SYRINGE IVP PRN ×3 (05:04→11:10)
[2018-07-11] MEDS: PANTOPRAZOLE 40 MG TABLET PO SCH ×2 (05:04→17:46)
[2018-07-11 05:52] LABS: Glucose,Whole Blood 115 mg/dL (75-99)
[2018-07-11] MEDS: INSULIN ASPART 100 UNIT/ML 1 ML 10 ML VIAL SQ SCH ×3 (05:53→17:46)
[2018-07-11 07:00] LABS: Calcium 9.3 mg/dL (8.4-10.2); Potassium 3.6 mmol/L (3.5-5.1)
[2018-07-11] MEDS: IPRATROPIUM-ALBUTEROL 3 ML NEB INHALATION SCH ×3 (07:53→16:51)
[2018-07-11] MEDS: SYMBICORT 160-4.5 MCG INHALER INHALATION SCH (07:54)
[2018-07-11] MEDS: DOXYCYCLINE 100 MG CAP PO SCH (08:05)
[2018-07-11] MEDS: DOCUSATE 100 MG CAP PO SCH (08:06)
[2018-07-11] MEDS: CHOLECALCIFEROL 1,000 UNIT TAB PO SCH (08:06)
[2018-07-11 11:16] VITALS: RESP 20
[2018-07-11 11:47] LABS: Glucose,Whole Blood 132 mg/dL (75-99)
--- NOTE | 2018-07-11 14:54 | P.PN ---
Subjective Progress Note Date: 07/11/18 Principal diagnosis: Right upper lobe cavitating mass, status post bronchoscopy and transbronchial needle aspirate biopsy A 68-year-old female patient, a chronic smoker with known history of COPD diabetes hypertension hyperlipidemia, presented to the hospital because of a worsening right hip pain. This pain started approximately 2 weeks ago to the point where the patient was unable to put any weight on her right hip. She was initially seen by cardiology. As part of her workup, she had a chest x-ray that abnormal and following that she underwent a CAT scan of the chest that showed a large cavitating thick-walled lesion in the right upper lobe in addition to right hilar and mediastinal mass and extensive mediastinal lymphadenopathy consistent with primary bronchogenic cancer, likely of a squamous cell type due to the extensive cavitation seen in the right upper lobe. The CAT scan also showed pulmonary nodules on the left that were subcentimeter. These were however consistent with metastatic disease knowing that the patient has several metastatic right sided pulmonary lesions also. X- ray of the hip was also completed and the patient had a large destructive lesion in the proximal femur suggestive of malignancy/metastatic involvement. The patient came into the hospital because of the right hip pain and shortness of breath and generalized weakness. Electrodes were done and the patient's creatinine was at 1.4 and a calcium level at a time of admission was 14.4. The patient was given IV fluids. The patient was given Zomig and they're monitoring the calcium level for now. She has chronic exertional dyspnea. She has a chronic congested cough. No hemoptysis. No pleurisy. No previous TB exposure. She has 65-[id number]-[id number] smoking history. The patient will be seen by hematology oncology. Altered mentation. No change in the voice characteristics. The patient is seen again today 07/05/2018 in follow-up on the selective care unit. She is currently awake and alert in no acute distress. She is breathing a bit easier today as compared to yesterday. He is maintaining good O2 saturations in the 90s on room air. She's been afebrile. Hemodynamically stable. Whole-body bone scan revealed no areas of suspicion suggestive of metastasis. X-ray of the right hip revealed a persistence of a lytic lesion within the proximal right mid diaphyseal femur. Orthopedics is recommending a prophylactic intramedullary nailing of the right hip and femur. This is tentatively scheduled for July 08. She is scheduled for bronchoscopy with FNA and core biopsy of the right mediastinal mass today of the with Dr. Louis. On 07/06/2018 and I'm seeing this patient for a follow-up. Doing well. No respiratory difficulties. Bronchoscopy was done yesterday. No complications. Patient was seen by or so. The patient will require into maternity nailing of the right hip. This will be done on Sunday by Dr. Alvarez. No nausea. No vomiting. No headaches. No altered mentation. Pain is under good control. Tolerating diet. No other issues for now. On 07/07/2018, I'm seeing this patient for a follow-up. Doing well. No complaints. No nausea or vomiting. No chest pain. The right hip pain is still present specially when the patient stands up or walks or applies weight on the involved joints. The plan is to perform intramedullary pending of the joint tomorrow. This will stabilize the joint and decrease the risk of fractures. We'll still awaiting the final results from the bronchoscopy and the needle aspirate. The patient is otherwise doing well. She has no specific complaints. On 07/08/2018 patient seen in follow-up on selective care unit. She is resting in bed, she scheduled for surgery intramedullary nailing of the hip. She denies any dyspnea, lung sounds are positive for wheezes and scattered rhonchi. Room air pulse ox is 95%, patient is afebrile, hemodynamically stable, transbronchial needle biopsy report is pending. No chest pain no worsening dyspnea at this time. On 07/09/2018 she seen in follow-up on selective care unit. He is postop day 1 post IT nail placement in the right femur. She is sitting up in the recliner, some [id number] discomfort in the right hip but no acute distress. Denies any dyspnea, lung sounds reveal some scattered rhonchi and appears to be less bronchospastic on today's exam. 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 On 07/10/2018 patient seen in follow-up on selective care unit. Any acute distress, lung sounds are positive for some scattered rhonchi and wheezes, no worsening dyspnea. Her pulse ox is 93%, vital signs are stable. Right hip pain is fairly well-controlled on current pain medications. Transbronchial needle aspirate biopsy of the paratracheal mass was found to be positive for poorly differentiated squamous cell carcinoma. Medical oncology is following On 07/11/2018 patient seen in follow-up care unit. She is sitting up in bed, in no acute distress, patient did have a fall yesterday while ambulating, fell onto her left hip, denies any pain or injury in that left hip. Denies any difficulty breathing, lung sounds reveal a few scattered rhonchi. Patient had met with the medical oncology and she is not interested in any further testing, he does not want any chemotherapy or, at this time patient just wants to go home with hospice Objective - Vital Signs Vital signs: Vital Signs Temp 97.8 F 07/11/18 11:00 Pulse 93 07/11/18 12:00 Resp 20 07/11/18 12:00 BP 155/74 07/11/18 11:00 Pulse Ox 95 07/11/18 11:00 Intake & Output 07/10/18 07/11/18 07/11/18 18:59 06:59 18:59 Intake Total 750 702 6844 Output Total 1501 1 Balance -6622 698 2283 Weight 91.3 kg Intake: IV 60 20 Invasive Line 4 60 20 Oral 566 173 4502 Output: Urine 1500 Stool 1 1 Other: Voiding Method Bedside Commode Bedside Commode Bedside Commode # Voids 2 1 # Bowel Movements 1 - Exam Gen. appearance, comfortable no acute distress. On room air. Head exam was generally normal. There was no scleral icterus or corneal arcus. Mucous membranes were moist. Neck was supple and without jugular venous distension, thyromegaly, or carotid bruits. Carotids were easily palpable bilaterally. There was no adenopathy. Lungs sounds are diminished bilaterally with a few scattered rhonchi Cardiac exam revealed the PMI to be normally situated and sized. The rhythm was regular and no extrasystoles were noted during several minutes of auscultation. The first and second heart sounds were normal and physiologic splitting of the second heart sound was noted. There were no murmurs, rubs, clicks, or gallops. Abdominal exam revealed normal bowel sounds. The abdomen was soft, non-tender, and without masses, organomegaly, or appreciable enlargement of the abdominal aorta. Examination of the extremities revealed easily palpable radial, femoral and pedal pulses. There was no cyanosis, clubbing or edema. Neurologically the patient is awake and alert and there is no focal neurological deficit. Gait is off as the patient is having right hip pain and she is unable to bear weight on the right hip. Examination of the skin revealed no evidence of significant rashes, suspicious appearing nevi or other concerning lesions. There is a scar in the upper back posteriorly related to a previous resection of a malignant melanoma. - Labs CBC & Chem 7: 07/10/18 06:32 07/11/18 06:12 Labs: Abnormal Lab Results - Last 24 Hours (Table) 07/10/18 07/10/18 07/11/18 Range/Units 16:52 21:04 05:51 Sodium (137-145) mmol/L Creatinine (0.52-1.04) mg/dL Glucose (74-99) mg/dL POC Glucose (mg/dL) 129 H 124 H 115 H (75-99) mg/dL 07/11/18 07/11/18 Range/Units 06:12 11:46 Sodium 135 L (137-145) mmol/L Creatinine 1.42 H (0.52-1.04) mg/dL Glucose 109 H (74-99) mg/dL POC Glucose (mg/dL) 132 H (75-99) mg/dL Assessment and Plan Plan: Assessment: 1 right upper lobe cavitating mass with thick walled characteristics and nodular borders in addition to right hilar and mediastinal lymphadenopathy and a 7.5 cm soft tissue mass with extensive mediastinal lymphadenopathy consistent with metastatic lung carcinoma, highly suspect 7 cell carcinoma based on the extensive cavitation seen he had noted the patient also has pulmonary nodules bilaterally more so on the right. The patient is post bronchoscopy and transbronchial needle aspirate of the paratracheal mass and the final path was positive for poorly differentiated squamous cell carcinoma 2 right hip metastatic involvement with secondary pain and inability to walk and weightbearing, currently awaiting a surgical intervention and nailing of the hip 3 acute hypercalcemia secondary to metastatic carcinoma, this is secondary to skeletal involvement and skeletal metastases, improving and the calcium level is improved and currently is normalized down to 10.0. 4 COPD 5 chronic smoker 6 remote history of melanoma, resected 7 hypertension 8 hyperlipidemia 9 smoker Plan: No acute distress, no worsening dyspnea, patient decided to go home with hospice , has declined any further testing and she is not interested in any chemotherapy. We'll follow on as-needed basis, thank you for this consultation I performed a history & physical examination of the patient and discussed their management with my nurse practitioner, Nicole Tyson. I reviewed the nurse practitioner's note and agree with the documented findings and plan of care. Lung sounds are positive for some scattered rhonchi. The findings and the impression was discussed with the patient. I attest to the documentation by the nurse practitioner. Time with Patient: Less than 30
[2018-07-11] MEDS: MORPHINE CONC SOLN 10mg/0.5mL ORAL SYRG PO PRN ×2 (15:24→17:59)
[2018-07-11 15:33] VITALS: BP 135/68; PULSE 80; TEMP 98.8
[2018-07-11] MEDS ORDERED: FUROSEMIDE 10 MG/ML 2 ML VIAL IV STA (16:37)
--- NOTE | 2018-07-11 23:24 | DS ---
DISCHARGE SUMMARY DATE OF SERVICE: 07/11/2018. FINAL DIAGNOSES: 1. Acute hypercalcemia, possibly secondary to metastatic lung cancer status post biopsy showing poorly differentiated squamous cell carcinoma. 2. Osteophytic right hip lesion status post intramedullary nailing, possibly metastatic. 3. Hypertension. 4. Hyperlipidemia. 5. Chronic obstructive pulmonary disease acute exacerbation. 6. History of nicotine dependence. 7. NO CODE, NO CPR, NO VENT. 8. On hospice. DISCHARGE CONDITION: The patient is being discharged in stable condition with extremely guarded prognosis. HISTORY OF PRESENT ILLNESS: This 68-year-old woman with past medical history of multiple medical problems was admitted with acute hypercalcemia. Evaluation showed possible metastatic lung cancer. The patient also had osteophytic right hip lesion. Intramedullary nailing was done. Case was discussed along with multiple consultants. At this time the patient opted for no treatment and hospice also. Discussion also held. Hospice is being arranged. Please refer to this case management staff notes and consult notes for further details. On exam, vitals are stable. Cardiovascular System, S1 and S2 muffled. Lungs breath sounds diminished. Few scattered rhonchi. Abdomen is soft. DISCHARGE INSTRUCTIONS: 1. Cardiac diet. 2. Activity limited. FOLLOWUP: 1. Follow up with Dr. Ariza in 2 to 3 days. 2. Follow up with Orthopedics and Oncology as recommended. 3. Follow up with hospice as mentioned. MEDICATIONS: 1. Symbicort 2 puffs b.i.d. 2. Vitamin D3, 2000 daily. 3. Hydrochlorothiazide 25 mg p.o. daily. 4. Krill oil 500 mg daily. 5. Lisinopril 40 mg daily. 6. Zocor 20 mg at bedtime. 7. Janumet 100 one p.o. b.i.d. 8. Spiriva 1 puff daily. 9. Tylenol 650 every 6 hours p.r.n. 10.Aspirin 81 mg p.o. daily. 11.Fentanyl patch 12 mcg every 72 hours. 12.M[place]land 5 mg every 6 hours p.r.n. 13.DuoNeb q.i.d. and p.r.n. 14.Ativan 0.5 mg every 8 hours p.r.n. 15.Roxanol 10 mg every 4 hours p.r.n. 16.Protonix 40 mg b.i.d. 17.Xarelto 10 mg p.o. daily. 18.Senokot-S 1 tablet p.o. b.i.d. Once again, the patient will be discharged in stable condition with guarded prognosis. MMODL / IJN: [id number] /
--- NOTE | 2018-07-12 00:03 | PN ---
PROGRESS NOTE HISTORY: Patient is seen for followup for acute kidney injury and hypercalcemia from malignancy and possibly hyperparathyroidism. The patient is being discharged today. She will be going with home hospice. She has had swelling and has received a dose of Lasix for the last couple of days. PHYSICAL EXAMINATION: This afternoon, blood pressure 135/68, heart rate 80 per minute. Patient is afebrile. Examination of the heart S1, S2. Examination of lungs, bilateral breath sounds are heard. Abdomen is soft, nontender. Examination of lower extremities shows edema 1+ bilaterally. [employer] exam is grossly intact. LABS: Sodium 135, potassium 3.6, BUN 17, serum creatinine 1.42. ASSESSMENT: 1. Acute kidney injury secondary to hypercalcemia. This has improved. Renal function is slightly weak again with serum creatinine mildly elevated again, up to 1.4 from 1.15 two days ago postoperatively as well as secondary to recent diuresis. 2. Volume overload, third spacing, and interstitial edema. Will repeat IV push Lasix x1 before the patient is discharged. 3. Right upper lobe lung mass with lytic lesion in the right femur, status post intramedullary nailing. 4. Hypercalcemia secondary to malignancy as well as possibly related to primary hyperparathyroidism. We will hold off further workup as patient is going with home hospice. MMODL / IJN: [id number] /
--- NOTE | 2018-08-15 08:21 | P.OP ---
Date of Procedure: 07/08/18 Procedure(s) Performed: PREOPERATIVE DIAGNOSIS: Right femoral metastatic lesion with impending fracture. POSTOPERATIVE DIAGNOSIS: Right femoral metastatic lesion with impending fracture OPERATION: 1. Right femoral prophylactic intramedullary nailing using Synthes Recon nail. 2. Biopsy of intramedullary contents from reamings. STEREOTYPER HELPER: Carline Gates PA-C (assistance with: Patient positioning, retraction, exposure, reduction, fixation, irrigation, hemostasis, closure, dressing) ANESTHESIA: General ESTIMATED BLOOD LOSS: 100 mL. SPECIMENS REMOVED: None COMPLICATIONS: None OPERATIVE FINDINGS: See below INDICATIONS: Mrs. Castro is a 68-year-old female with a history of metastatic lesion involving the proximal region of the right femur . The patient is having significant weightbearing pain and the concern is for impending fracture. I have recommended prophylactic intramedullary nailing with a Recon nail. I have explained the procedure in detail. The patient wishes to proceed with the operation after explanation of the steps of the procedure as well as potential risks and complications. These have been explained as being inclusive of, but not limited to: Bleeding, infection, scarring, discomfort, blood vessel and/or nerve damage, fracture, blood clot, pulmonary embolism, need for further surgery, gait disturbance, , and other risks. The consent form has been authorized. PROCEDURE: After appropriate consent was obtained, the patient was taken to the operating room and placed in supine position. Gen. anesthetic was administered and after confirmation of adequate anesthesia, the patient was carefully placed in the supine position on the operating room table in the fracture table. The patient was placed up against a well-padded peroneal post. Care was taken to make sure about that all pressure points were adequately padded. The affected leg was carefully placed in boot traction and the unaffected leg was placed in a well leg valles. The thigh was prepped and draped in the usual aseptic fashion using ChloraPrep. Ioban drape was used for the case and the patient received intravenous antibiotics prior to incision. Timeout was called for the case according to hospital standards, confirming patient identity, side, procedure, and administration of antibiotics. The incision was then created with a #10 blade just proximal to the greater trochanter laterally. It was carried down through skin into the subcutaneous tissues and through fascia. Hemostasis was obtained using electrocautery. The tip of the greater trochanter was palpated and a guide pin was placed at the tip and directed into the femoral shaft as assessed with C-arm imaging. Once optimal pin position had been obtained, a reamer was used over the guide pin to create a path for the nail. Measurements were taken for length and diameter of nail. A long guide pin was then placed into the medullary canal of the femur and reaming was performed to size 12 mm. material was carefully gathered and sent for pathological analysis. Lesional material was confirmed based on gross appearance of the reamings. Recon nail selected was assembled to the insertion jig on the back table and bushings were checked for accuracy. The nail was then inserted using gentle mallet taps until it was fully deployed. The amount of rotation of the implant was assessed based on the amount of anteversion of the femoral neck. This was rotated to match the patient's femoral neck anteversion and the recon screws were placed through the insertion jig and through an incision on the lateral side of the thigh more distal than the first. Once this guide was placed against the lateral cortex of the femur, guide pins were drilled into the lower central region of the femoral head and neck as based on AP and lateral C-arm imaging. Once optimal pin position had been obtained, the guidewire was measured and appropriately sized screws were selected. Screws were then inserted without problem. The distal interlocks were then placed using standard freehand technique. Finally, the insertion jig for the nail was removed and final C-arm images were taken and saved in both AP and lateral planes. The final x-rays showed satisfactory positioning of the implant without evidence of fracture. The top of the nail was plugged with a small quantity of bone wax and the incisions were then thoroughly irrigated with normal saline. Final hemostasis was obtained using electrocautery and closure of the fascia was performed using 0- Vicryl suture. 2-0 Vicryl suture was used in the subcutaneous tissues and fred were used for the skin. Sterile dressing was then applied and the patient was carefully removed from the fracture table frame and placed onto the stretcher. The patient tolerated the procedure well. There were no complications and approximately 100 mL of blood loss. The patient was then subsequently transferred to recovery room in stable condition. Sponge and needle counts were correct.
== END 2018-07-11 19:28 | disposition hospice, home (50) | DRG 477 ==
LOC: EC 16:13 → 3SCARD 18:43
PROVIDERS: ADMIT Hospitalist; ATTEND Hospitalist
PROC: 0BDC8ZX Extraction of Right Upper Lung Lobe, Via Natural or Artificial Opening Endoscopic, Diagnostic (ICD-10-PCS; principal; 2018-07-05 07:30)
PROC: 0QH636Z Insertion of Intramedullary Internal Fixation Device into Right Upper Femur, Percutaneous Approach (ICD-10-PCS; 2018-07-08)
PROC: 0QB60ZX Excision of Right Upper Femur, Open Approach, Diagnostic (ICD-10-PCS; 2018-07-08)
DX: C79.51 Secondary malignant neoplasm of bone (principal); N17.0 Acute kidney failure with tubular necrosis; C34.01 Malignant neoplasm of right main bronchus; J44.1 Chronic obstructive pulmonary disease with (acute) exacerbation; E83.52 Hypercalcemia; E11.9 Type 2 diabetes mellitus without complications; E78.5 Hyperlipidemia, unspecified; E87.70 Fluid overload, unspecified; F17.210 Nicotine dependence, cigarettes, uncomplicated; G47.33 Obstructive sleep apnea (adult) (pediatric); I10 Essential (primary) hypertension; I45.10 Unspecified right bundle-branch block; J98.09 Other diseases of bronchus, not elsewhere classified; Z79.51 Long term (current) use of inhaled steroids; Z79.899 Other long term (current) drug therapy; Z85.820 Personal history of malignant melanoma of skin; Z87.74 Personal history of (corrected) congenital malformations of heart and circulatory system; Z66 Do not resuscitate
CPT/HCPCS: 31629; 36415; 71046; 73502; 78306; 80048; 80053; 82330; 82550; 82553; 83036; 83735; 83970; 84100; 84439; 84443; 84481; 84484; 85025; 85610; 85730; 88173; 88305; 88307; 88311; 88341; 88342; 93005; 94640; 94760; 96360; 99285